=== PATIENT | female | born 1940 | race Caucasian/White ===

== ENCOUNTER → 2016-10-11 | Outpatient (CLI) | payer MEDICARE, OTHER ==
[~2016-10-11] MED LIST: DICL1GEL26 TD; HYDR-2549 PO; HYDR12.56 PO; LEVO125T59 PO; NIAC500T71 PO; NIFE30TA76 PO; RIVA20TA PO; TELM80TA PO
[2016-10-11 08:51] LABS: Basophils # (auto) 0.1 uL; Basophils % (auto) 0.7 % (0.0-2.0); Eosinophils # (auto) 0.4 uL; Eosinophils % (auto) 4.9 % (0.0-7.0); Hematocrit 38.2 % (36.0-46.0); Hemoglobin 12.9 g/dL (12.2-16.2); Lymphocytes # (auto) 2.4 uL; Lymphocytes % (auto) 28.2 % (10.0-50.0); Mean Corpuscular Hemoglobin 29.7 pg (28.0-32.0); Mean Corpuscular Hgb Conc. 33.8 g/dL (32.0-36.0); Mean Corpuscular Volume 87.8 fL (80.0-100.0); Mean Platelet Volume 7.8 fL (7.4-10.4); Monocytes # (auto) 0.6 uL; Monocytes % (auto) 6.8 % (0.0-12.0); Neutrophils % (auto) 59.4 % (37.0-80.0); Platelet Count (auto) 353 10^3/uL (140-450); Red Cell Distribution Width 13.9 % (11.6-16.0); White Blood Cell 8.4 10^3/uL (4.4-10.8)
[2016-10-11 09:03] LABS: Urine Bilirubin Negative (Negative); Urine Blood Negative /uL (Negative); Urine Color Yellow (Yellow); Urine Glucose Normal (Normal); Urine Ketone Negative (Negative); Urine Nitrite Negative (Negative); Urine RBC <1 /hpf (0 - 4); Urine Squamous Epithelial Cell FEW /hpf (<5); Urine Urobilinogen Normal (Negative)
[2016-10-11 09:19] LABS: Albumin 4.3 g/dL (3.4-5.0); BUN/Creatinine Ratio 25.9; Bilirubin, Total 0.6 mg/dL (0.2-1.0); Calcium 9.5 mg/dL (8.5-10.1); Total Protein 8.2 g/dL (6.4-8.2)
== END | disposition home or self-care (01) ==
LOC: LAB 08:26
DX: Z68.33 Body mass index [BMI] 33.0-33.9, adult (principal); I10 Essential (primary) hypertension; N18.3 Chronic kidney disease, stage 3 (moderate)
CPT/HCPCS: 36415; 80053; 80061; 81001; 83036; 84443; 85025

== ENCOUNTER → 2017-06-30 | Outpatient (CLI) | payer MEDICARE, OTHER ==
[2017-06-30 09:11] LABS: Albumin 4.1 g/dL (3.4-5.0); BUN/Creatinine Ratio 26.2; Bilirubin, Total 0.3 mg/dL (0.2-1.0); Calcium 9.3 mg/dL (8.5-10.1); Potassium 3.8 mmol/L (3.5-5.1); Uric Acid 7.7 mg/dL (2.6-6.0)
== END | disposition home or self-care (01) ==
LOC: LAB 08:19
PROVIDERS: ATTEND Internal Medicine
DX: I12.9 Hypertensive chronic kidney disease with stage 1 through stage 4 chronic kidney disease, or unspecified chronic kidney disease (principal); N18.4 Chronic kidney disease, stage 4 (severe)
CPT/HCPCS: 36415; 80053; 84550

== ENCOUNTER 2017-11-05 09:18 | Inpatient (IN) | payer MEDICARE, OTHER ==
[~2017-11-05] VITALS: Ht 149.9 cm; Wt 70.9 kg
[2017-11-05] VITALS (12 sets, daily range): BP systolic 121–187; BP diastolic 59–139
[2017-11-05 10:00] LABS: Basophils # (auto) 0.1 uL; Red Blood Cells 2.74 10^6/uL (4.0-5.20)
[2017-11-05 10:02] LABS: Eosinophils # (auto) 0.2 uL; Eosinophils % (auto) 1.7 % (0.0-7.0); Hematocrit 21.3 % (36.0-46.0); Lymphocytes # (auto) 1.3 uL; Lymphocytes % (auto) 9.4 % (10.0-50.0); Mean Corpuscular Hemoglobin 24.7 pg (28.0-32.0); Mean Corpuscular Hgb Conc. 31.7 g/dL (32.0-36.0); Mean Corpuscular Volume 77.9 fL (80.0-100.0); Monocytes # (auto) 0.6 uL; Monocytes % (auto) 4.2 % (0.0-12.0); Neutrophils # (auto) 11.6 uL; Neutrophils % (auto) 83.7 % (37.0-80.0); Platelet Count (auto) 343 10^3/uL (140-450); Red Cell Distribution Width 15.8 % (11.8-14.3); White Blood Cell 13.9 10^3/uL (4.4-10.8)
[2017-11-05 10:16] LABS: Albumin 3.4 g/dL (3.4-5.0); BUN/Creatinine Ratio 17.4; Calcium 8.4 mg/dL (8.5-10.1)
[2017-11-05 10:18] LABS: Hemoglobin 6.8 g/dL (12.2-16.2)
[2017-11-05 10:21] LABS: Bilirubin, Total 0.3 mg/dL (0.2-1.0); Total Protein 7.2 g/dL (6.4-8.2)
[2017-11-05] MEDS ORDERED: SODIUM CHLORIDE 0.9% 1,000 ML IV ONE (11:14)
[2017-11-05 11:59] LABS: INR 0.96 (0.9-1.15); Magnesium 2.8 mg/dL (1.6-2.6); Partial Thromboplastin Time 28.7 sec (23.78-33.04); Prothrombin Time 10.3 sec (9.27-12.13)
[2017-11-05 15:13] LABS: Urine Bacteria FEW /hpf (None Seen); Urine Blood Negative /uL (Negative); Urine Specific Gravity 1.008 (1.001-1.035); Urine WBC 9 /hpf (0 - 5)
[2017-11-05] MEDS ORDERED: LORazepam 2MG/ML-1ML VIAL ONE (18:26)
[2017-11-05] MEDS ORDERED: DILTIAZEM HCL 25 MG/5 ML VIAL IV ONE (18:26)
[2017-11-05] MEDS ORDERED: FUROSEMIDE 40 MG/4 ML VIAL ONE (18:35)
[2017-11-05] MEDS ORDERED: ACETAMINOPHEN 500 MG TAB PO PRN (18:45)
[2017-11-05] MEDS ORDERED: TEMAZEPAM 15 MG CAP PO PRN (18:45)
[2017-11-05] MEDS ORDERED: FUROSEMIDE 40 MG/4 ML VIAL IV ONE ×2 (18:45)
[2017-11-05] MEDS ORDERED: LACTULOSE 20Gm/30ML SOLN PO PRN (18:45)
[2017-11-05] MEDS ORDERED: SPIRONOLACTONE 25 MG TAB PO ONE ×2 (18:45)
[2017-11-05] MEDS ORDERED: NITROGLYCERIN 0.4 MG SL TAB SL PRN (18:45)
[2017-11-05] MEDS ORDERED: cefTRIAXone 1GM/10ml IVPUSH 10 ML IV ONE (18:45)
[2017-11-05] MEDS ORDERED: PANTOPRAZOLE 40 MG/10 ML VIAL IV ONE (18:45)
[2017-11-05] MEDS ORDERED: LORazepam 0.5 MG TAB PO PRN (18:45)
[2017-11-05] MEDS ORDERED: MORPHINE SULF INJ 2 MG/ML SYRINGE 1ML IV PRN ×2 (18:45)
[2017-11-05] MEDS ORDERED: NITROGLYCERIN 0.4 MG SL TAB SL ONE ×2 (18:48→19:00)
[2017-11-05] MEDS ORDERED: MORPHINE SULFATE 4 MG/ML SYR/VIAL ONE (18:51)
[2017-11-05] MEDS ORDERED: PROMETHAZINE HCL 25 MG/ML 1ML ONE ×2 (18:52→18:56)
[2017-11-05] MEDS ORDERED: PROMETHAZINE HCL 25 MG/ML 1ML IV ONE ×3 (19:00→19:15)
[2017-11-05] MEDS ORDERED: MORPHINE SULF INJ 2 MG/ML SYRINGE 1ML IV ONE ×2 (19:00→19:15)
[2017-11-05] MEDS ORDERED: LORazepam 2MG/ML-1ML VIAL IV ONE (19:00)
[2017-11-05 19:19] LABS: Basophils # (auto) 0.2 uL; Basophils % (auto) 1.1 % (0.0-2.0); Eosinophils # (auto) 0 uL; Eosinophils % (auto) 0.1 % (0.0-7.0); Hematocrit 31.5 % (36.0-46.0); Hemoglobin 9.7 g/dL (12.2-16.2); Lymphocytes # (auto) 1.8 uL; Lymphocytes % (auto) 11.3 % (10.0-50.0); Mean Corpuscular Hemoglobin 24.6 pg (28.0-32.0); Mean Corpuscular Hgb Conc. 30.8 g/dL (32.0-36.0); Mean Corpuscular Volume 79.8 fL (80.0-100.0); Monocytes # (auto) 0.9 uL; Monocytes % (auto) 5.7 % (0.0-12.0); Neutrophils # (auto) 12.8 uL; Neutrophils % (auto) 81.8 % (37.0-80.0); Platelet Count (auto) 413 10^3/uL (140-450); Red Blood Cells 3.94 10^6/uL (4.0-5.20); Red Cell Distribution Width 16.1 % (11.8-14.3); White Blood Cell 15.6 10^3/uL (4.4-10.8)
[2017-11-05 19:20] LABS: Albumin 3.7 g/dL (3.4-5.0); BUN/Creatinine Ratio 16.2; Bilirubin, Total 0.3 mg/dL (0.2-1.0); Calcium 8.9 mg/dL (8.5-10.1); Potassium 4.2 mmol/L (3.5-5.1); Total Protein 7.9 g/dL (6.4-8.2)
[2017-11-05] MEDS: FUROSEMIDE 40 MG/4 ML VIAL IV SCH (20:21)
[2017-11-05] MEDS: SODIUM CHLOR 0.9% PF (SALINE LOCK) 10ML VIAL/SYR IV SCH (20:23)
[2017-11-05] MEDS ORDERED: ATORVASTATIN 20 MG TAB PO SCH (22:00)
[2017-11-05] MEDS: POTASSIUM CHL 20 Meq TABLET PO SCH (22:47)
[2017-11-05] MEDS: PANTOPRAZOLE 40 MG TAB PO SCH (22:47)
[2017-11-05] MEDS: CARVEDILOL 3.125 MG TAB PO SCH (22:47)
[2017-11-06] VITALS (52 sets, daily range): BP systolic 71–157; BP diastolic 40–92
[2017-11-06 00:51] LABS: Hemoglobin 8.1 g/dL (12.2-16.2)
[2017-11-06] MEDS: HYDROcodone-ACET 5/325MG TAB PO PRN ×2 (00:52→16:37)
[2017-11-06 00:53] LABS: Hematocrit 25.4 % (36.0-46.0)
[2017-11-06 04:59] LABS: Basophils # (auto) 0.1 uL; Eosinophils # (auto) 0 uL; Eosinophils % (auto) 0.2 % (0.0-7.0); Lymphocytes # (auto) 1.2 uL; Lymphocytes % (auto) 9.9 % (10.0-50.0)
[2017-11-06 05:12] LABS: Basophils % (auto) 0.7 % (0.0-2.0); Hematocrit 24.3 % (36.0-46.0); Hemoglobin 7.8 g/dL (12.2-16.2); Mean Corpuscular Hemoglobin 25.3 pg (28.0-32.0); Mean Corpuscular Hgb Conc. 32.3 g/dL (32.0-36.0); Mean Corpuscular Volume 78.3 fL (80.0-100.0); Monocytes # (auto) 0.8 uL; Neutrophils # (auto) 9.7 uL; Neutrophils % (auto) 82.2 % (37.0-80.0); Platelet Count (auto) 296 10^3/uL (140-450); White Blood Cell 11.8 10^3/uL (4.4-10.8)
[2017-11-06 06:02] LABS: BUN/Creatinine Ratio 15.9; Bilirubin, Total 0.5 mg/dL (0.2-1.0); Calcium 8.4 mg/dL (8.5-10.1); Potassium 4.1 mmol/L (3.5-5.1); Total Protein 6.6 g/dL (6.4-8.2)
[2017-11-06] MEDS: FUROSEMIDE 40 MG/4 ML VIAL IV SCH ×2 (06:26→19:19)
[2017-11-06] MEDS: SODIUM CHLOR 0.9% PF (SALINE LOCK) 10ML VIAL/SYR IV SCH ×3 (06:26→21:06)
[2017-11-06] MEDS ORDERED: NITROGLYCERIN 50MG/250ML 250 ML IV SCH (09:07)
[2017-11-06] MEDS: cefTRIAXone 1GM/10ml IVPUSH 10 ML IV SCH (09:35)
[2017-11-06] MEDS: PANTOPRAZOLE 40 MG TAB PO SCH ×2 (09:35→21:08)
[2017-11-06] MEDS: POTASSIUM CHL 20 Meq TABLET PO SCH ×2 (09:35→21:06)
[2017-11-06] MEDS: CARVEDILOL 3.125 MG TAB PO SCH ×2 (09:36→21:07)
[2017-11-06] MEDS ORDERED: ENOXAPARIN SOD 80 MG/0.8ML SYRINGE SC SCH (10:00)
[2017-11-06] MEDS ORDERED: ASPirin 81 mg TAB PO SCH (10:00)
[2017-11-06] MEDS ORDERED: ENALAPRIL MALEATE 2.5 MG TAB PO SCH (10:00)
[2017-11-06] MEDS ORDERED: NITROGLYCERIN 0.2MG/HR TOPICAL PATCH TD SCH (10:00)
[2017-11-06 13:59] LABS: Hematocrit 27.6 % (36.0-46.0)
[2017-11-06 14:01] LABS: Hemoglobin 8.7 g/dL (12.2-16.2)
[2017-11-06] MEDS ORDERED: AMIODARONE HCL 150 MG in D5W 5% 100 ML IV ONE (18:30)
[2017-11-06] MEDS ORDERED: AMIODARONE HCL 900 MG in DEXTROSE 500 ML IV SCH (18:36)
[2017-11-06] MEDS ORDERED: EPOETIN ALFA 10,000 UNIT/1 ML VIAL IV ONE (20:00)
[2017-11-06] MEDS: TRAVOPROST 0.004% EACHEYE SCH (21:06)
[2017-11-06] MEDS: ATORVASTATIN 20 MG TAB PO SCH (21:07)
[2017-11-07] VITALS (57 sets, daily range): BP systolic 92–151; BP diastolic 33–80
[2017-11-07] MEDS ORDERED: AMIODARONE HCL 900 MG in DEXTROSE 500 ML IV SCH (00:36)
[2017-11-07 04:43] LABS: Basophils # (auto) 0.1 uL; Basophils % (auto) 1.1 % (0.0-2.0); Eosinophils # (auto) 0.3 uL; Hematocrit 25.3 % (36.0-46.0); Red Blood Cells 3.27 10^6/uL (4.0-5.20)
[2017-11-07 04:46] LABS: Eosinophils % (auto) 3.2 % (0.0-7.0); Hemoglobin 8.3 g/dL (12.2-16.2); Lymphocytes # (auto) 1.7 uL; Lymphocytes % (auto) 16.8 % (10.0-50.0); Mean Corpuscular Hemoglobin 25.3 pg (28.0-32.0); Mean Corpuscular Hgb Conc. 32.7 g/dL (32.0-36.0); Mean Corpuscular Volume 77.3 fL (80.0-100.0); Monocytes # (auto) 0.8 uL; Neutrophils # (auto) 7.4 uL; Neutrophils % (auto) 70.9 % (37.0-80.0); Platelet Count (auto) 324 10^3/uL (140-450); White Blood Cell 10.4 10^3/uL (4.4-10.8)
[2017-11-07 05:03] LABS: BUN/Creatinine Ratio 16.3; Bilirubin, Total 0.4 mg/dL (0.2-1.0); Calcium 8.2 mg/dL (8.5-10.1); Total Protein 6.6 g/dL (6.4-8.2)
[2017-11-07] MEDS: FUROSEMIDE 40 MG/4 ML VIAL IV SCH (05:55)
[2017-11-07] MEDS: SODIUM CHLOR 0.9% PF (SALINE LOCK) 10ML VIAL/SYR IV SCH ×3 (05:55→21:59)
[2017-11-07] MEDS ORDERED: FUROSEMIDE 40 MG/4 ML VIAL IV SCH (10:00)
[2017-11-07] MEDS ORDERED: ENOXAPARIN SOD 80 MG/0.8ML SYRINGE SC SCH (10:00)
[2017-11-07] MEDS: cefTRIAXone 1GM/10ml IVPUSH 10 ML IV SCH (10:27)
[2017-11-07] MEDS: CARVEDILOL 3.125 MG TAB PO SCH (10:32)
[2017-11-07] MEDS: POTASSIUM CHL 20 Meq TABLET PO SCH ×2 (10:32→22:01)
[2017-11-07] MEDS: PANTOPRAZOLE 40 MG TAB PO SCH ×2 (10:33→22:02)
[2017-11-07] MEDS ORDERED: DOCUSATE SOD 100 MG CAP PO ONE (14:00)
[2017-11-07] MEDS: TRAVOPROST 0.004% EACHEYE SCH (21:59)
[2017-11-07] MEDS ORDERED: CARVEDILOL 3.125 MG TAB PO SCH (22:00)
[2017-11-07] MEDS: AMIODARONE HCL 200 MG TAB PO SCH (22:00)
[2017-11-07] MEDS: ATORVASTATIN 20 MG TAB PO SCH (22:02)
[2017-11-07] MEDS: DOCUSATE SOD 100 MG CAP PO SCH (22:04)
[2017-11-07] MEDS: HYDROcodone-ACET 5/325MG TAB PO PRN (22:04)
[2017-11-08 00:11] VITALS: BP 96/42
[2017-11-08 04:00] VITALS: BP 105/44
[2017-11-08 05:40] LABS: Basophils # (auto) 0.1 uL; Monocytes # (auto) 0.8 uL; Neutrophils # (auto) 6.4 uL; Neutrophils % (auto) 63.8 % (37.0-80.0); Nucleated Red Blood Cells % 0.1 %; Red Cell Distribution Width 16.1 % (11.8-14.3)
[2017-11-08 05:42] LABS: Basophils % (auto) 1.3 % (0.0-2.0); Eosinophils # (auto) 0.7 uL; Eosinophils % (auto) 6.5 % (0.0-7.0); Hematocrit 27.7 % (36.0-46.0); Hemoglobin 8.6 g/dL (12.2-16.2); Lymphocytes % (auto) 20.1 % (10.0-50.0); Mean Corpuscular Volume 80.5 fL (80.0-100.0); Monocytes % (auto) 8.3 % (0.0-12.0); Platelet Count (auto) 327 10^3/uL (140-450); Red Blood Cells 3.45 10^6/uL (4.0-5.20)
[2017-11-08] MEDS: SODIUM CHLOR 0.9% PF (SALINE LOCK) 10ML VIAL/SYR IV SCH ×3 (05:49→22:18)
[2017-11-08] MEDS: HYDROcodone-ACET 5/325MG TAB PO PRN ×2 (05:49→21:29)
[2017-11-08 06:00] LABS: Albumin 2.7 g/dL (3.4-5.0); Calcium 8.2 mg/dL (8.5-10.1); Potassium 4.1 mmol/L (3.5-5.1)
[2017-11-08 06:02] LABS: BUN/Creatinine Ratio 19.7
[2017-11-08 06:05] LABS: Bilirubin, Total 0.3 mg/dL (0.2-1.0); Total Protein 6.5 g/dL (6.4-8.2)
[2017-11-08 07:58] VITALS: BP 122/53
[2017-11-08] MEDS ORDERED: cefTRIAXone 1GM/10ml IVPUSH 10 ML IV SCH (09:00)
[2017-11-08] MEDS: CARVEDILOL 3.125 MG TAB PO SCH ×2 (10:12→21:31)
[2017-11-08] MEDS: AMIODARONE HCL 200 MG TAB PO SCH ×2 (10:12→21:31)
[2017-11-08] MEDS: PANTOPRAZOLE 40 MG TAB PO SCH ×2 (10:13→21:29)
[2017-11-08] MEDS: DOCUSATE SOD 100 MG CAP PO SCH ×2 (10:13→21:29)
[2017-11-08 14:06] VITALS: BP 113/46
[2017-11-08 17:00] VITALS: BP 139/57
[2017-11-08] MEDS: TRAVOPROST 0.004% EACHEYE SCH (21:44)
[2017-11-08 21:50] VITALS: BP 131/51
[2017-11-08] MEDS: ATORVASTATIN 20 MG TAB PO SCH (22:18)
[2017-11-09 01:00] VITALS: BP 97/45
[2017-11-09 05:52] VITALS: BP 121/45
[2017-11-09 06:35] LABS: Basophils # (auto) 0.1 uL; Eosinophils # (auto) 0.6 uL; Lymphocytes # (auto) 1.5 uL; Mean Corpuscular Hemoglobin 24.7 pg (28.0-32.0); Mean Corpuscular Volume 78.1 fL (80.0-100.0)
[2017-11-09 06:37] LABS: Basophils % (auto) 1.5 % (0.0-2.0); Eosinophils % (auto) 6.7 % (0.0-7.0); Hematocrit 27.4 % (36.0-46.0); Hemoglobin 8.7 g/dL (12.2-16.2); Lymphocytes % (auto) 16.2 % (10.0-50.0); Mean Corpuscular Hgb Conc. 31.6 g/dL (32.0-36.0); Monocytes # (auto) 0.7 uL; Monocytes % (auto) 8.3 % (0.0-12.0); Neutrophils % (auto) 67.3 % (37.0-80.0); Nucleated Red Blood Cells % 0.1 %; Platelet Count (auto) 369 10^3/uL (140-450); Red Blood Cells 3.51 10^6/uL (4.0-5.20); Red Cell Distribution Width 15.7 % (11.8-14.3)
[2017-11-09] MEDS: SODIUM CHLOR 0.9% PF (SALINE LOCK) 10ML VIAL/SYR IV SCH ×3 (06:42→22:18)
[2017-11-09 06:58] LABS: Calcium 8.4 mg/dL (8.5-10.1); Potassium 4.2 mmol/L (3.5-5.1)
[2017-11-09 07:00] LABS: BUN/Creatinine Ratio 24.7
[2017-11-09 09:00] VITALS: BP 140/69
[2017-11-09] MEDS: DOCUSATE SOD 100 MG CAP PO SCH ×2 (10:42→22:00)
[2017-11-09] MEDS: PANTOPRAZOLE 40 MG TAB PO SCH ×2 (10:42→22:18)
[2017-11-09] MEDS: AMIODARONE HCL 200 MG TAB PO SCH ×2 (10:43→22:09)
[2017-11-09] MEDS: CARVEDILOL 3.125 MG TAB PO SCH ×2 (10:43→22:17)
[2017-11-09] MEDS ORDERED: EPOETIN ALFA 10,000 UNIT/1 ML VIAL SC ONE (12:30)
[2017-11-09 13:00] VITALS: BP_SYST 146; BP_SYST 153; BP_DIAS 62; BP_DIAS 72
[2017-11-09] MEDS: FERROUS SULFATE 325 MG TAB PO SCH (18:23)
[2017-11-09 22:00] VITALS: BP 132/52
[2017-11-09] MEDS: ATORVASTATIN 20 MG TAB PO SCH (22:18)
[2017-11-09] MEDS: TRAVOPROST 0.004% EACHEYE SCH (22:18)
[2017-11-09] MEDS: HYDROcodone-ACET 5/325MG TAB PO PRN (22:48)
[2017-11-10 05:00] VITALS: BP 98/69
[2017-11-10] MEDS: SODIUM CHLOR 0.9% PF (SALINE LOCK) 10ML VIAL/SYR IV SCH ×3 (06:42→22:03)
[2017-11-10 07:27] LABS: Hematocrit 26.5 % (36.0-46.0); Hemoglobin 8.5 g/dL (12.2-16.2)
[2017-11-10 07:43] LABS: BUN/Creatinine Ratio 22.6; Calcium 8.9 mg/dL (8.5-10.1)
[2017-11-10] MEDS: FERROUS SULFATE 325 MG TAB PO SCH ×2 (09:02→17:45)
[2017-11-10] MEDS: AMIODARONE HCL 200 MG TAB PO SCH (09:03)
[2017-11-10] MEDS: PANTOPRAZOLE 40 MG TAB PO SCH (09:03)
[2017-11-10] MEDS: DOCUSATE SOD 100 MG CAP PO SCH ×2 (09:03→21:53)
[2017-11-10] MEDS: CARVEDILOL 3.125 MG TAB PO SCH (09:04)
[2017-11-10 09:57] VITALS: BP 141/51
[2017-11-10] MEDS ORDERED: LEVOTHYROXINE SODIUM 50 MCG TAB PO ONE (11:30)
[2017-11-10 13:00] VITALS: BP 143/60
[2017-11-10 17:13] VITALS: BP 135/59
[2017-11-10] MEDS: ATORVASTATIN 20 MG TAB PO SCH (21:49)
[2017-11-10] MEDS: METOPROLOL TARTRATE 25 MG TAB PO SCH (21:52)
[2017-11-10] MEDS: HYDROcodone-ACET 5/325MG TAB PO PRN (21:53)
[2017-11-10 22:00] VITALS: BP 139/56
[2017-11-10] MEDS: TRAVOPROST 0.004% EACHEYE SCH (22:00)
[2017-11-10] MEDS ORDERED: MIRTAZAPINE 30 MG TAB PO SCH (22:00)
[2017-11-11 05:30] VITALS: BP 126/58
[2017-11-11] MEDS: SODIUM CHLOR 0.9% PF (SALINE LOCK) 10ML VIAL/SYR IV SCH (06:18)
[2017-11-11] MEDS ORDERED: LEVOTHYROXINE SODIUM 50 MCG TAB PO SCH (07:00)
[2017-11-11 07:39] VITALS: BP 137/59
[2017-11-11] MEDS: DOCUSATE SOD 100 MG CAP PO SCH (09:15)
[2017-11-11] MEDS: FERROUS SULFATE 325 MG TAB PO SCH (09:15)
[2017-11-11] MEDS: METOPROLOL TARTRATE 25 MG TAB PO SCH (09:21)
[2017-11-11] MEDS ORDERED: PANTOPRAZOLE 40 MG TAB PO SCH (10:00)
[2017-11-11] MEDS ORDERED: FER325T PO (10:52)
[2017-11-11] MEDS ORDERED: MIR30T PO (10:52)
[2017-11-11] MEDS ORDERED: MET25T PO (10:52)
[2017-11-11] MEDS ORDERED: ATOR20TA50 PO (10:52)
[2017-11-11 12:29] VITALS: BP 142/51
== END 2017-11-11 13:51 | disposition home health service (06) | DRG 871 ==
LOC: ER 09:18 → EDBD 09:18 → TELE 09:19 → ICU WEST 11-06 08:00 → DOU IN ICU 11-06 17:26 → EAST 11-08 13:24 → TELE-EAST 11-08 13:42
PROVIDERS: ADMIT Internal Medicine; ATTEND Internal Medicine
PROC: 5A09357 Assistance with Respiratory Ventilation, Less than 24 Consecutive Hours, Continuous Positive Airway Pressure (ICD-10-PCS; principal; 2017-11-05)
PROC: 30233N1 Transfusion of Nonautologous Red Blood Cells into Peripheral Vein, Percutaneous Approach (ICD-10-PCS; 2017-11-05)
PROC: 5A09357 Assistance with Respiratory Ventilation, Less than 24 Consecutive Hours, Continuous Positive Airway Pressure (ICD-10-PCS; 2017-11-06)
PROC: 5A09357 Assistance with Respiratory Ventilation, Less than 24 Consecutive Hours, Continuous Positive Airway Pressure (ICD-10-PCS; 2017-11-07)
PROC: 5A09357 Assistance with Respiratory Ventilation, Less than 24 Consecutive Hours, Continuous Positive Airway Pressure (ICD-10-PCS; 2017-11-08)
PROC: 5A09357 Assistance with Respiratory Ventilation, Less than 24 Consecutive Hours, Continuous Positive Airway Pressure (ICD-10-PCS; 2017-11-09)
PROC: 5A09357 Assistance with Respiratory Ventilation, Less than 24 Consecutive Hours, Continuous Positive Airway Pressure (ICD-10-PCS; 2017-11-10)
PROC: 5A09357 Assistance with Respiratory Ventilation, Less than 24 Consecutive Hours, Continuous Positive Airway Pressure (ICD-10-PCS; 2017-11-11)
DX: A41.9 Sepsis, unspecified organism (principal); J96.00 Acute respiratory failure, unspecified whether with hypoxia or hypercapnia; I21.4 Non-ST elevation (NSTEMI) myocardial infarction; N17.0 Acute kidney failure with tubular necrosis; I50.31 Acute diastolic (congestive) heart failure; N18.4 Chronic kidney disease, stage 4 (severe); N39.0 Urinary tract infection, site not specified; I13.0 Hypertensive heart and chronic kidney disease with heart failure and stage 1 through stage 4 chronic kidney disease, or unspecified chronic kidney disease; I51.81 Takotsubo syndrome; D64.9 Anemia, unspecified; E78.5 Hyperlipidemia, unspecified; E03.9 Hypothyroidism, unspecified; D63.8 Anemia in other chronic diseases classified elsewhere; G47.33 Obstructive sleep apnea (adult) (pediatric); I25.5 Ischemic cardiomyopathy; I48.91 Unspecified atrial fibrillation; Z96.612 Presence of left artificial shoulder joint; Z96.643 Presence of artificial hip joint, bilateral; Z96.653 Presence of artificial knee joint, bilateral; M19.90 Unspecified osteoarthritis, unspecified site; Z79.899 Other long term (current) drug therapy; Z88.2 Allergy status to sulfonamides; Z90.49 Acquired absence of other specified parts of digestive tract; Z98.49 Cataract extraction status, unspecified eye; Z79.82 Long term (current) use of aspirin; Z80.1 Family history of malignant neoplasm of trachea, bronchus and lung; Z80.3 Family history of malignant neoplasm of breast; Z80.41 Family history of malignant neoplasm of ovary; Z80.8 Family history of malignant neoplasm of other organs or systems; Z82.0 Family history of epilepsy and other diseases of the nervous system; Z82.3 Family history of stroke
CPT/HCPCS: 36415; 36430; 36600; 51702; 71045; 71046; 76775; 80048; 80053; 80061; 81001; 82270; 82378; 82550; 82805; 83735; 83880; 84443; 84484; 85014; 85018; 85025; 85045; 85379; 85610; 85652; 85730; 86141; 86850; 86900; 86901; 86920; 87081; 87086; 93005; 93306; 94660; 96361; 96374; 96375; 97116; 97163; 97530; C9113; J0885; J7060

== ENCOUNTER → 2018-02-25 | Outpatient (CLI) | payer MEDICARE, OTHER ==
[~2018-02-25] MED LIST changes: +ATOR20TA50 PO; +FER325T PO; -HYDR12.56 PO; +MET25T PO; +MIR30T PO; -NIFE30TA76 PO; -RIVA20TA PO; -TELM80TA PO
[2018-02-25 12:26] LABS: Potassium 3.4 mmol/L (3.5-5.1)
[2018-02-25 12:37] LABS: Free T4 (Free Thyroxine) 1.24 ng/dL (0.89-1.76)
[2018-02-25 12:38] LABS: Bilirubin, Total 0.3 mg/dL (0.2-1.0); Calcium 9.3 mg/dL (8.5-10.1); Total Protein 8.4 g/dL (6.4-8.2); Uric Acid 6.1 mg/dL (2.6-6.0)
== END | disposition home or self-care (01) ==
LOC: LAB 11:02
PROVIDERS: ATTEND Internal Medicine
DX: I12.9 Hypertensive chronic kidney disease with stage 1 through stage 4 chronic kidney disease, or unspecified chronic kidney disease (principal); N18.4 Chronic kidney disease, stage 4 (severe); D64.9 Anemia, unspecified
CPT/HCPCS: 36415; 80053; 82607; 83540; 83615; 84439; 84443; 84550

== ENCOUNTER → 2018-07-29 | Outpatient (CLI) | payer MEDICARE, OTHER ==
[2018-07-29 14:04] LABS: Basophils # (auto) 0.1 uL; Basophils % (auto) 1.2 % (0.0-2.0); Eosinophils # (auto) 0.4 uL; Eosinophils % (auto) 4.6 % (0.0-7.0); Hemoglobin 12.9 g/dL (12.2-16.2); Lymphocytes # (auto) 1.5 uL; Lymphocytes % (auto) 19.6 % (10.0-50.0); Mean Corpuscular Hemoglobin 30.3 pg (28.0-32.0); Mean Corpuscular Hgb Conc. 33.1 g/dL (32.0-36.0); Mean Corpuscular Volume 91.6 fL (80.0-100.0); Monocytes # (auto) 0.5 uL; Monocytes % (auto) 6.6 % (0.0-12.0); Neutrophils # (auto) 5.4 uL; Nucleated Red Blood Cells % 1.8 %; Platelet Count (auto) 318 10^3/uL (140-450); Red Blood Cells 4.26 10^6/uL (4.0-5.20); Red Cell Distribution Width 13.4 % (11.8-14.3); White Blood Cell 7.9 10^3/uL (4.4-10.8)
[2018-07-29 14:27] LABS: Albumin 4.3 g/dL (3.4-5.0); BUN/Creatinine Ratio 22.9; Calcium 9.7 mg/dL (8.5-10.1)
[2018-07-29 14:30] LABS: Bilirubin, Total 0.3 mg/dL (0.2-1.0); Total Protein 8.8 g/dL (6.4-8.2)
== END | disposition home or self-care (01) ==
LOC: LAB 13:48
PROVIDERS: ATTEND Internal Medicine
DX: I12.9 Hypertensive chronic kidney disease with stage 1 through stage 4 chronic kidney disease, or unspecified chronic kidney disease (principal); N18.3 Chronic kidney disease, stage 3 (moderate); D64.9 Anemia, unspecified
CPT/HCPCS: 36415; 80053; 84439; 84443; 85025

== ENCOUNTER → 2018-11-19 | Outpatient (CLI) | payer MEDICARE, OTHER ==
[2018-11-19 15:33] LABS: Urine Bacteria NONE SEEN /hpf (None Seen); Urine Blood Negative /uL (Negative); Urine Specific Gravity 1.005 (1.001-1.035); Urine WBC 3 /hpf (0 - 5)
== END | disposition home or self-care (01) ==
LOC: LAB 14:53
PROVIDERS: ATTEND Urology
DX: N32.81 Overactive bladder (principal); R35.1 Nocturia; I12.9 Hypertensive chronic kidney disease with stage 1 through stage 4 chronic kidney disease, or unspecified chronic kidney disease; N18.4 Chronic kidney disease, stage 4 (severe)
CPT/HCPCS: 81001; 87086

== ENCOUNTER → 2018-12-11 | Outpatient (CLI) | payer MEDICARE, OTHER ==
[2018-12-11 09:01] LABS: Basophils # (auto) 0.1 uL; Basophils % (auto) 1.8 % (0.0-2.0); Eosinophils # (auto) 0.4 uL; Eosinophils % (auto) 5.3 % (0.0-7.0); Hematocrit 35.6 % (36.0-46.0); Hemoglobin 11.8 g/dL (12.2-16.2); Lymphocytes # (auto) 1.6 uL; Lymphocytes % (auto) 19.3 % (10.0-50.0); Mean Corpuscular Hemoglobin 29.9 pg (28.0-32.0); Mean Corpuscular Volume 90.6 fL (80.0-100.0); Monocytes # (auto) 0.5 uL; Monocytes % (auto) 6.4 % (0.0-12.0); Neutrophils # (auto) 5.4 uL; Neutrophils % (auto) 67.2 % (37.0-80.0); Platelet Count (auto) 343 10^3/uL (140-450); Red Blood Cells 3.93 10^6/uL (4.0-5.20); Red Cell Distribution Width 13.9 % (11.8-14.3)
[2018-12-11 09:11] LABS: Urine Bacteria FEW /hpf (None Seen); Urine Blood Negative /uL (Negative); Urine Specific Gravity 1.006 (1.001-1.035); Urine WBC 3 /hpf (0 - 5)
[2018-12-11 10:47] LABS: Potassium 3.9 mmol/L (3.5-5.1)
[2018-12-11 10:56] LABS: BUN/Creatinine Ratio 23.2; Bilirubin, Total 0.5 mg/dL (0.2-1.0); Calcium 9.4 mg/dL (8.5-10.1); Phosphorus 4.2 mg/dL (2.5-4.90); Total Protein 8.2 g/dL (6.4-8.2); Uric Acid 6.4 mg/dL (2.6-6.0)
== END | disposition home or self-care (01) ==
LOC: LAB 08:02
PROVIDERS: ATTEND Internal Medicine
DX: I12.9 Hypertensive chronic kidney disease with stage 1 through stage 4 chronic kidney disease, or unspecified chronic kidney disease (principal); N18.4 Chronic kidney disease, stage 4 (severe); E03.9 Hypothyroidism, unspecified; E78.5 Hyperlipidemia, unspecified
CPT/HCPCS: 36415; 80053; 80061; 81001; 82043; 82962; 83970; 84100; 84439; 84443; 84550; 85025; 85652

== ENCOUNTER → 2019-03-22 | Outpatient (CLI) | payer MEDICARE, OTHER | END | disposition home or self-care (01) | LOC: LAB 09:08 | PROVIDERS: ATTEND Internal Medicine | DX: D64.9 Anemia, unspecified (principal) | CPT/HCPCS: 82270 ==

== ENCOUNTER → 2019-07-06 | Outpatient (CLI) | payer MEDICARE, OTHER ==
[2019-07-06 12:38] LABS: Basophils # (auto) 0.1 uL; Eosinophils # (auto) 0.2 uL; Eosinophils % (auto) 2.9 % (0.0-7.0); Hematocrit 37.9 % (36.0-46.0); Hemoglobin 12.4 g/dL (12.2-16.2); Lymphocytes # (auto) 1.6 uL; Lymphocytes % (auto) 18.5 % (10.0-50.0); Mean Corpuscular Hemoglobin 29.7 pg (28.0-32.0); Mean Corpuscular Hgb Conc. 32.7 g/dL (32.0-36.0); Mean Corpuscular Volume 90.8 fL (80.0-100.0); Monocytes # (auto) 0.5 uL; Neutrophils # (auto) 6.1 uL; Neutrophils % (auto) 71.6 % (37.0-80.0); Nucleated Red Blood Cells % 0.1 %; Platelet Count (auto) 312 10^3/uL (140-450); Red Blood Cells 4.17 10^6/uL (4.0-5.20); Red Cell Distribution Width 14.1 % (11.8-14.3); White Blood Cell 8.5 10^3/uL (4.4-10.8)
[2019-07-06 13:12] LABS: Albumin 4.3 g/dL (3.4-5.0); BUN/Creatinine Ratio 24.9; Bilirubin, Total 0.3 mg/dL (0.2-1.0); Calcium 9.9 mg/dL (8.5-10.1); Total Protein 8.6 g/dL (6.4-8.2); Uric Acid 6.1 mg/dL (2.6-6.0)
== END | disposition home or self-care (01) ==
LOC: LAB 11:49
PROVIDERS: ATTEND Internal Medicine
DX: E83.52 Hypercalcemia (principal); I12.9 Hypertensive chronic kidney disease with stage 1 through stage 4 chronic kidney disease, or unspecified chronic kidney disease; N18.3 Chronic kidney disease, stage 3 (moderate)
CPT/HCPCS: 36415; 80053; 82043; 82784; 83970; 84439; 84443; 84550; 85025; 85652; 86334

== ENCOUNTER → 2019-11-10 | Outpatient (CLI) | payer MEDICARE, OTHER ==
[2019-11-10 09:29] LABS: Basophils # (auto) 0.1 10 ^3/uL (0-0.2); Basophils % (auto) 0.9 % (0.0-2.0); Eosinophils # (auto) 0.3 10 ^3/uL (0-0.8); Eosinophils % (auto) 4.1 % (0.0-7.0); Hematocrit 35.6 % (36.0-46.0); Hemoglobin 11.8 g/dL (12.2-16.2); Lymphocytes # (auto) 1.3 10 ^3/uL (0.4-5.4); Lymphocytes % (auto) 15.7 % (10.0-50.0); Mean Corpuscular Hemoglobin 29.7 pg (28.0-32.0); Mean Corpuscular Hgb Conc. 33.1 g/dL (32.0-36.0); Mean Corpuscular Volume 89.6 fL (80.0-100.0); Monocytes # (auto) 0.5 10 ^3/uL (0-1.3); Monocytes % (auto) 6.1 % (0.0-12.0); Neutrophils # (auto) 6.3 10 ^3/uL (1.6-8.6); Neutrophils % (auto) 73.2 % (37.0-80.0); Platelet Count (auto) 324 10^3/uL (140-450); Red Blood Cells 3.97 10^6/uL (4.0-5.20); Red Cell Distribution Width 14.2 % (11.8-14.3); White Blood Cell 8.6 10^3/uL (4.4-10.8)
[2019-11-10 09:35] LABS: Urine Bacteria NONE SEEN /hpf (None Seen); Urine Blood Negative /uL (Negative); Urine Specific Gravity 1.005 (1.001-1.035); Urine WBC 3 /hpf (0 - 5)
[2019-11-10 09:53] LABS: Albumin 4.1 g/dL (3.4-5.0); Calcium 8.5 mg/dL (8.5-10.1); Potassium 3.8 mmol/L (3.5-5.1)
[2019-11-10 09:58] LABS: BUN/Creatinine Ratio 22.3; Bilirubin, Total 0.5 mg/dL (0.2-1.0); Phosphorus 5.3 mg/dL (2.5-4.90); Total Protein 8.2 g/dL (6.4-8.2)
== END | disposition home or self-care (01) ==
LOC: LAB 08:54
PROVIDERS: ATTEND Internal Medicine
DX: I12.9 Hypertensive chronic kidney disease with stage 1 through stage 4 chronic kidney disease, or unspecified chronic kidney disease (principal); N18.4 Chronic kidney disease, stage 4 (severe); R06.00 Dyspnea, unspecified
CPT/HCPCS: 36415; 80053; 80061; 81001; 82043; 82306; 83880; 83970; 84100; 84439; 84443; 85025; 85652

== ENCOUNTER → 2020-02-10 | Outpatient (CLI) | payer MEDICARE, OTHER ==
[2020-02-10 10:52] LABS: Basophils # (auto) 0.1 10 ^3/uL (0-0.2); Basophils % (auto) 1.3 % (0.0-2.0); Eosinophils # (auto) 0.2 10 ^3/uL (0-0.8); Eosinophils % (auto) 2.8 % (0.0-7.0); Hematocrit 33.4 % (36.0-46.0); Lymphocytes # (auto) 1.4 10 ^3/uL (0.4-5.4); Lymphocytes % (auto) 16.4 % (10.0-50.0); Mean Corpuscular Hemoglobin 29.7 pg (28.0-32.0); Mean Corpuscular Volume 90.2 fL (80.0-100.0); Monocytes # (auto) 0.5 10 ^3/uL (0-1.3); Monocytes % (auto) 5.3 % (0.0-12.0); Neutrophils # (auto) 6.4 10 ^3/uL (1.6-8.6); Neutrophils % (auto) 74.2 % (37.0-80.0); Platelet Count (auto) 333 10^3/uL (140-450); Red Cell Distribution Width 14.6 % (11.8-14.3); White Blood Cell 8.6 10^3/uL (4.4-10.8)
[2020-02-10 11:13] LABS: INR 1.01 (0.9-1.15)
[2020-02-10 11:24] LABS: Calcium 8.5 mg/dL (8.5-10.1); Potassium 3.6 mmol/L (3.5-5.1)
[2020-02-10 11:29] LABS: BUN/Creatinine Ratio 22.9; Bilirubin, Total 0.4 mg/dL (0.2-1.0)
== END | disposition home or self-care (01) ==
LOC: LAB 10:33
PROVIDERS: ATTEND Internal Medicine
DX: N18.4 Chronic kidney disease, stage 4 (severe) (principal)
CPT/HCPCS: 36415; 80053; 85025; 85610

== ENCOUNTER 2020-12-22 13:49 | Emergency (ER) | payer MEDICARE, OTHER ==
[~2020-12-22] VITALS: Ht 157.5 cm; Wt 72.6 kg
[2020-12-22 15:23] VITALS: BP 180/100
[2020-12-22] MEDS ORDERED: HYDROcodone-ACET 5/325MG TAB PO ONE (15:30)
== END 2020-12-22 17:05 | disposition home or self-care (01) ==
LOC: EDBD 13:49 → EDUNIT# 13:49 → ER 13:49
DX: S02.31XA Fracture of orbital floor, right side, initial encounter for closed fracture (principal); S01.81XA Laceration without foreign body of other part of head, initial encounter; S50.12XA Contusion of left forearm, initial encounter; I10 Essential (primary) hypertension; Z79.899 Other long term (current) drug therapy; Z88.2 Allergy status to sulfonamides; W01.0XXA Fall on same level from slipping, tripping and stumbling without subsequent striking against object, initial encounter; Y93.89 Activity, other specified; Y92.89 Other specified places as the place of occurrence of the external cause; Y99.8 Other external cause status
CPT/HCPCS: 12011; 70450; 70486

== ENCOUNTER → 2021-11-21 | Outpatient (CLI) | payer MEDICARE, OTHER ==
[2021-11-21 09:31] LABS: Basophils # (auto) 0.1 10 ^3/uL (0-0.2); Basophils % (auto) 0.9 % (0.0-2.0); Eosinophils # (auto) 0.4 10 ^3/uL (0-0.8); Eosinophils % (auto) 3.8 % (0.0-7.0); Hematocrit 32.4 % (36.0-46.0); Hemoglobin 10.7 g/dL (12.2-16.2); Lymphocytes % (auto) 18.4 % (10.0-50.0); Mean Corpuscular Hemoglobin 31.5 pg (28.0-32.0); Mean Corpuscular Hgb Conc. 33.1 g/dL (32.0-36.0); Mean Corpuscular Volume 95.3 fL (80.0-100.0); Monocytes # (auto) 0.7 10 ^3/uL (0-1.3); Monocytes % (auto) 6.2 % (0.0-12.0); Neutrophils # (auto) 7.7 10 ^3/uL (1.6-8.6); Neutrophils % (auto) 70.7 % (37.0-80.0); Nucleated Red Blood Cells % 0.1 %; Red Cell Distribution Width 14.2 % (11.8-14.3); White Blood Cell 10.9 10^3/uL (4.4-10.8)
[2021-11-21 09:43] LABS: Albumin 3.3 g/dL (3.4-5.0); BUN/Creatinine Ratio 8.1; Uric Acid 4.2 mg/dL (2.6-6.0)
[2021-11-21 09:48] LABS: Bilirubin, Total 0.4 mg/dL (0.2-1.0); Total Protein 7.6 g/dL (6.4-8.2)
[2021-11-21 09:54] LABS: Free T4 (Free Thyroxine) 1.12 ng/dL (0.89-1.76)
== END | disposition home or self-care (01) ==
LOC: LAB 08:41
PROVIDERS: ATTEND Internal Medicine
DX: E03.9 Hypothyroidism, unspecified (principal); I10 Essential (primary) hypertension
CPT/HCPCS: 36415; 80053; 80061; 82607; 83970; 84439; 84443; 84550; 85025; 85652

== ENCOUNTER 2022-05-17 08:37 | Inpatient (IN) | payer MEDICARE, OTHER ==
[~2022-05-17] VITALS: Ht 154.9 cm; Wt 59.0 kg
[2022-05-17] MEDS ORDERED: dilTIAZem 25 MG/5 ML VIAL IV ONE (09:00)
[2022-05-17 09:26] LABS: Hematocrit 32.4 % (36.0-46.0); Hemoglobin 10.6 g/dL (12.2-16.2); Mean Corpuscular Hemoglobin 32.3 pg (28.0-32.0); Mean Corpuscular Hgb Conc. 32.7 g/dL (32.0-36.0); Mean Corpuscular Volume 98.8 fL (80.0-100.0); Red Blood Cells 3.28 10^6/uL (4.0-5.20); White Blood Cell 17.3 10^3/uL (4.4-10.8)
[2022-05-17 09:33] LABS: Basophils % (manual) 0 (0.0-2.0); Blast Cells 0; Eosinophils % (manual) 0 (0-7); Metamyelocytes % 0; Myelocytes % 0; Promyelocytes % 0; Reactive Lymphocytes 0
[2022-05-17 09:39] LABS: BUN/Creatinine Ratio 8.3; Calcium 7.7 mg/dL (8.5-10.1); Magnesium 1.9 mg/dL (1.6-2.6); Potassium 3.4 mmol/L (3.5-5.1)
[2022-05-17 09:42] LABS: Bilirubin, Total 0.4 mg/dL (0.2-1.0); Total Protein 5.5 g/dL (6.4-8.2)
[2022-05-17 10:32] LABS: Lactic Acid w/Reflex 2.4 mmol/L (0.4-2.0)
[2022-05-17 11:22] LABS: Band Neutrophils % (manual) 31; Lymphocytes % (manual) 7 (10.0-50.0); Monocytes % (manual) 2 (0-12)
[2022-05-17] MEDS ORDERED: dilTIAZem 125mg/125ml BAG KIT 125 ML IV ONE (12:00)
[2022-05-17] MEDS ORDERED: PIPERACILLIN-TAZOB 3.375GM 100 ML IV ONE (12:30)
[2022-05-17] MEDS ORDERED: levoFLOXacin 500MG 100 ML IV ONE (12:30)
[2022-05-17] MEDS ORDERED: SODIUM CHLORIDE 0.9% 500 ML IV ONE (12:30)
[2022-05-17] MEDS ORDERED: dilTIAZem 25 MG/5 ML VIAL IV PRN (12:45)
[2022-05-17] MEDS ORDERED: DICLOFENAC SODIUM 1% TD PRN (14:00)
[2022-05-17] MEDS ORDERED: ACETAMINOPHEN 325 MG TAB PO PRN (14:00)
[2022-05-17] MEDS ORDERED: HYDROmorphone HCL 2 MG/ML VL/or syr IV PRN (14:00)
[2022-05-17] MEDS ORDERED: DOCUSATE SOD 100 MG CAP PO PRN (14:00)
[2022-05-17] MEDS ORDERED: ONDANSETRON HCL 4 MG/2 ML VIAL IV PRN (14:00)
[2022-05-17] MEDS: SODIUM CHLOR 0.9% PF (SALINE LOCK) 10ML VIAL/SYR IV SCH ×2 (14:25→22:24)
[2022-05-17] MEDS ORDERED: PANTOPRAZOLE 40 MG/10 ML VIAL INJ IV ONE (14:30)
[2022-05-17] MEDS ORDERED: dilTIAZem 125mg/125ml BAG KIT 125 ML IV SCH (15:30)
[2022-05-17] MEDS: dilTIAZem 125mg/125ml BAG KIT 100 ML IV SCH (15:57)
[2022-05-17] MEDS: FERROUS SULFATE 325mg EC TAB PO SCH (18:00)
[2022-05-17] MEDS ORDERED: LIDOCAINE 1% (LOCAL ANESTH.) PF 5ml SDV ID ONE (19:45)
[2022-05-17 20:02] VITALS: BP 96/39
[2022-05-17 20:42] VITALS: BP 102/42
[2022-05-17] MEDS ORDERED: SODIUM CHLOR 0.9% PF (SALINE LOCK) 10ML VIAL/SYR IV SCH (22:00)
[2022-05-17 22:41] VITALS: BP 97/67
[2022-05-17] MEDS: ATORVASTATIN 20 MG TAB PO SCH (23:13)
[2022-05-17] MEDS: MIRTAZAPINE 30 MG TAB PO SCH (23:14)
[2022-05-17] MEDS: METOPROLOL TARTRATE 25 MG TAB PO SCH (23:14)
[2022-05-17 23:32] VITALS: BP 94/52
[2022-05-18] MEDS: ZOLPIDEM TARTRATE 5 MG TAB PO PRN ×2 (01:54→21:24)
[2022-05-18 02:00] VITALS: BP 84/44
[2022-05-18 04:09] VITALS: BP 94/40
[2022-05-18] MEDS: dilTIAZem 125mg/125ml BAG KIT 100 ML IV SCH (05:00)
[2022-05-18] MEDS: SODIUM CHLOR 0.9% PF (SALINE LOCK) 10ML VIAL/SYR IV SCH ×3 (06:16→22:00)
[2022-05-18] MEDS: FERROUS SULFATE 325mg EC TAB PO SCH ×2 (08:27→18:56)
[2022-05-18] MEDS: METOPROLOL TARTRATE 25 MG TAB PO SCH (10:13)
[2022-05-18] MEDS: PANTOPRAZOLE 40 MG/10 ML VIAL INJ IV SCH (10:13)
[2022-05-18] MEDS: LEVOTHYROXINE SODIUM 25 MCG TAB PO SCH (10:14)
[2022-05-18 11:13] LABS: Hematocrit 28.3 % (36.0-46.0); Hemoglobin 9.5 g/dL (12.2-16.2); Mean Corpuscular Hemoglobin 33.4 pg (28.0-32.0); Mean Corpuscular Hgb Conc. 33.5 g/dL (32.0-36.0); Mean Corpuscular Volume 99.7 fL (80.0-100.0); Red Blood Cells 2.84 10^6/uL (4.0-5.20); Red Cell Distribution Width 14.1 % (11.8-14.3); White Blood Cell 20.5 10^3/uL (4.4-10.8)
[2022-05-18 11:20] LABS: Basophils % (manual) 0 (0.0-2.0); Blast Cells 0; Eosinophils % (manual) 0 (0-7); Metamyelocytes % 0; Promyelocytes % 0; Reactive Lymphocytes 0
[2022-05-18 11:30] LABS: Albumin 1.7 g/dL (3.4-5.0); BUN/Creatinine Ratio 9.1; Calcium 7.4 mg/dL (8.5-10.1); Magnesium 1.8 mg/dL (1.6-2.6); Potassium 3.4 mmol/L (3.5-5.1)
[2022-05-18 11:32] LABS: Bilirubin, Total 0.4 mg/dL (0.2-1.0); Total Protein 4.9 g/dL (6.4-8.2)
[2022-05-18 13:28] LABS: Band Neutrophils % (manual) 19; Lymphocytes % (manual) 6 (10.0-50.0); Monocytes % (manual) 4 (0-12); Myelocytes % 1
[2022-05-18] MEDS ORDERED: dilTIAZem HCL 180MG ER CAP PO ONE (14:00)
[2022-05-18] MEDS ORDERED: MAGNESIUM SULFATE 1GM/100ML 100 ML IV ONE (14:00)
[2022-05-18] MEDS ORDERED: ENOXAPARIN SOD 30 MG/0.3 ML SYRINGE SC ONE (14:00)
[2022-05-18] MEDS ORDERED: DIGOXIN (250MCG/ML) 2 ML AMPULE IV ONE (14:00)
[2022-05-18] MEDS ORDERED: POTASSIUM CHL 20 Meq TABLET PO ONE (14:00)
[2022-05-18] MEDS ORDERED: PERITONEAL DIALYSIS 2.5% SOLN 2,000 ML IP ONE (14:45)
[2022-05-18 20:30] VITALS: BP 83/41
[2022-05-18] MEDS ORDERED: SODIUM CHLORIDE 0.9% 500 ML IV ONE (22:15)
[2022-05-18 22:20] VITALS: BP 85/66
[2022-05-18] MEDS: ATORVASTATIN 20 MG TAB PO SCH (23:12)
[2022-05-18] MEDS: MIRTAZAPINE 30 MG TAB PO SCH (23:12)
[2022-05-19 00:10] VITALS: BP 90/34
[2022-05-19] MEDS ORDERED: NOREPINEPHRINE 8 MG/250ML KIT 250 ML IV SCH (00:45)
[2022-05-19 02:05] VITALS: BP 97/33
[2022-05-19 03:50] VITALS: BP 91/46
[2022-05-19 05:36] VITALS: BP 97/35
[2022-05-19] MEDS: SODIUM CHLOR 0.9% PF (SALINE LOCK) 10ML VIAL/SYR IV SCH ×3 (06:00→21:56)
[2022-05-19 06:45] LABS: Hematocrit 28.3 % (36.0-46.0); Hemoglobin 9.4 g/dL (12.2-16.2); Mean Corpuscular Hemoglobin 33.8 pg (28.0-32.0); Mean Corpuscular Hgb Conc. 33.3 g/dL (32.0-36.0); Mean Corpuscular Volume 101.4 fL (80.0-100.0); Red Blood Cells 2.79 10^6/uL (4.0-5.20); Red Cell Distribution Width 14.1 % (11.8-14.3); White Blood Cell 22.7 10^3/uL (4.4-10.8)
[2022-05-19 06:51] LABS: Basophils % (manual) 0 (0.0-2.0); Blast Cells 0; Eosinophils % (manual) 0 (0-7); Metamyelocytes % 0; Myelocytes % 0; Promyelocytes % 0; Reactive Lymphocytes 0
[2022-05-19 06:59] LABS: Potassium 3.9 mmol/L (3.5-5.1)
[2022-05-19 07:06] LABS: Albumin 1.6 g/dL (3.4-5.0); BUN/Creatinine Ratio 9.4; Bilirubin, Total 0.5 mg/dL (0.2-1.0); Calcium 7.8 mg/dL (8.5-10.1); Magnesium 2.1 mg/dL (1.6-2.6); Total Protein 5.6 g/dL (6.4-8.2)
[2022-05-19 09:40] LABS: Band Neutrophils % (manual) 19; Lymphocytes % (manual) 9 (10.0-50.0); Monocytes % (manual) 2 (0-12)
[2022-05-19] MEDS: dilTIAZem HCL 180MG ER CAP PO SCH (10:00)
[2022-05-19] MEDS: PANTOPRAZOLE 40 MG/10 ML VIAL INJ IV SCH (10:25)
[2022-05-19] MEDS: FERROUS SULFATE 325mg EC TAB PO SCH ×2 (10:25→19:45)
[2022-05-19] MEDS: LEVOTHYROXINE SODIUM 25 MCG TAB PO SCH (10:26)
[2022-05-19] MEDS: ENOXAPARIN SOD 30 MG/0.3 ML SYRINGE SC SCH (10:26)
[2022-05-19] MEDS ORDERED: BACITRACIN INJ 50000 UNIT VIAL TOP ONE (11:00)
[2022-05-19] MEDS: PIPERACILLIN-TAZOB 2.25GM 50 ML IV SCH ×2 (11:10→23:36)
[2022-05-19] MEDS ORDERED: NEOMYCIN-BACITRACIN-POLYM UNITDOSE PKG TOP OINT TOP ONE (11:15)
[2022-05-19] MEDS ORDERED: levoFLOXacin 250MG 50 ML IV SCH (12:00)
[2022-05-19] MEDS ORDERED: LORazepam 0.5 MG TAB PO ONE (14:00)
[2022-05-19 19:55] VITALS: BP 120/41
[2022-05-19] MEDS: ZOLPIDEM TARTRATE 5 MG TAB PO PRN ×2 (20:18→21:56)
[2022-05-19] MEDS: MIRTAZAPINE 30 MG TAB PO SCH (21:56)
[2022-05-19] MEDS: ATORVASTATIN 20 MG TAB PO SCH (21:56)
[2022-05-20] MEDS ORDERED: diphenhdrAMINE HCL 50 MG/1 ML VL IV ONE (01:45)
[2022-05-20 02:23] VITALS: BP 102/66
[2022-05-20 04:10] VITALS: BP 117/68
[2022-05-20] MEDS ORDERED: LACTATED RINGER'S 500 ML IV ONE (05:00)
[2022-05-20] MEDS ORDERED: LORazepam 2MG/ML-1ML VIAL IV ONE (05:00)
[2022-05-20] MEDS ORDERED: dilTIAZem 25 MG/5 ML VIAL IV ONE (05:00)
[2022-05-20] MEDS: SODIUM CHLOR 0.9% PF (SALINE LOCK) 10ML VIAL/SYR IV SCH ×3 (06:14→21:49)
[2022-05-20 06:23] LABS: Albumin 1.7 g/dL (3.4-5.0); Potassium 4.1 mmol/L (3.5-5.1)
[2022-05-20 06:27] LABS: BUN/Creatinine Ratio 8.7; Bilirubin, Total 0.5 mg/dL (0.2-1.0); Total Protein 5.6 g/dL (6.4-8.2)
[2022-05-20] MEDS ORDERED: LORazepam 2MG/ML-1ML VIAL ONE (07:28)
[2022-05-20] MEDS ORDERED: LORazepam 2MG/ML-1ML VIAL IV PRN (07:30)
[2022-05-20 07:48] LABS: Basophils # (auto) 0 10 ^3/uL (0-0.2); Basophils % (auto) 0.2 % (0.0-2.0); Eosinophils # (auto) 0.1 10 ^3/uL (0-0.8); Eosinophils % (auto) 0.4 % (0.0-7.0); Hematocrit 28.3 % (36.0-46.0); Hemoglobin 9.4 g/dL (12.2-16.2); Lymphocytes # (auto) 1.1 10 ^3/uL (0.4-5.4); Lymphocytes % (auto) 5.9 % (10.0-50.0); Mean Corpuscular Hemoglobin 32.8 pg (28.0-32.0); Mean Corpuscular Hgb Conc. 33.3 g/dL (32.0-36.0); Mean Corpuscular Volume 98.5 fL (80.0-100.0); Monocytes # (auto) 0.6 10 ^3/uL (0-1.3); Monocytes % (auto) 2.9 % (0.0-12.0); Neutrophils # (auto) 17.4 10 ^3/uL (1.6-8.6); Neutrophils % (auto) 90.6 % (37.0-80.0); Red Blood Cells 2.88 10^6/uL (4.0-5.20); Red Cell Distribution Width 14.1 % (11.8-14.3); White Blood Cell 19.2 10^3/uL (4.4-10.8)
[2022-05-20] MEDS ORDERED: NOREPINEPHRINE BITARTRATE 16 MG in SODIUM CHL 0.9% 234 ML IV SCH (08:15)
[2022-05-20] MEDS: ENOXAPARIN SOD 30 MG/0.3 ML SYRINGE SC SCH (08:28)
[2022-05-20] MEDS: PANTOPRAZOLE 40 MG/10 ML VIAL INJ IV SCH (08:28)
[2022-05-20] MEDS: FERROUS SULFATE 325mg EC TAB PO SCH ×2 (08:28→18:00)
[2022-05-20] MEDS: dilTIAZem HCL 180MG ER CAP PO SCH (08:29)
[2022-05-20] MEDS: LEVOTHYROXINE SODIUM 25 MCG TAB PO SCH (10:33)
[2022-05-20] MEDS: PIPERACILLIN-TAZOB 2.25GM 50 ML IV SCH ×2 (10:38→22:57)
[2022-05-20] MEDS ORDERED: SODIUM CHLORIDE 0.9% 1,000 ML IV SCH (12:00)
[2022-05-20] MEDS ORDERED: VANCOMYCIN PER PHARMACY 0 MG IV SCH (12:00)
[2022-05-20] MEDS ORDERED: AMIODARONE HCL 150 MG in D5W 5% 100 ML IV ONE ×4 (12:00)
[2022-05-20] MEDS ORDERED: AMIODARONE 450mg/250ml AE 250 ML IV SCH ×4 (12:00→18:15)
[2022-05-20] MEDS ORDERED: VANCOMYCIN 1GM/250ML 250 ML IV ONE (13:00)
[2022-05-20 13:15] LABS: INR 1.12 (0.9-1.15); Partial Thromboplastin Time 33.6 sec (24.6-33.4)
[2022-05-20] MEDS ORDERED: DIGOXIN (250MCG/ML) 2 ML AMPULE IV ONE (14:15)
[2022-05-20 15:02] LABS: Urine Bacteria FEW /hpf (None Seen); Urine Blood Negative /uL (Negative); Urine Specific Gravity 1.017 (1.001-1.035); Urine WBC 3 /hpf (0 - 5)
[2022-05-20] MEDS ORDERED: BUMETANIDE 2.5mg/10ml (0.25 mg/ml) INJ IV ONE (16:15)
[2022-05-20 16:28] VITALS: BP 128/56
[2022-05-20 18:36] VITALS: BP 115/61
[2022-05-20] MEDS: PERITONEAL DIALYSIS 2.5% SOLN 2,000 ML IP SCH ×2 (18:57→21:39)
[2022-05-20 20:33] VITALS: BP 86/65
[2022-05-20] MEDS: MIRTAZAPINE 30 MG TAB PO SCH ×2 (21:48→22:25)
[2022-05-20] MEDS: ATORVASTATIN 20 MG TAB PO SCH ×2 (21:48→22:25)
[2022-05-20 22:24] VITALS: BP 135/65
[2022-05-21 00:44] VITALS: BP 143/59
[2022-05-21 00:48] VITALS: BP 143/59
[2022-05-21] MEDS: PERITONEAL DIALYSIS 2.5% SOLN 2,000 ML IP SCH ×4 (02:00→14:00)
[2022-05-21 02:22] VITALS: BP 136/63
[2022-05-21 04:16] VITALS: BP 131/69
[2022-05-21] MEDS: SODIUM CHLOR 0.9% PF (SALINE LOCK) 10ML VIAL/SYR IV SCH ×3 (05:47→22:42)
[2022-05-21] MEDS: BUMETANIDE 2.5mg/10ml (0.25 mg/ml) INJ IV SCH ×2 (05:48→17:20)
[2022-05-21 06:08] LABS: Hemoglobin 9.1 g/dL (12.2-16.2)
[2022-05-21 06:11] LABS: Hematocrit 27.9 % (36.0-46.0); Mean Corpuscular Hemoglobin 32.9 pg (28.0-32.0); Mean Corpuscular Hgb Conc. 32.7 g/dL (32.0-36.0); Mean Corpuscular Volume 100.6 fL (80.0-100.0); Red Blood Cells 2.77 10^6/uL (4.0-5.20); Red Cell Distribution Width 14.3 % (11.8-14.3); White Blood Cell 20.7 10^3/uL (4.4-10.8)
[2022-05-21 06:12] LABS: Basophils % (manual) 0 (0.0-2.0); Blast Cells 0; Eosinophils % (manual) 0 (0-7); Metamyelocytes % 0; Monocytes % (manual) 0 (0-12); Promyelocytes % 0; Reactive Lymphocytes 0
[2022-05-21 06:22] VITALS: BP 134/49
[2022-05-21 06:26] LABS: Potassium 4.7 mmol/L (3.5-5.1)
[2022-05-21 06:31] LABS: Albumin 1.8 g/dL (3.4-5.0); BUN/Creatinine Ratio 9.3; Bilirubin, Total 0.4 mg/dL (0.2-1.0); Total Protein 5.9 g/dL (6.4-8.2)
[2022-05-21 08:24] VITALS: BP 125/58
[2022-05-21 09:12] LABS: Band Neutrophils % (manual) 6; Lymphocytes % (manual) 6 (10.0-50.0); Myelocytes % 1
[2022-05-21] MEDS: ENOXAPARIN SOD 30 MG/0.3 ML SYRINGE SC SCH (10:00)
[2022-05-21] MEDS: PANTOPRAZOLE 40 MG/10 ML VIAL INJ IV SCH (10:00)
[2022-05-21] MEDS: dilTIAZem HCL 180MG ER CAP PO SCH (10:01)
[2022-05-21] MEDS: PIPERACILLIN-TAZOB 2.25GM 50 ML IV SCH ×2 (10:03→22:32)
[2022-05-21] MEDS: LEVOTHYROXINE SODIUM 25 MCG TAB PO SCH (10:16)
[2022-05-21] MEDS: FERROUS SULFATE 325mg EC TAB PO SCH ×2 (11:31→17:22)
[2022-05-21] MEDS ORDERED: VANCOMYCIN 1GM/250ML 250 ML IV ONE (18:00)
[2022-05-21] MEDS: HYDROcodone-ACET 5/325MG TAB PO PRN (20:12)
[2022-05-21] MEDS ORDERED: EPOETIN ALFA-EPBX 4,000 UNIT/ML VIAL SC ONE (21:00)
[2022-05-21] MEDS: MIRTAZAPINE 30 MG TAB PO SCH (22:37)
[2022-05-21] MEDS: ATORVASTATIN 20 MG TAB PO SCH (22:37)
[2022-05-22] VITALS (8 sets, daily range): BP systolic 103–134; BP diastolic 33–64
[2022-05-22] MEDS: ZOLPIDEM TARTRATE 5 MG TAB PO PRN (02:30)
[2022-05-22] MEDS: SODIUM CHLOR 0.9% PF (SALINE LOCK) 10ML VIAL/SYR IV SCH ×3 (06:00→22:53)
[2022-05-22] MEDS: BUMETANIDE 2.5mg/10ml (0.25 mg/ml) INJ IV SCH ×2 (06:00→18:14)
[2022-05-22] MEDS ORDERED: ALBUMIN 25% 50 ML IV ONE (06:30)
[2022-05-22 06:32] LABS: Hematocrit 24.9 % (36.0-46.0); Hemoglobin 8.6 g/dL (12.2-16.2); Mean Corpuscular Hemoglobin 33.9 pg (28.0-32.0); Mean Corpuscular Hgb Conc. 34.4 g/dL (32.0-36.0); Mean Corpuscular Volume 98.5 fL (80.0-100.0); Red Blood Cells 2.53 10^6/uL (4.0-5.20); Red Cell Distribution Width 14.4 % (11.8-14.3); White Blood Cell 21.6 10^3/uL (4.4-10.8)
[2022-05-22 06:44] LABS: Basophils % (manual) 0 (0.0-2.0); Blast Cells 0; Eosinophils % (manual) 0 (0-7); Metamyelocytes % 0; Monocytes % (manual) 0 (0-12); Myelocytes % 0; Promyelocytes % 0; Reactive Lymphocytes 0
[2022-05-22 06:51] LABS: Potassium 3.8 mmol/L (3.5-5.1)
[2022-05-22 07:01] LABS: Albumin 1.9 g/dL (3.4-5.0); BUN/Creatinine Ratio 9.6; Bilirubin, Total 0.4 mg/dL (0.2-1.0); Total Protein 4.9 g/dL (6.4-8.2)
[2022-05-22] MEDS: FERROUS SULFATE 325mg EC TAB PO SCH ×2 (08:00→18:14)
[2022-05-22 08:04] LABS: Band Neutrophils % (manual) 3; Lymphocytes % (manual) 2 (10.0-50.0)
[2022-05-22] MEDS ORDERED: PIPERACILLIN-TAZOB 2.25GM 50 ML IV SCH (09:00)
[2022-05-22] MEDS: ENOXAPARIN SOD 30 MG/0.3 ML SYRINGE SC SCH (10:00)
[2022-05-22] MEDS ORDERED: DIGOXIN (250MCG/ML) 2 ML AMPULE IV SCH (10:00)
[2022-05-22] MEDS: PANTOPRAZOLE 40 MG/10 ML VIAL INJ IV SCH (10:00)
[2022-05-22] MEDS: AMIODARONE HCL 200 MG TAB PO SCH ×2 (10:00→22:54)
[2022-05-22] MEDS: dilTIAZem HCL 180MG ER CAP PO SCH (10:00)
[2022-05-22] MEDS: LEVOTHYROXINE SODIUM 25 MCG TAB PO SCH (10:00)
[2022-05-22] MEDS: LACTULOSE 20Gm/30ML SOLN PO SCH ×2 (17:11→22:00)
[2022-05-22] MEDS: Ensure HIGH Protein Chocolate 8oz Bottle PO SCH (18:00)
[2022-05-22] MEDS: HYDROcodone-ACET 5/325MG TAB PO PRN (18:14)
[2022-05-22] MEDS ORDERED: SODIUM CHLORIDE 0.9% 1,000 ML IV SCH (20:30)
[2022-05-22] MEDS ORDERED: IPRATROPIUM BROM 0.5 MG/2.5ML INH SOL NEB ONE (20:30)
[2022-05-22] MEDS ORDERED: ALBUTEROL SULF 2.5 MG/0.5ML(0.5%) NEB SOLN NEB ONE (20:30)
[2022-05-22] MEDS ORDERED: DEXTROSE (50%) 50ML SYRG IV PRN (20:30)
[2022-05-22] MEDS ORDERED: InsuLIN R (HUMAN) 100 UNITS in SODIUM CHL 0.9% 99 ML IV SCH (20:30)
[2022-05-22] MEDS ORDERED: FUROSEMIDE 20 MG/2 ML VIAL IV ONE (20:30)
[2022-05-22] MEDS ORDERED: ACCU-CHEK COMFORT CURVE STRIP VI SCH (21:00)
[2022-05-22] MEDS ORDERED: EPOETIN ALFA-EPBX 4,000 UNIT/ML VIAL SC ONE (21:00)
[2022-05-22] MEDS ORDERED: AMIODARONE HCL 200 MG TAB ONE (22:51)
[2022-05-22] MEDS ORDERED: MIRTAZAPINE 30 MG TAB ONE (22:52)
[2022-05-22] MEDS ORDERED: ATORVASTATIN 20 MG TAB ONE (22:52)
[2022-05-22] MEDS: ATORVASTATIN 20 MG TAB PO SCH (22:54)
[2022-05-22] MEDS: MIRTAZAPINE 30 MG TAB PO SCH (22:54)
[2022-05-23] VITALS (7 sets, daily range): BP systolic 93–137; BP diastolic 49–67
[2022-05-23] MEDS: BUMETANIDE 2.5mg/10ml (0.25 mg/ml) INJ IV SCH ×2 (06:00→17:38)
[2022-05-23] MEDS: SODIUM CHLOR 0.9% PF (SALINE LOCK) 10ML VIAL/SYR IV SCH ×3 (06:12→22:16)
[2022-05-23 06:36] LABS: Albumin 1.8 g/dL (3.4-5.0); Calcium 8.1 mg/dL (8.5-10.1); Potassium 4.3 mmol/L (3.5-5.1)
[2022-05-23 06:38] LABS: BUN/Creatinine Ratio 8.8
[2022-05-23 06:42] LABS: Hematocrit 25.7 % (36.0-46.0); Hemoglobin 8.7 g/dL (12.2-16.2); Mean Corpuscular Hemoglobin 33.6 pg (28.0-32.0); Mean Corpuscular Hgb Conc. 33.7 g/dL (32.0-36.0); Mean Corpuscular Volume 99.7 fL (80.0-100.0); Red Blood Cells 2.58 10^6/uL (4.0-5.20); Red Cell Distribution Width 14.2 % (11.8-14.3); White Blood Cell 21.6 10^3/uL (4.4-10.8)
[2022-05-23 06:48] LABS: Basophils % (manual) 0 (0.0-2.0); Blast Cells 0; Eosinophils % (manual) 0 (0-7); Metamyelocytes % 0; Promyelocytes % 0; Reactive Lymphocytes 0
[2022-05-23 06:59] LABS: Bilirubin, Total 0.3 mg/dL (0.2-1.0); Total Protein 5.4 g/dL (6.4-8.2)
[2022-05-23] MEDS: Ensure HIGH Protein Chocolate 8oz Bottle PO SCH ×3 (08:00→18:57)
[2022-05-23 08:20] LABS: Band Neutrophils % (manual) 3; Lymphocytes % (manual) 7 (10.0-50.0); Monocytes % (manual) 2 (0-12); Myelocytes % 1
[2022-05-23] MEDS ORDERED: cefTRIAXone 1GM/50ML D5W 50 ML IV SCH (09:00)
[2022-05-23] MEDS: FERROUS SULFATE 325mg EC TAB PO SCH ×2 (10:53→18:57)
[2022-05-23] MEDS: AMIODARONE HCL 200 MG TAB PO SCH ×2 (10:54→21:09)
[2022-05-23] MEDS: LACTULOSE 20Gm/30ML SOLN PO SCH ×2 (12:53→22:00)
[2022-05-23] MEDS: CEFTRIAXONE SODIUM 2 GM in D5W 5% 50 ML IV SCH (12:53)
[2022-05-23] MEDS: ENOXAPARIN SOD 30 MG/0.3 ML SYRINGE SC SCH (12:53)
[2022-05-23] MEDS: PANTOPRAZOLE 40 MG/10 ML VIAL INJ IV SCH (13:00)
[2022-05-23] MEDS: dilTIAZem HCL 180MG ER CAP PO SCH (17:36)
[2022-05-23] MEDS: LEVOTHYROXINE SODIUM 25 MCG TAB PO SCH (17:37)
[2022-05-23] MEDS: HYDROcodone-ACET 5/325MG TAB PO PRN (18:57)
[2022-05-23] MEDS ORDERED: EPOETIN ALFA-EPBX 10,000 UNIT/1ML VIAL SC ONE (21:00)
[2022-05-23] MEDS: ATORVASTATIN 20 MG TAB PO SCH (21:08)
[2022-05-23] MEDS: MIRTAZAPINE 30 MG TAB PO SCH (21:09)
[2022-05-24] VITALS (8 sets, daily range): BP systolic 107–146; BP diastolic 51–85
[2022-05-24] MEDS: BUMETANIDE 2.5mg/10ml (0.25 mg/ml) INJ IV SCH ×2 (06:00→18:14)
[2022-05-24] MEDS ORDERED: HEPARIN SODIUM (PORCINE) 5000 UNITS/ML 1ML VIAL ONE (06:25)
[2022-05-24] MEDS: SODIUM CHLOR 0.9% PF (SALINE LOCK) 10ML VIAL/SYR IV SCH ×3 (06:38→22:53)
[2022-05-24 07:00] LABS: BUN/Creatinine Ratio 9.3; Calcium 7.6 mg/dL (8.5-10.1); Potassium 4.2 mmol/L (3.5-5.1)
[2022-05-24 08:15] LABS: Hematocrit 38.9 % (36.0-46.0); Hemoglobin 12.6 g/dL (12.2-16.2); Mean Corpuscular Hemoglobin 32.8 pg (28.0-32.0); Mean Corpuscular Hgb Conc. 32.4 g/dL (32.0-36.0); Mean Corpuscular Volume 101.3 fL (80.0-100.0); Red Blood Cells 3.84 10^6/uL (4.0-5.20); Red Cell Distribution Width 14.3 % (11.8-14.3); White Blood Cell 18.6 10^3/uL (4.4-10.8)
[2022-05-24 08:17] LABS: Basophils % (manual) 0 (0.0-2.0); Blast Cells 0; Eosinophils % (manual) 0 (0-7); Metamyelocytes % 0; Myelocytes % 0; Promyelocytes % 0; Reactive Lymphocytes 0
[2022-05-24] MEDS ORDERED: SODIUM CHL 0.9% 1000 ML BAG XX ONE (09:15)
[2022-05-24] MEDS: PANTOPRAZOLE 40 MG/10 ML VIAL INJ IV SCH (10:04)
[2022-05-24] MEDS: CEFTRIAXONE SODIUM 2 GM in D5W 5% 50 ML IV SCH (10:05)
[2022-05-24] MEDS: Ensure HIGH Protein Chocolate 8oz Bottle PO SCH ×3 (10:05→18:14)
[2022-05-24] MEDS: LEVOTHYROXINE SODIUM 25 MCG TAB PO SCH (10:05)
[2022-05-24] MEDS: FERROUS SULFATE 325mg EC TAB PO SCH ×2 (10:05→18:14)
[2022-05-24] MEDS: HYDROcodone-ACET 5/325MG TAB PO PRN ×2 (10:06→18:21)
[2022-05-24] MEDS: dilTIAZem HCL 180MG ER CAP PO SCH (10:07)
[2022-05-24] MEDS: AMIODARONE HCL 200 MG TAB PO SCH ×2 (10:07→22:52)
[2022-05-24] MEDS: LACTULOSE 20Gm/30ML SOLN PO SCH ×2 (10:08→22:00)
[2022-05-24] MEDS: ENOXAPARIN SOD 30 MG/0.3 ML SYRINGE SC SCH (10:08)
[2022-05-24 12:31] LABS: Band Neutrophils % (manual) 28; Lymphocytes % (manual) 6 (10.0-50.0); Monocytes % (manual) 4 (0-12)
[2022-05-24] MEDS ORDERED: EPOETIN ALFA-EPBX 10,000 UNIT/1ML VIAL SC ONE (21:00)
[2022-05-24] MEDS: ATORVASTATIN 20 MG TAB PO SCH (22:52)
[2022-05-24] MEDS: MIRTAZAPINE 30 MG TAB PO SCH (22:52)
[2022-05-25 05:00] VITALS: BP 129/43
[2022-05-25] MEDS: BUMETANIDE 2.5mg/10ml (0.25 mg/ml) INJ IV SCH ×2 (07:05→17:51)
[2022-05-25] MEDS: SODIUM CHLOR 0.9% PF (SALINE LOCK) 10ML VIAL/SYR IV SCH ×3 (07:59→22:07)
[2022-05-25] MEDS: Ensure HIGH Protein Chocolate 8oz Bottle PO SCH ×3 (08:00→17:49)
[2022-05-25] MEDS: FERROUS SULFATE 325mg EC TAB PO SCH ×3 (08:00→17:49)
[2022-05-25] MEDS: LACTULOSE 20Gm/30ML SOLN PO SCH (08:17)
[2022-05-25] MEDS: ENOXAPARIN SOD 30 MG/0.3 ML SYRINGE SC SCH (08:19)
[2022-05-25] MEDS: LEVOTHYROXINE SODIUM 25 MCG TAB PO SCH (08:41)
[2022-05-25] MEDS: PANTOPRAZOLE 40 MG/10 ML VIAL INJ IV SCH (08:41)
[2022-05-25] MEDS: AMIODARONE HCL 200 MG TAB PO SCH ×2 (08:42→22:07)
[2022-05-25] MEDS: dilTIAZem HCL 180MG ER CAP PO SCH (08:42)
[2022-05-25 08:46] LABS: Potassium 4.1 mmol/L (3.5-5.1)
[2022-05-25 09:06] LABS: BUN/Creatinine Ratio 7.6; Calcium 7.9 mg/dL (8.5-10.1)
[2022-05-25 09:07] VITALS: BP 139/43
[2022-05-25] MEDS ORDERED: BUPIVACAINE 0.5% P/F INJ 10 ML VIAL ONE (09:29)
[2022-05-25] MEDS ORDERED: LIDOCAINE 1%HCL (LOCAL ANESTH) 10 ML MDV ONE (09:29)
[2022-05-25] MEDS: CEFTRIAXONE SODIUM 2 GM in D5W 5% 50 ML IV SCH (11:51)
[2022-05-25 13:02] VITALS: BP 144/48
[2022-05-25] MEDS: HYDROcodone-ACET 5/325MG TAB PO PRN ×2 (14:54→23:40)
[2022-05-25 16:49] VITALS: BP 123/55
[2022-05-25 22:00] VITALS: BP 131/76
[2022-05-25] MEDS: ATORVASTATIN 20 MG TAB PO SCH (22:07)
[2022-05-25] MEDS: MIRTAZAPINE 30 MG TAB PO SCH (22:07)
[2022-05-26 05:00] VITALS: BP 122/44
[2022-05-26] MEDS: SODIUM CHLOR 0.9% PF (SALINE LOCK) 10ML VIAL/SYR IV SCH ×3 (05:52→22:00)
[2022-05-26] MEDS: BUMETANIDE 2.5mg/10ml (0.25 mg/ml) INJ IV SCH ×2 (05:52→17:45)
[2022-05-26 06:24] LABS: Hemoglobin 9.4 g/dL (12.2-16.2); Mean Corpuscular Hemoglobin 31.8 pg (28.0-32.0); Mean Corpuscular Hgb Conc. 31.5 g/dL (32.0-36.0); Red Blood Cells 2.97 10^6/uL (4.0-5.20); Red Cell Distribution Width 14.7 % (11.8-14.3); White Blood Cell 18.1 10^3/uL (4.4-10.8)
[2022-05-26 06:40] LABS: Calcium 8.2 mg/dL (8.5-10.1); Potassium 4.2 mmol/L (3.5-5.1)
[2022-05-26 06:45] LABS: Basophils % (manual) 0 (0.0-2.0); Blast Cells 0; Eosinophils % (manual) 0 (0-7); Metamyelocytes % 0; Myelocytes % 0; Promyelocytes % 0; Reactive Lymphocytes 0
[2022-05-26] MEDS ORDERED: ALBUTEROL MEDNEB 2.5 mg/3ml NEB ONE (06:45)
[2022-05-26 08:03] VITALS: BP 142/50
[2022-05-26 08:28] LABS: Band Neutrophils % (manual) 8; Lymphocytes % (manual) 5 (10.0-50.0); Monocytes % (manual) 4 (0-12)
[2022-05-26] MEDS: IPRATROPIUM BROM 0.5 MG/2.5ML INH SOL NEB PRN (08:59)
[2022-05-26] MEDS: ALBUTEROL SULF 2.5 MG/0.5ML(0.5%) NEB SOLN NEB PRN (08:59)
[2022-05-26] MEDS: ENOXAPARIN SOD 30 MG/0.3 ML SYRINGE SC SCH (09:32)
[2022-05-26] MEDS: PANTOPRAZOLE 40 MG/10 ML VIAL INJ IV SCH ×2 (09:32→22:00)
[2022-05-26] MEDS: LEVOTHYROXINE SODIUM 25 MCG TAB PO SCH (09:33)
[2022-05-26] MEDS: AMIODARONE HCL 200 MG TAB PO SCH ×2 (09:34→21:59)
[2022-05-26] MEDS: FERROUS SULFATE 325mg EC TAB PO SCH ×2 (09:34→17:45)
[2022-05-26] MEDS: dilTIAZem HCL 180MG ER CAP PO SCH (09:34)
[2022-05-26] MEDS: CEFTRIAXONE SODIUM 2 GM in D5W 5% 50 ML IV SCH (09:34)
[2022-05-26] MEDS: Ensure HIGH Protein Chocolate 8oz Bottle PO SCH ×3 (09:35→17:45)
[2022-05-26] MEDS: HYDROcodone-ACET 5/325MG TAB PO PRN ×3 (10:32→21:59)
[2022-05-26 12:33] VITALS: BP 120/57
[2022-05-26] MEDS ORDERED: MILK OF MAGNESIA 30ML SUSP PO PRN (14:00)
[2022-05-26 16:29] VITALS: BP 137/58
[2022-05-26] MEDS ORDERED: THROAT LOZENGES(CEPASTAT) MT PRN (18:15)
[2022-05-26] MEDS: MIRTAZAPINE 30 MG TAB PO SCH (21:59)
[2022-05-26 22:00] VITALS: BP 136/52
[2022-05-26] MEDS: ATORVASTATIN 20 MG TAB PO SCH (22:00)
[2022-05-27 01:36] VITALS: BP 136/52
[2022-05-27 05:00] VITALS: BP_SYST 129; BP_SYST 138; BP_DIAS 42; BP_DIAS 55
[2022-05-27] MEDS: BUMETANIDE 2.5mg/10ml (0.25 mg/ml) INJ IV SCH ×2 (05:58→17:38)
[2022-05-27] MEDS: SODIUM CHLOR 0.9% PF (SALINE LOCK) 10ML VIAL/SYR IV SCH ×3 (05:58→21:52)
[2022-05-27] MEDS: HYDROcodone-ACET 5/325MG TAB PO PRN ×4 (05:59→21:52)
[2022-05-27 06:04] LABS: Basophils # (auto) 0 10 ^3/uL (0-0.2); Basophils % (auto) 0.2 % (0.0-2.0); Eosinophils # (auto) 0.1 10 ^3/uL (0-0.8); Monocytes # (auto) 0.6 10 ^3/uL (0-1.3); Nucleated Red Blood Cells % 0.1 %; Red Blood Cells 2.91 10^6/uL (4.0-5.20); White Blood Cell 16.6 10^3/uL (4.4-10.8)
[2022-05-27 06:08] LABS: Eosinophils % (auto) 0.9 % (0.0-7.0); Hemoglobin 9.3 g/dL (12.2-16.2); Lymphocytes # (auto) 0.8 10 ^3/uL (0.4-5.4); Lymphocytes % (auto) 4.9 % (10.0-50.0); Mean Corpuscular Hgb Conc. 31.1 g/dL (32.0-36.0); Mean Corpuscular Volume 103.2 fL (80.0-100.0); Monocytes % (auto) 3.9 % (0.0-12.0); Neutrophils # (auto) 14.9 10 ^3/uL (1.6-8.6); Neutrophils % (auto) 90.1 % (37.0-80.0); Red Cell Distribution Width 15.4 % (11.8-14.3)
[2022-05-27 06:27] LABS: Potassium 4.3 mmol/L (3.5-5.1)
[2022-05-27 06:36] LABS: Calcium 8.3 mg/dL (8.5-10.1)
[2022-05-27 06:56] LABS: BUN/Creatinine Ratio 8.4
[2022-05-27] MEDS ORDERED: SODIUM CHL 0.9% 1000 ML BAG XX ONE ×2 (07:00)
[2022-05-27 07:55] VITALS: BP 153/68
[2022-05-27] MEDS ORDERED: IPRATROPIUM BROM 0.5 MG/2.5ML INH SOL ONE (08:07)
[2022-05-27] MEDS ORDERED: ALBUTEROL MEDNEB 2.5 mg/3ml NEB ONE ×2 (08:07→14:17)
[2022-05-27] MEDS: ALBUTEROL SULF 2.5 MG/0.5ML(0.5%) NEB SOLN NEB PRN ×2 (08:50→15:55)
[2022-05-27] MEDS: Ensure HIGH Protein Chocolate 8oz Bottle PO SCH ×3 (09:33→17:38)
[2022-05-27] MEDS: PANTOPRAZOLE 40 MG/10 ML VIAL INJ IV SCH ×2 (10:41→21:52)
[2022-05-27] MEDS: ENOXAPARIN SOD 30 MG/0.3 ML SYRINGE SC SCH (10:41)
[2022-05-27] MEDS: dilTIAZem HCL 180MG ER CAP PO SCH (10:42)
[2022-05-27] MEDS: FERROUS SULFATE 325mg EC TAB PO SCH ×2 (10:42→17:38)
[2022-05-27] MEDS: LEVOTHYROXINE SODIUM 25 MCG TAB PO SCH (10:43)
[2022-05-27] MEDS: AMIODARONE HCL 200 MG TAB PO SCH ×2 (10:43→21:52)
[2022-05-27] MEDS: CEFTRIAXONE SODIUM 2 GM in D5W 5% 50 ML IV SCH (10:48)
[2022-05-27 12:45] VITALS: BP 131/68
[2022-05-27] MEDS: IPRATROPIUM BROM 0.5 MG/2.5ML INH SOL NEB PRN (15:55)
[2022-05-27 16:35] VITALS: BP 131/43
[2022-05-27] MEDS ORDERED: EPOETIN ALFA-EPBX 10,000 UNIT/1ML VIAL SC ONE ×2 (21:00)
[2022-05-27] MEDS: ATORVASTATIN 20 MG TAB PO SCH (21:52)
[2022-05-27] MEDS: MIRTAZAPINE 30 MG TAB PO SCH (21:52)
[2022-05-27 22:00] VITALS: BP 148/51
[2022-05-28] VITALS (9 sets, daily range): BP systolic 120–143; BP diastolic 36–58
[2022-05-28] MEDS: SODIUM CHLOR 0.9% PF (SALINE LOCK) 10ML VIAL/SYR IV SCH ×3 (05:55→21:34)
[2022-05-28] MEDS: BUMETANIDE 2.5mg/10ml (0.25 mg/ml) INJ IV SCH ×2 (05:55→17:33)
[2022-05-28 06:23] LABS: Basophils # (auto) 0.1 10 ^3/uL (0-0.2); Eosinophils # (auto) 0.2 10 ^3/uL (0-0.8); Hemoglobin 9.4 g/dL (12.2-16.2); White Blood Cell 14.8 10^3/uL (4.4-10.8)
[2022-05-28 06:24] LABS: Basophils % (auto) 0.6 % (0.0-2.0); Eosinophils % (auto) 1.4 % (0.0-7.0); Mean Corpuscular Hemoglobin 31.9 pg (28.0-32.0); Mean Corpuscular Hgb Conc. 31.2 g/dL (32.0-36.0); Mean Corpuscular Volume 102.2 fL (80.0-100.0); Monocytes # (auto) 0.7 10 ^3/uL (0-1.3); Monocytes % (auto) 4.4 % (0.0-12.0); Neutrophils # (auto) 12.8 10 ^3/uL (1.6-8.6); Neutrophils % (auto) 86.6 % (37.0-80.0); Red Blood Cells 2.94 10^6/uL (4.0-5.20); Red Cell Distribution Width 15.2 % (11.8-14.3)
[2022-05-28 06:25] LABS: INR 1.37 (0.9-1.15)
[2022-05-28] MEDS: Ensure HIGH Protein Chocolate 8oz Bottle PO SCH ×3 (08:00→17:08)
[2022-05-28] MEDS: FERROUS SULFATE 325mg EC TAB PO SCH ×2 (08:00→17:31)
[2022-05-28] MEDS ORDERED: fentaNYL CITRATE 100 MCG/2 ML VL ONE (08:48)
[2022-05-28] MEDS ORDERED: HEPARIN SODIUM (PORCINE) 5000 UNITS/ML 1ML VIAL ONE (08:48)
[2022-05-28] MEDS ORDERED: MIDAZOLAM HCL 2MG/2ML 2ml VIAL (1mg/ml) ONE (08:49)
[2022-05-28] MEDS ORDERED: LIDOCAINE 2%HCL (LOCAL ANESTH.) INJ 10ml MDV ONE (08:58)
[2022-05-28] MEDS: ENOXAPARIN SOD 30 MG/0.3 ML SYRINGE SC SCH (10:00)
[2022-05-28] MEDS: AMIODARONE HCL 200 MG TAB PO SCH (10:26)
[2022-05-28] MEDS: LEVOTHYROXINE SODIUM 25 MCG TAB PO SCH (10:26)
[2022-05-28] MEDS: CEFTRIAXONE SODIUM 2 GM in D5W 5% 50 ML IV SCH (10:26)
[2022-05-28] MEDS: PANTOPRAZOLE 40 MG/10 ML VIAL INJ IV SCH ×2 (10:26→20:41)
[2022-05-28] MEDS: dilTIAZem HCL 180MG ER CAP PO SCH (10:34)
[2022-05-28] MEDS ORDERED: SODIUM CHL 0.9% 1000 ML BAG XX ONE (13:00)
[2022-05-28] MEDS: Pro-Stat SF 30ml Vanilla PO SCH (17:08)
[2022-05-28] MEDS: HYDROcodone-ACET 5/325MG TAB PO PRN (18:35)
[2022-05-28] MEDS ORDERED: EPOETIN ALFA-EPBX 10,000 UNIT/1ML VIAL SC ONE (21:00)
[2022-05-28] MEDS: MIRTAZAPINE 30 MG TAB PO SCH (21:34)
[2022-05-28] MEDS: ATORVASTATIN 20 MG TAB PO SCH (21:34)
[2022-05-29] VITALS (9 sets, daily range): BP systolic 107–150; BP diastolic 33–87
[2022-05-29] MEDS: SODIUM CHLOR 0.9% PF (SALINE LOCK) 10ML VIAL/SYR IV SCH ×3 (05:34→22:14)
[2022-05-29] MEDS: BUMETANIDE 2.5mg/10ml (0.25 mg/ml) INJ IV SCH ×2 (06:00→18:00)
[2022-05-29 06:45] LABS: Basophils # (auto) 0.1 10 ^3/uL (0-0.2); Basophils % (auto) 0.5 % (0.0-2.0); Eosinophils # (auto) 0.1 10 ^3/uL (0-0.8); Hemoglobin 9.1 g/dL (12.2-16.2); Lymphocytes # (auto) 0.9 10 ^3/uL (0.4-5.4); Monocytes # (auto) 0.6 10 ^3/uL (0-1.3)
[2022-05-29 06:51] LABS: Eosinophils % (auto) 1.2 % (0.0-7.0); Hematocrit 28.9 % (36.0-46.0); Lymphocytes % (auto) 7.4 % (10.0-50.0); Mean Corpuscular Hgb Conc. 31.6 g/dL (32.0-36.0); Mean Corpuscular Volume 104.3 fL (80.0-100.0); Neutrophils % (auto) 85.9 % (37.0-80.0); Red Blood Cells 2.77 10^6/uL (4.0-5.20); Red Cell Distribution Width 16.3 % (11.8-14.3); White Blood Cell 11.7 10^3/uL (4.4-10.8)
[2022-05-29 06:53] LABS: Calcium 7.7 mg/dL (8.5-10.1); Potassium 3.9 mmol/L (3.5-5.1)
[2022-05-29] MEDS: Ensure HIGH Protein Chocolate 8oz Bottle PO SCH ×3 (08:00→18:00)
[2022-05-29] MEDS: FERROUS SULFATE 325mg EC TAB PO SCH ×2 (09:43→18:37)
[2022-05-29] MEDS: dilTIAZem HCL 180MG ER CAP PO SCH ×2 (10:00→16:20)
[2022-05-29] MEDS: AMIODARONE HCL 200 MG TAB PO SCH ×2 (10:00→15:54)
[2022-05-29] MEDS: Pro-Stat SF 30ml Vanilla PO SCH (10:00)
[2022-05-29] MEDS: PANTOPRAZOLE 40 MG/10 ML VIAL INJ IV SCH (10:31)
[2022-05-29] MEDS: ENOXAPARIN SOD 30 MG/0.3 ML SYRINGE SC SCH (10:32)
[2022-05-29] MEDS: LEVOTHYROXINE SODIUM 25 MCG TAB PO SCH (10:50)
[2022-05-29] MEDS ORDERED: SODIUM CHL 0.9% 1000 ML BAG XX ONE (13:00)
[2022-05-29] MEDS: HYDROcodone-ACET 5/325MG TAB PO PRN ×2 (13:32→18:38)
[2022-05-29] MEDS ORDERED: LORazepam 2MG/ML-1ML VIAL IV PRN (14:15)
[2022-05-29] MEDS: CEFTRIAXONE SODIUM 2 GM in D5W 5% 50 ML IV SCH (15:53)
[2022-05-29] MEDS ORDERED: EPOETIN ALFA-EPBX 10,000 UNIT/1ML VIAL SC ONE (21:00)
[2022-05-29] MEDS: PANTOPRAZOLE 40 MG TAB PO SCH (22:00)
[2022-05-29] MEDS: MIRTAZAPINE 30 MG TAB PO SCH (22:00)
[2022-05-29] MEDS: ATORVASTATIN 20 MG TAB PO SCH (22:00)
[2022-05-30 05:00] VITALS: BP 115/47
[2022-05-30] MEDS: SODIUM CHLOR 0.9% PF (SALINE LOCK) 10ML VIAL/SYR IV SCH ×3 (06:18→21:28)
[2022-05-30] MEDS: BUMETANIDE 2.5mg/10ml (0.25 mg/ml) INJ IV SCH ×2 (06:19→18:26)
[2022-05-30] MEDS: FERROUS SULFATE 325mg EC TAB PO SCH ×2 (08:00→18:26)
[2022-05-30] MEDS: Ensure HIGH Protein Chocolate 8oz Bottle PO SCH ×3 (08:00→17:46)
[2022-05-30 09:27] VITALS: BP 126/41
[2022-05-30] MEDS: ENOXAPARIN SOD 30 MG/0.3 ML SYRINGE SC SCH (09:41)
[2022-05-30] MEDS: Pro-Stat SF 30ml Vanilla PO SCH (09:41)
[2022-05-30] MEDS: AMIODARONE HCL 200 MG TAB PO SCH (09:42)
[2022-05-30] MEDS: PANTOPRAZOLE 40 MG TAB PO SCH ×3 (09:42→22:29)
[2022-05-30] MEDS: dilTIAZem HCL 180MG ER CAP PO SCH (09:42)
[2022-05-30] MEDS: LEVOTHYROXINE SODIUM 25 MCG TAB PO SCH (09:42)
[2022-05-30] MEDS: CEFTRIAXONE SODIUM 2 GM in D5W 5% 50 ML IV SCH (10:00)
[2022-05-30 13:15] VITALS: BP 122/41
[2022-05-30] MEDS ORDERED: VANCOMYCIN PER PHARMACY 0 MG IV SCH (15:15)
[2022-05-30] MEDS ORDERED: VANCOMYCIN 1GM/250ML 250 ML IV ONE (16:00)
[2022-05-30 17:08] VITALS: BP 121/49
[2022-05-30] MEDS: ATORVASTATIN 20 MG TAB PO SCH ×2 (21:29→22:29)
[2022-05-30] MEDS: MIRTAZAPINE 30 MG TAB PO SCH ×2 (21:29→22:29)
[2022-05-30 22:00] VITALS: BP 129/49
[2022-05-31] MEDS: HYDROcodone-ACET 5/325MG TAB PO PRN ×2 (00:22→21:31)
[2022-05-31 05:00] VITALS: BP 144/50
[2022-05-31] MEDS: SODIUM CHLOR 0.9% PF (SALINE LOCK) 10ML VIAL/SYR IV SCH ×3 (05:54→21:24)
[2022-05-31] MEDS: BUMETANIDE 2.5mg/10ml (0.25 mg/ml) INJ IV SCH ×2 (05:54→17:59)
[2022-05-31 06:34] LABS: Basophils # (auto) 0.1 10 ^3/uL (0-0.2); Eosinophils # (auto) 0.2 10 ^3/uL (0-0.8); Lymphocytes # (auto) 1.3 10 ^3/uL (0.4-5.4); Monocytes # (auto) 0.6 10 ^3/uL (0-1.3); Red Blood Cells 2.82 10^6/uL (4.0-5.20)
[2022-05-31 06:40] LABS: Basophils % (auto) 1.4 % (0.0-2.0); Eosinophils % (auto) 2.6 % (0.0-7.0); Hematocrit 30.1 % (36.0-46.0); Hemoglobin 9.5 g/dL (12.2-16.2); Lymphocytes % (auto) 14.3 % (10.0-50.0); Mean Corpuscular Hemoglobin 33.6 pg (28.0-32.0); Mean Corpuscular Hgb Conc. 31.4 g/dL (32.0-36.0); Mean Corpuscular Volume 106.8 fL (80.0-100.0); Monocytes % (auto) 6.7 % (0.0-12.0); Red Cell Distribution Width 16.8 % (11.8-14.3); White Blood Cell 9.4 10^3/uL (4.4-10.8)
[2022-05-31] MEDS ORDERED: SODIUM CHL 0.9% 1000 ML BAG XX ONE (07:00)
[2022-05-31] MEDS: Ensure HIGH Protein Chocolate 8oz Bottle PO SCH ×3 (08:26→17:59)
[2022-05-31] MEDS: FERROUS SULFATE 325mg EC TAB PO SCH ×2 (08:46→17:59)
[2022-05-31 09:00] VITALS: BP 104/53
[2022-05-31] MEDS: ALBUMIN 25% 100 ML IV PRN ×2 (09:23→09:42)
[2022-05-31 09:31] VITALS: BP 144/50
[2022-05-31] MEDS: dilTIAZem HCL 180MG ER CAP PO SCH (10:00)
[2022-05-31] MEDS: AMIODARONE HCL 200 MG TAB PO SCH (10:30)
[2022-05-31] MEDS: Pro-Stat SF 30ml Vanilla PO SCH (10:30)
[2022-05-31 11:01] LABS: Calcium 8.3 mg/dL (8.5-10.1)
[2022-05-31 11:05] LABS: BUN/Creatinine Ratio 6.4
[2022-05-31] MEDS: CEFTRIAXONE SODIUM 2 GM in D5W 5% 50 ML IV SCH (12:39)
[2022-05-31] MEDS: ENOXAPARIN SOD 30 MG/0.3 ML SYRINGE SC SCH (12:39)
[2022-05-31] MEDS: PANTOPRAZOLE 40 MG TAB PO SCH ×2 (12:39→21:20)
[2022-05-31 13:00] VITALS: BP 107/59
[2022-05-31] MEDS: LEVOTHYROXINE SODIUM 25 MCG TAB PO SCH (15:26)
[2022-05-31] MEDS ORDERED: NYSTATIN (MOUTH-THROAT) 500,000 UNITS/5 ML SUSP MT ONE (15:45)
[2022-05-31] MEDS ORDERED: VANCOMYCIN 1GM/250ML 250 ML IV ONE (16:00)
[2022-05-31 17:00] VITALS: BP 118/68
[2022-05-31] MEDS: NYSTATIN (MOUTH-THROAT) 500,000 UNITS/5 ML SUSP MT SCH ×2 (17:59→21:21)
[2022-05-31] MEDS ORDERED: EPOETIN ALFA-EPBX 10,000 UNIT/1ML VIAL SC ONE (21:00)
[2022-05-31] MEDS: ATORVASTATIN 20 MG TAB PO SCH (21:20)
[2022-05-31] MEDS: MIRTAZAPINE 30 MG TAB PO SCH (21:20)
[2022-05-31 22:00] VITALS: BP 118/44
[2022-06-01 05:00] VITALS: BP 135/46
[2022-06-01] MEDS: SODIUM CHLOR 0.9% PF (SALINE LOCK) 10ML VIAL/SYR IV SCH ×3 (05:33→21:52)
[2022-06-01] MEDS: NYSTATIN (MOUTH-THROAT) 500,000 UNITS/5 ML SUSP MT SCH ×4 (06:21→21:52)
[2022-06-01] MEDS: BUMETANIDE 2.5mg/10ml (0.25 mg/ml) INJ IV SCH ×2 (06:21→17:45)
[2022-06-01] MEDS: LEVOTHYROXINE SODIUM 25 MCG TAB PO SCH ×2 (06:24→10:00)
[2022-06-01 09:00] VITALS: BP 107/60
[2022-06-01] MEDS: dilTIAZem HCL 180MG ER CAP PO SCH (09:52)
[2022-06-01] MEDS: Ensure HIGH Protein Chocolate 8oz Bottle PO SCH ×3 (09:52→17:45)
[2022-06-01] MEDS: Pro-Stat SF 30ml Vanilla PO SCH (09:53)
[2022-06-01] MEDS: CEFTRIAXONE SODIUM 2 GM in D5W 5% 50 ML IV SCH (10:19)
[2022-06-01] MEDS: FERROUS SULFATE 325mg EC TAB PO SCH ×2 (10:19→17:46)
[2022-06-01] MEDS: ENOXAPARIN SOD 30 MG/0.3 ML SYRINGE SC SCH (10:20)
[2022-06-01] MEDS: PANTOPRAZOLE 40 MG TAB PO SCH ×2 (10:20→21:52)
[2022-06-01] MEDS: AMIODARONE HCL 200 MG TAB PO SCH (10:20)
[2022-06-01 12:33] VITALS: BP 116/48
[2022-06-01] MEDS: guaiFENesin-DM 100/10mg/5ml SYR PO PRN (15:30)
[2022-06-01] MEDS ORDERED: ALBUTEROL MEDNEB 2.5 mg/3ml NEB ONE (15:54)
[2022-06-01 17:06] VITALS: BP 115/61
[2022-06-01 21:25] VITALS: BP 146/66
[2022-06-01] MEDS: ATORVASTATIN 20 MG TAB PO SCH (21:52)
[2022-06-01] MEDS: MIRTAZAPINE 30 MG TAB PO SCH (21:52)
[2022-06-01] MEDS: HYDROcodone-ACET 5/325MG TAB PO PRN (22:00)
[2022-06-02] MEDS: HYDROcodone-ACET 5/325MG TAB PO PRN ×2 (03:13→14:47)
[2022-06-02 04:25] VITALS: BP 120/77
[2022-06-02] MEDS: NYSTATIN (MOUTH-THROAT) 500,000 UNITS/5 ML SUSP MT SCH ×4 (05:24→22:06)
[2022-06-02] MEDS: SODIUM CHLOR 0.9% PF (SALINE LOCK) 10ML VIAL/SYR IV SCH ×3 (05:24→22:07)
[2022-06-02] MEDS: BUMETANIDE 2.5mg/10ml (0.25 mg/ml) INJ IV SCH ×2 (05:25→18:12)
[2022-06-02 06:33] LABS: Hematocrit 31.9 % (36.0-46.0); Hemoglobin 10.4 g/dL (12.2-16.2)
[2022-06-02] MEDS ORDERED: SODIUM CHL 0.9% 1000 ML BAG XX ONE (07:00)
[2022-06-02] MEDS: Ensure HIGH Protein Chocolate 8oz Bottle PO SCH ×3 (08:44→18:05)
[2022-06-02 09:14] VITALS: BP 137/63
[2022-06-02] MEDS: Pro-Stat SF 30ml Vanilla PO SCH (09:40)
[2022-06-02] MEDS: dilTIAZem HCL 180MG ER CAP PO SCH (10:00)
[2022-06-02] MEDS: PANTOPRAZOLE 40 MG TAB PO SCH ×2 (10:43→22:06)
[2022-06-02] MEDS: AMIODARONE HCL 200 MG TAB PO SCH (10:43)
[2022-06-02] MEDS: FERROUS SULFATE 325mg EC TAB PO SCH ×2 (10:44→18:05)
[2022-06-02] MEDS: ENOXAPARIN SOD 30 MG/0.3 ML SYRINGE SC SCH (10:44)
[2022-06-02] MEDS: CEFTRIAXONE SODIUM 2 GM in D5W 5% 50 ML IV SCH (10:44)
[2022-06-02] MEDS: guaiFENesin-DM 100/10mg/5ml SYR PO PRN (10:44)
[2022-06-02 13:08] VITALS: BP 123/49
[2022-06-02 17:00] VITALS: BP 159/75
[2022-06-02] MEDS ORDERED: EPOETIN ALFA-EPBX 10,000 UNIT/1ML VIAL SC ONE (21:00)
[2022-06-02 22:00] VITALS: BP 142/54
[2022-06-02] MEDS: ATORVASTATIN 20 MG TAB PO SCH (22:06)
[2022-06-02] MEDS: MIRTAZAPINE 30 MG TAB PO SCH (22:06)
[2022-06-03 05:00] VITALS: BP 149/54
[2022-06-03] MEDS: NYSTATIN (MOUTH-THROAT) 500,000 UNITS/5 ML SUSP MT SCH ×4 (05:04→21:11)
[2022-06-03] MEDS: SODIUM CHLOR 0.9% PF (SALINE LOCK) 10ML VIAL/SYR IV SCH ×3 (05:04→21:14)
[2022-06-03] MEDS: BUMETANIDE 2.5mg/10ml (0.25 mg/ml) INJ IV SCH (05:05)
[2022-06-03] MEDS ORDERED: SODIUM CHL 0.9% 1000 ML BAG XX ONE (07:00)
[2022-06-03] MEDS: LEVOTHYROXINE SODIUM 50 MCG TAB PO SCH (07:00)
[2022-06-03] MEDS: FERROUS SULFATE 325mg EC TAB PO SCH ×2 (08:00→18:05)
[2022-06-03] MEDS: Ensure HIGH Protein Chocolate 8oz Bottle PO SCH ×3 (08:00→18:05)
[2022-06-03 08:10] VITALS: BP 152/59
[2022-06-03] MEDS: Pro-Stat SF 30ml Vanilla PO SCH (10:00)
[2022-06-03] MEDS: ENOXAPARIN SOD 30 MG/0.3 ML SYRINGE SC SCH (10:00)
[2022-06-03] MEDS: dilTIAZem HCL 180MG ER CAP PO SCH (10:00)
[2022-06-03] MEDS: AMIODARONE HCL 200 MG TAB PO SCH (10:00)
[2022-06-03] MEDS: PANTOPRAZOLE 40 MG TAB PO SCH ×2 (10:00→21:11)
[2022-06-03 10:47] LABS: Basophils # (auto) 0.1 10 ^3/uL (0-0.2); Basophils % (auto) 1.8 % (0.0-2.0); Eosinophils # (auto) 0.1 10 ^3/uL (0-0.8); Eosinophils % (auto) 1.3 % (0.0-7.0); Hematocrit 29.8 % (36.0-46.0); Hemoglobin 9.5 g/dL (12.2-16.2); Lymphocytes # (auto) 0.7 10 ^3/uL (0.4-5.4); Lymphocytes % (auto) 8.8 % (10.0-50.0); Mean Corpuscular Hemoglobin 31.7 pg (28.0-32.0); Mean Corpuscular Hgb Conc. 31.8 g/dL (32.0-36.0); Mean Corpuscular Volume 99.8 fL (80.0-100.0); Monocytes # (auto) 0.5 10 ^3/uL (0-1.3); Monocytes % (auto) 5.5 % (0.0-12.0); Neutrophils % (auto) 82.6 % (37.0-80.0); Red Blood Cells 2.99 10^6/uL (4.0-5.20); Red Cell Distribution Width 15.8 % (11.8-14.3); White Blood Cell 8.4 10^3/uL (4.4-10.8)
[2022-06-03 11:02] LABS: Albumin 2.7 g/dL (3.4-5.0); Calcium 8.2 mg/dL (8.5-10.1); Potassium 4.3 mmol/L (3.5-5.1)
[2022-06-03 11:07] LABS: BUN/Creatinine Ratio 8.7; Bilirubin, Total 0.4 mg/dL (0.2-1.0); Total Protein 5.2 g/dL (6.4-8.2)
[2022-06-03] MEDS: ALBUMIN 25% 100 ML IV PRN (11:10)
[2022-06-03] MEDS ORDERED: CEFTRIAXONE SODIUM 2 GM in D5W 5% 50 ML IV SCH (11:15)
[2022-06-03 11:17] VITALS: BP 150/57
[2022-06-03 12:10] VITALS: BP 117/66
[2022-06-03] MEDS: CEFTRIAXONE SODIUM 2 GM in D5W 5% 50 ML IV SCH (15:02)
[2022-06-03] MEDS ORDERED: VANCOMYCIN 1GM/250ML 250 ML IV ONE (16:00)
[2022-06-03 16:10] VITALS: BP 139/54
[2022-06-03] MEDS ORDERED: EPOETIN ALFA-EPBX 10,000 UNIT/1ML VIAL SC ONE (21:00)
[2022-06-03] MEDS: MIRTAZAPINE 30 MG TAB PO SCH (21:11)
[2022-06-03] MEDS: ATORVASTATIN 20 MG TAB PO SCH (21:11)
[2022-06-03 21:48] VITALS: BP 117/44
[2022-06-04 04:43] VITALS: BP 107/37
[2022-06-04 05:25] LABS: Basophils # (auto) 0.1 10 ^3/uL (0-0.2); Basophils % (auto) 1.2 % (0.0-2.0); Eosinophils # (auto) 0.2 10 ^3/uL (0-0.8); Eosinophils % (auto) 2.1 % (0.0-7.0); Hematocrit 37.3 % (36.0-46.0); Hemoglobin 11.7 g/dL (12.2-16.2); Lymphocytes % (auto) 10.2 % (10.0-50.0); Mean Corpuscular Hemoglobin 31.6 pg (28.0-32.0); Mean Corpuscular Hgb Conc. 31.4 g/dL (32.0-36.0); Mean Corpuscular Volume 100.7 fL (80.0-100.0); Monocytes # (auto) 0.6 10 ^3/uL (0-1.3); Monocytes % (auto) 6.4 % (0.0-12.0); Neutrophils # (auto) 7.8 10 ^3/uL (1.6-8.6); Neutrophils % (auto) 80.1 % (37.0-80.0); Nucleated Red Blood Cells % 0.7 %; Red Blood Cells 3.71 10^6/uL (4.0-5.20); White Blood Cell 9.7 10^3/uL (4.4-10.8)
[2022-06-04 05:34] LABS: Albumin 3.7 g/dL (3.4-5.0); Calcium 9.1 mg/dL (8.5-10.1); Potassium 4.1 mmol/L (3.5-5.1)
[2022-06-04 05:37] LABS: BUN/Creatinine Ratio 6.3; Bilirubin, Total 0.4 mg/dL (0.2-1.0); Total Protein 6.7 g/dL (6.4-8.2)
[2022-06-04] MEDS: NYSTATIN (MOUTH-THROAT) 500,000 UNITS/5 ML SUSP MT SCH ×3 (06:03→17:18)
[2022-06-04] MEDS: SODIUM CHLOR 0.9% PF (SALINE LOCK) 10ML VIAL/SYR IV SCH ×2 (06:03→14:00)
[2022-06-04] MEDS: LEVOTHYROXINE SODIUM 50 MCG TAB PO SCH (06:03)
[2022-06-04] MEDS: Ensure HIGH Protein Chocolate 8oz Bottle PO SCH ×2 (08:00→12:00)
[2022-06-04 08:26] VITALS: BP 135/56
[2022-06-04] MEDS: PANTOPRAZOLE 40 MG TAB PO SCH (09:59)
[2022-06-04] MEDS: AMIODARONE HCL 200 MG TAB PO SCH (10:00)
[2022-06-04] MEDS: FERROUS SULFATE 325mg EC TAB PO SCH (10:00)
[2022-06-04] MEDS: dilTIAZem HCL 180MG ER CAP PO SCH (10:00)
[2022-06-04] MEDS: Pro-Stat SF 30ml Vanilla PO SCH (10:01)
[2022-06-04] MEDS: CEFTRIAXONE SODIUM 2 GM in D5W 5% 50 ML IV SCH (10:01)
[2022-06-04 13:00] VITALS: BP 136/60
[2022-06-04] MEDS ORDERED: DEXT1SYP9 PO (13:05)
[2022-06-04] MEDS ORDERED: AMIO200T43 PO (13:05)
[2022-06-04] MEDS ORDERED: NYS5LQ MT (13:05)
[2022-06-04 15:57] VITALS: BP 136/60
[2022-06-04] MEDS: guaiFENesin-DM 100/10mg/5ml SYR PO PRN (17:18)
[2022-06-05] MEDS ORDERED: SODIUM CHL 0.9% 1000 ML BAG XX ONE (07:00)
== END 2022-06-04 17:36 | disposition home or self-care (01) | DRG 919 ==
LOC: ER 08:37 → EDUNIT# 08:37 → EDBD 08:37 → TELE 10:48 → TELE-WESTW 05-22 22:05
PROVIDERS: ADMIT Internal Medicine; ATTEND Internal Medicine
PROC: 5A09357 Assistance with Respiratory Ventilation, Less than 24 Consecutive Hours, Continuous Positive Airway Pressure (ICD-10-PCS; 2022-05-17)
PROC: 05HC33Z Insertion of Infusion Device into Left Basilic Vein, Percutaneous Approach (ICD-10-PCS; 2022-05-17)
PROC: B54NZZA Ultrasonography of Left Upper Extremity Veins, Guidance (ICD-10-PCS; 2022-05-17)
PROC: 5A09357 Assistance with Respiratory Ventilation, Less than 24 Consecutive Hours, Continuous Positive Airway Pressure (ICD-10-PCS; 2022-05-18)
PROC: 5A09357 Assistance with Respiratory Ventilation, Less than 24 Consecutive Hours, Continuous Positive Airway Pressure (ICD-10-PCS; 2022-05-19)
PROC: 5A09357 Assistance with Respiratory Ventilation, Less than 24 Consecutive Hours, Continuous Positive Airway Pressure (ICD-10-PCS; 2022-05-20)
PROC: 06HY33Z Insertion of Infusion Device into Lower Vein, Percutaneous Approach (ICD-10-PCS; 2022-05-20)
PROC: B54CZZA Ultrasonography of Left Lower Extremity Veins, Guidance (ICD-10-PCS; 2022-05-20)
PROC: 5A09357 Assistance with Respiratory Ventilation, Less than 24 Consecutive Hours, Continuous Positive Airway Pressure (ICD-10-PCS; 2022-05-21)
PROC: 02HV33Z Insertion of Infusion Device into Superior Vena Cava, Percutaneous Approach (ICD-10-PCS; 2022-05-21)
PROC: 5A1D70Z Performance of Urinary Filtration, Intermittent, Less than 6 Hours Per Day (ICD-10-PCS; 2022-05-22)
PROC: 5A09357 Assistance with Respiratory Ventilation, Less than 24 Consecutive Hours, Continuous Positive Airway Pressure (ICD-10-PCS; 2022-05-22)
PROC: 5A1D70Z Performance of Urinary Filtration, Intermittent, Less than 6 Hours Per Day (ICD-10-PCS; 2022-05-23)
PROC: 5A09357 Assistance with Respiratory Ventilation, Less than 24 Consecutive Hours, Continuous Positive Airway Pressure (ICD-10-PCS; 2022-05-23)
PROC: 5A09357 Assistance with Respiratory Ventilation, Less than 24 Consecutive Hours, Continuous Positive Airway Pressure (ICD-10-PCS; 2022-05-23)
PROC: 5A1D70Z Performance of Urinary Filtration, Intermittent, Less than 6 Hours Per Day (ICD-10-PCS; 2022-05-24)
PROC: 5A09357 Assistance with Respiratory Ventilation, Less than 24 Consecutive Hours, Continuous Positive Airway Pressure (ICD-10-PCS; 2022-05-24)
PROC: 5A09357 Assistance with Respiratory Ventilation, Less than 24 Consecutive Hours, Continuous Positive Airway Pressure (ICD-10-PCS; 2022-05-25)
PROC: 0WPGX3Z Removal of Infusion Device from Peritoneal Cavity, External Approach (ICD-10-PCS; 2022-05-25)
PROC: 5A09357 Assistance with Respiratory Ventilation, Less than 24 Consecutive Hours, Continuous Positive Airway Pressure (ICD-10-PCS; 2022-05-26)
PROC: 5A1D70Z Performance of Urinary Filtration, Intermittent, Less than 6 Hours Per Day (ICD-10-PCS; 2022-05-27)
PROC: 5A09357 Assistance with Respiratory Ventilation, Less than 24 Consecutive Hours, Continuous Positive Airway Pressure (ICD-10-PCS; 2022-05-27)
PROC: 5A09357 Assistance with Respiratory Ventilation, Less than 24 Consecutive Hours, Continuous Positive Airway Pressure (ICD-10-PCS; 2022-05-28)
PROC: 0JH63XZ Insertion of Tunneled Vascular Access Device into Chest Subcutaneous Tissue and Fascia, Percutaneous Approach (ICD-10-PCS; 2022-05-28)
PROC: 02HV33Z Insertion of Infusion Device into Superior Vena Cava, Percutaneous Approach (ICD-10-PCS; 2022-05-28)
PROC: B5181ZA Fluoroscopy of Superior Vena Cava using Low Osmolar Contrast, Guidance (ICD-10-PCS; 2022-05-28)
PROC: B548ZZA Ultrasonography of Superior Vena Cava, Guidance (ICD-10-PCS; 2022-05-28)
PROC: 5A1D70Z Performance of Urinary Filtration, Intermittent, Less than 6 Hours Per Day (ICD-10-PCS; principal; 2022-05-29)
PROC: 5A09357 Assistance with Respiratory Ventilation, Less than 24 Consecutive Hours, Continuous Positive Airway Pressure (ICD-10-PCS; 2022-05-29)
PROC: 5A09357 Assistance with Respiratory Ventilation, Less than 24 Consecutive Hours, Continuous Positive Airway Pressure (ICD-10-PCS; 2022-05-30)
PROC: 5A1D70Z Performance of Urinary Filtration, Intermittent, Less than 6 Hours Per Day (ICD-10-PCS; 2022-05-31)
PROC: 5A09357 Assistance with Respiratory Ventilation, Less than 24 Consecutive Hours, Continuous Positive Airway Pressure (ICD-10-PCS; 2022-05-31)
PROC: 5A09357 Assistance with Respiratory Ventilation, Less than 24 Consecutive Hours, Continuous Positive Airway Pressure (ICD-10-PCS; 2022-06-01)
PROC: 5A09357 Assistance with Respiratory Ventilation, Less than 24 Consecutive Hours, Continuous Positive Airway Pressure (ICD-10-PCS; 2022-06-02)
PROC: 5A1D70Z Performance of Urinary Filtration, Intermittent, Less than 6 Hours Per Day (ICD-10-PCS; 2022-06-03)
PROC: 5A09357 Assistance with Respiratory Ventilation, Less than 24 Consecutive Hours, Continuous Positive Airway Pressure (ICD-10-PCS; 2022-06-03)
PROC: 5A09357 Assistance with Respiratory Ventilation, Less than 24 Consecutive Hours, Continuous Positive Airway Pressure (ICD-10-PCS; 2022-06-04)
DX: T85.71XA Infection and inflammatory reaction due to peritoneal dialysis catheter, initial encounter (principal); A41.9 Sepsis, unspecified organism; G93.41 Metabolic encephalopathy; N18.6 End stage renal disease; R65.21 Severe sepsis with septic shock; K65.8 Other peritonitis; I50.43 Acute on chronic combined systolic (congestive) and diastolic (congestive) heart failure; J96.01 Acute respiratory failure with hypoxia; J18.9 Pneumonia, unspecified organism; E44.0 Moderate protein-calorie malnutrition; E87.1 Hypo-osmolality and hyponatremia; E87.20 Acidosis, unspecified; I13.2 Hypertensive heart and chronic kidney disease with heart failure and with stage 5 chronic kidney disease, or end stage renal disease; Z20.822 Contact with and (suspected) exposure to COVID-19; Z66 Do not resuscitate; E03.9 Hypothyroidism, unspecified; D64.9 Anemia, unspecified; E87.6 Hypokalemia; Z99.2 Dependence on renal dialysis; I25.10 Atherosclerotic heart disease of native coronary artery without angina pectoris; E78.5 Hyperlipidemia, unspecified; E87.8 Other disorders of electrolyte and fluid balance, not elsewhere classified; F17.210 Nicotine dependence, cigarettes, uncomplicated; D63.8 Anemia in other chronic diseases classified elsewhere; Z68.30 Body mass index [BMI] 30.0-30.9, adult; I34.0 Nonrheumatic mitral (valve) insufficiency; I25.2 Old myocardial infarction; Z79.899 Other long term (current) drug therapy; Z88.2 Allergy status to sulfonamides; Y83.8 Other surgical procedures as the cause of abnormal reaction of the patient, or of later complication, without mention of misadventure at the time of the procedure; Y92.89 Other specified places as the place of occurrence of the external cause; Z82.49 Family history of ischemic heart disease and other diseases of the circulatory system; Z87.730 Personal history of (corrected) cleft lip and palate; Z90.710 Acquired absence of both cervix and uterus
CPT/HCPCS: 36415; 36558; 36600; 71045; 74176; 76705; 76942; 77001; 80048; 80053; 80162; 80202; 81001; 82805; 83605; 83690; 83735; 83880; 84100; 84443; 84484; 85007; 85014; 85018; 85025; 85027; 85610; 85652; 85730; 86141; 86850; 86900; 86901; 87040; 87070; 87075; 87077; 87081; 87186; 87205; 87426; 89051; 90935; 93005; 93306; 94640; 94660; 96365; 96366; 96367; 96368; 96372; 96375; 96376; 97110; 97116; 97163; 97530; 99152; 99291; C9113; G0378; J0696; J1642; J1815; J1956; J2001; J2250; J2405; J2543; J3490; J7060; P9047

== ENCOUNTER → 2022-08-27 | Outpatient (CLI) | payer MEDICARE, OTHER ==
[~2022-08-27] VITALS: Ht 152.4 cm; Wt 62.6 kg
[~2022-08-27] MED LIST changes: +ADENOSINE 53 MG in GIVE UN-DILUTED 0 ML IV ONE; +ADENOSINE 90 MG/30 ML INJ IV ONE; +AMIO200T43 PO; +DEXT1SYP9 PO; +NYS5LQ MT
== END | disposition home or self-care (01) ==
LOC: Rad HDHVI 12:57
PROVIDERS: ATTEND Internal Medicine Cardiovascular Disease
DX: Z01.810 Encounter for preprocedural cardiovascular examination (principal); I10 Essential (primary) hypertension; I48.91 Unspecified atrial fibrillation; E78.5 Hyperlipidemia, unspecified; Z82.49 Family history of ischemic heart disease and other diseases of the circulatory system
CPT/HCPCS: 78452; 93005; 96374; 96375; A9500; J0153

== ENCOUNTER → 2022-08-30 | Outpatient (CLI) | payer MEDICARE, OTHER ==
[~2022-08-30] MED LIST changes: -ADENOSINE 53 MG in GIVE UN-DILUTED 0 ML IV ONE; -ADENOSINE 90 MG/30 ML INJ IV ONE
== END | disposition home or self-care (01) ==
LOC: Rad HDHVI 13:44
PROVIDERS: ATTEND Internal Medicine Cardiovascular Disease
DX: Z01.818 Encounter for other preprocedural examination (principal); I35.8 Other nonrheumatic aortic valve disorders
CPT/HCPCS: 93306

== ENCOUNTER 2023-01-03 07:41 | Inpatient (IN) | payer MEDICARE, OTHER ==
[2023-01-03] VITALS (7 sets, daily range): BP systolic 120–152; BP diastolic 45–82; PULSE 67–139; RESP 14–18; TEMP 100; O2SAT 95–99
[~2023-01-03] VITALS: Ht 149.9 cm; Wt 93.4 kg
[2023-01-03] MEDS ORDERED: ACETAMINOPHEN 325 MG TAB PO ONE (08:00)
[2023-01-03] MEDS ORDERED: PIPERACILLIN-TAZOB 3.375GM 100 ML IV ONE (08:15)
[2023-01-03 08:39] LABS: Basophils # (auto) 0.1 10 ^3/uL (0-0.2); Basophils % (auto) 0.5 % (0.0-2.0); Eosinophils # (auto) 0.1 10 ^3/uL (0-0.8); Eosinophils % (auto) 0.5 % (0.0-7.0); Hemoglobin 11.7 g/dL (12.2-16.2); Lymphocytes # (auto) 0.4 10 ^3/uL (0.4-5.4); Lymphocytes % (auto) 1.9 % (10.0-50.0); Mean Corpuscular Hemoglobin 29.4 pg (28.0-32.0); Mean Corpuscular Hgb Conc. 32.6 g/dL (32.0-36.0); Mean Corpuscular Volume 90.2 fL (80.0-100.0); Monocytes # (auto) 0.5 10 ^3/uL (0-1.3); Monocytes % (auto) 2.8 % (0.0-12.0); Neutrophils # (auto) 18.5 10 ^3/uL (1.6-8.6); Neutrophils % (auto) 94.3 % (37.0-80.0); Red Cell Distribution Width 15.5 % (11.8-14.3); White Blood Cell 19.6 10^3/uL (4.4-10.8)
[2023-01-03 09:11] LABS: Alanine Aminotransferase 24 U/L (7-40); Albumin 4.5 g/dL (3.2-4.8); Alkaline Phosphatase 117 U/L (46-116); Anion Gap 15.1 (5-15); Aspartate Aminotransferase 18 U/L (13-40); BUN/Creatinine Ratio 9.9 (10.0-20.0); Bilirubin, Total 0.5 mg/dL (0.2-1.0); Blood Urea Nitrogen 69 mg/dL (9-23); Calcium 9.2 mg/dL (8.5-10.1); Carbon Dioxide 22.9 mmol/L (20-30); Chloride 101 mmol/L (98-107); Glucose 87 mg/dL (74-106); Potassium 3.5 mmol/L (3.5-5.1); Sodium 139 mmol/L (136-145); Total Protein 6.6 g/dL (5.7-8.2)
[2023-01-03 09:45] LABS: Lactic Acid w/Reflex 2.1 mmol/L (0.4-2.0)
[2023-01-03] MEDS ORDERED: SODIUM CHLORIDE 0.9% 250 ML IV ONE (12:30)
[2023-01-03] MEDS ORDERED: MORPHINE SULFATE INJ 2 MG/ml SYRG IV PRN (12:30)
[2023-01-03] MEDS ORDERED: DOCUSATE SOD 100 MG CAP PO PRN (12:30)
[2023-01-03] MEDS ORDERED: VANCOMYCIN PER PHARMACY 0 MG IV SCH (12:30)
[2023-01-03] MEDS ORDERED: ONDANSETRON HCL 4 MG/2 ML VIAL IV PRN (12:30)
[2023-01-03] MEDS ORDERED: VANCOMYCIN 1GM/250ML 250 ML IV ONE (13:30)
[2023-01-03 17:11] LABS: Phosphorus 5.4 mg/dL (2.4-5.1)
[2023-01-03] MEDS ORDERED: HYDROcodone-ACET 5/325MG TAB PO PRN (17:30)
[2023-01-03] MEDS: FERROUS SULFATE 325mg EC TAB PO SCH (18:15)
[2023-01-03] MEDS: MIRTAZAPINE 30 MG TAB PO SCH (22:40)
[2023-01-03] MEDS: METOPROLOL TARTRATE 25 MG TAB PO SCH (22:41)
[2023-01-03] MEDS: ATORVASTATIN 20 MG TAB PO SCH (22:41)
[2023-01-03] MEDS: APIXABAN 2.5 MG TAB PO SCH (22:41)
[2023-01-04] VITALS (14 sets, daily range): BP systolic 113–167; BP diastolic 41–67; PULSE 66–83; RESP 16–20; TEMP 98.2–99.1; O2SAT 91–99
[2023-01-04 06:49] LABS: Basophils # (auto) 0.1 10 ^3/uL (0-0.2); Basophils % (auto) 0.6 % (0.0-2.0); Eosinophils # (auto) 0 10 ^3/uL (0-0.8); Hematocrit 31.9 % (36.0-46.0); Hemoglobin 10.1 g/dL (12.2-16.2); Lymphocytes # (auto) 0.8 10 ^3/uL (0.4-5.4); Mean Corpuscular Hemoglobin 29.1 pg (28.0-32.0); Mean Corpuscular Hgb Conc. 31.8 g/dL (32.0-36.0); Mean Corpuscular Volume 91.5 fL (80.0-100.0); Monocytes # (auto) 0.5 10 ^3/uL (0-1.3); Neutrophils # (auto) 11.7 10 ^3/uL (1.6-8.6); Neutrophils % (auto) 89.4 % (37.0-80.0); Red Blood Cells 3.48 10^6/uL (4.0-5.20); Red Cell Distribution Width 15.3 % (11.8-14.3); White Blood Cell 13.1 10^3/uL (4.4-10.8)
[2023-01-04 06:58] LABS: Alanine Aminotransferase 12 U/L (7-40); Alkaline Phosphatase 88 U/L (46-116); Anion Gap 17.5 (5-15); BUN/Creatinine Ratio 6.6 (10.0-20.0); Calcium 8.8 mg/dL (8.7-10.4); Carbon Dioxide 17.5 mmol/L (20-30); Chloride 101 mmol/L (98-107); Glucose 63 mg/dL (74-106); Potassium 3.6 mmol/L (3.5-5.1); Sodium 136 mmol/L (136-145)
[2023-01-04 06:59] LABS: Albumin 3.9 g/dL (3.2-4.8); Aspartate Aminotransferase 11 U/L (13-40)
[2023-01-04 07:00] LABS: Bilirubin, Total 0.3 mg/dL (0.2-1.0); Total Protein 6.1 g/dL (5.7-8.2)
[2023-01-04] MEDS: LEVOTHYROXINE SODIUM 50 MCG TAB PO SCH (07:03)
[2023-01-04 08:01] LABS: Blood Urea Nitrogen 57 mg/dL (9-23)
[2023-01-04] MEDS: FERROUS SULFATE 325mg EC TAB PO SCH ×2 (08:55→17:45)
[2023-01-04] MEDS: cefTRIAXone 1GM/50ML D5W 50 ML IV SCH ×2 (08:55→11:21)
[2023-01-04] MEDS: AMIODARONE HCL 200 MG TAB PO SCH (10:39)
[2023-01-04] MEDS: APIXABAN 2.5 MG TAB PO SCH ×2 (10:39→21:45)
[2023-01-04] MEDS: METOPROLOL TARTRATE 25 MG TAB PO SCH ×2 (10:40→21:46)
[2023-01-04] MEDS ORDERED: VANCOMYCIN 500 MG in D5W 5% 100 ML IV ONE (12:00)
[2023-01-04] MEDS: metroNIDAZOLE 500MG/100ML 100 ML IV SCH ×2 (14:17→21:45)
[2023-01-04] MEDS: ATORVASTATIN 20 MG TAB PO SCH (21:45)
[2023-01-04] MEDS: MIRTAZAPINE 30 MG TAB PO SCH (21:45)
[2023-01-04] MEDS: ACETAMINOPHEN 325 MG TAB PO PRN (22:05)
[2023-01-05] VITALS (14 sets, daily range): BP systolic 119–164; BP diastolic 57–107; PULSE 64–146; RESP 16–20; TEMP 97.4–98.1; O2SAT 92–98
[2023-01-05] MEDS: metroNIDAZOLE 500MG/100ML 100 ML IV SCH ×3 (06:00→21:23)
[2023-01-05] MEDS: LEVOTHYROXINE SODIUM 50 MCG TAB PO SCH (07:17)
[2023-01-05] MEDS ORDERED: SODIUM CHL 0.9% 1000 ML BAG XX ONE (08:30)
[2023-01-05 08:31] LABS: Alanine Aminotransferase 13 U/L (7-40); Albumin 4.1 g/dL (3.2-4.8); Alkaline Phosphatase 97 U/L (46-116); Anion Gap 17.4 (5-15); Aspartate Aminotransferase 13 U/L (13-40); BUN/Creatinine Ratio 6.8 (10.0-20.0); Bilirubin, Total 0.3 mg/dL (0.2-1.0); Calcium 8.8 mg/dL (8.5-10.1); Carbon Dioxide 16.6 mmol/L (20-30); Chloride 102 mmol/L (98-107); Glucose 83 mg/dL (74-106); Potassium 3.9 mmol/L (3.5-5.1); Sodium 136 mmol/L (136-145)
[2023-01-05 08:32] LABS: Total Protein 6.5 g/dL (5.7-8.2)
[2023-01-05 08:40] LABS: Blood Urea Nitrogen 70 mg/dL (9-23)
[2023-01-05] MEDS ORDERED: VANCOMYCIN 1GM/250ML 250 ML IV SCH (09:00)
[2023-01-05] MEDS: FERROUS SULFATE 325mg EC TAB PO SCH ×2 (09:53→17:55)
[2023-01-05] MEDS: APIXABAN 2.5 MG TAB PO SCH ×2 (09:53→21:22)
[2023-01-05] MEDS: AMIODARONE HCL 200 MG TAB PO SCH (09:53)
[2023-01-05] MEDS: METOPROLOL TARTRATE 25 MG TAB PO SCH ×2 (09:53→21:23)
[2023-01-05] MEDS ORDERED: EPOETIN ALFA-EPBX 10,000 UNIT/1ML VIAL SC ONE (21:00)
[2023-01-05] MEDS: ATORVASTATIN 20 MG TAB PO SCH (21:22)
[2023-01-05] MEDS: MIRTAZAPINE 30 MG TAB PO SCH (21:22)
[2023-01-05] MEDS: ACETAMINOPHEN 325 MG TAB PO PRN (23:35)
[2023-01-06] VITALS (12 sets, daily range): BP systolic 129–153; BP diastolic 53–66; PULSE 72–120; RESP 16–20; TEMP 96.9–98; O2SAT 93–100
[2023-01-06 06:43] LABS: Basophils # (auto) 0.1 10 ^3/uL (0-0.2); Basophils % (auto) 1.3 % (0.0-2.0); Eosinophils # (auto) 0.3 10 ^3/uL (0-0.8); Eosinophils % (auto) 2.7 % (0.0-7.0); Hematocrit 30.7 % (36.0-46.0); Hemoglobin 10.1 g/dL (12.2-16.2); Lymphocytes # (auto) 1.4 10 ^3/uL (0.4-5.4); Lymphocytes % (auto) 14.6 % (10.0-50.0); Mean Corpuscular Hemoglobin 29.7 pg (28.0-32.0); Mean Corpuscular Hgb Conc. 32.9 g/dL (32.0-36.0); Mean Corpuscular Volume 90.1 fL (80.0-100.0); Monocytes # (auto) 0.5 10 ^3/uL (0-1.3); Monocytes % (auto) 5.6 % (0.0-12.0); Neutrophils # (auto) 7.1 10 ^3/uL (1.6-8.6); Neutrophils % (auto) 75.8 % (37.0-80.0); Red Cell Distribution Width 15.7 % (11.8-14.3); White Blood Cell 9.4 10^3/uL (4.4-10.8)
[2023-01-06] MEDS: LEVOTHYROXINE SODIUM 50 MCG TAB PO SCH (06:51)
[2023-01-06] MEDS: metroNIDAZOLE 500MG/100ML 100 ML IV SCH ×3 (06:51→22:03)
[2023-01-06] MEDS: cefTRIAXone 1GM/50ML D5W 50 ML IV SCH (09:00)
[2023-01-06] MEDS: FERROUS SULFATE 325mg EC TAB PO SCH ×2 (09:00→17:49)
[2023-01-06] MEDS: AMIODARONE HCL 200 MG TAB PO SCH (09:00)
[2023-01-06] MEDS: APIXABAN 2.5 MG TAB PO SCH ×2 (09:01→22:03)
[2023-01-06] MEDS: METOPROLOL TARTRATE 25 MG TAB PO SCH ×2 (09:01→22:06)
[2023-01-06] MEDS ORDERED: VANCOMYCIN 1GM/250ML 250 ML IV ONE (18:00)
[2023-01-06] MEDS: MIRTAZAPINE 30 MG TAB PO SCH (22:03)
[2023-01-06] MEDS: ATORVASTATIN 20 MG TAB PO SCH (22:03)
[2023-01-06] MEDS: ACETAMINOPHEN 325 MG TAB PO PRN (22:08)
[2023-01-07] VITALS (12 sets, daily range): BP systolic 135–150; BP diastolic 54–76; PULSE 58–136; RESP 14–20; TEMP 97.4–98.4; O2SAT 92–98
[2023-01-07] MEDS: metroNIDAZOLE 500MG/100ML 100 ML IV SCH ×3 (05:34→21:06)
[2023-01-07] MEDS: LEVOTHYROXINE SODIUM 50 MCG TAB PO SCH (05:35)
[2023-01-07 06:20] LABS: Basophils # (auto) 0.1 10 ^3/uL (0-0.2); Eosinophils # (auto) 0.2 10 ^3/uL (0-0.8); Eosinophils % (auto) 2.1 % (0.0-7.0); Hematocrit 30.6 % (36.0-46.0); Hemoglobin 9.9 g/dL (12.2-16.2); Lymphocytes % (auto) 12.6 % (10.0-50.0); Mean Corpuscular Hemoglobin 29.5 pg (28.0-32.0); Mean Corpuscular Hgb Conc. 32.3 g/dL (32.0-36.0); Mean Corpuscular Volume 91.1 fL (80.0-100.0); Monocytes # (auto) 0.5 10 ^3/uL (0-1.3); Monocytes % (auto) 6.8 % (0.0-12.0); Neutrophils % (auto) 77.5 % (37.0-80.0); Nucleated Red Blood Cells % 0.1 %; Red Blood Cells 3.36 10^6/uL (4.0-5.20); Red Cell Distribution Width 15.6 % (11.8-14.3); White Blood Cell 7.7 10^3/uL (4.4-10.8)
[2023-01-07 06:24] LABS: Chloride 102 mmol/L (98-107); Potassium 3.8 mmol/L (3.5-5.1); Sodium 139 mmol/L (136-145)
[2023-01-07 06:25] LABS: Anion Gap 21.8 (5-15); Calcium 8.9 mg/dL (8.7-10.4); Carbon Dioxide 15.2 mmol/L (20-30)
[2023-01-07 06:35] LABS: Blood Urea Nitrogen 58 mg/dL (9-23)
[2023-01-07 06:37] LABS: Glucose 40 mg/dL (74-106)
[2023-01-07 06:52] LABS: BUN/Creatinine Ratio 6.2 (10.0-20.0)
[2023-01-07] MEDS: APIXABAN 2.5 MG TAB PO SCH ×2 (07:54→21:07)
[2023-01-07] MEDS: cefTRIAXone 1GM/50ML D5W 50 ML IV SCH (07:54)
[2023-01-07] MEDS: FERROUS SULFATE 325mg EC TAB PO SCH ×2 (07:54→18:20)
[2023-01-07] MEDS: AMIODARONE HCL 200 MG TAB PO SCH (07:55)
[2023-01-07] MEDS: METOPROLOL TARTRATE 25 MG TAB PO SCH ×2 (07:55→21:11)
[2023-01-07] MEDS ORDERED: SODIUM BICARBONATE 8.4 % INJ 50ML VIAL IV ONE ×2 (10:45→14:15)
[2023-01-07] MEDS: guaiFENesin 200 MG/10 ML UD PO PRN ×2 (12:27→21:14)
[2023-01-07] MEDS: MIRTAZAPINE 30 MG TAB PO SCH (21:07)
[2023-01-07] MEDS: ATORVASTATIN 20 MG TAB PO SCH (21:07)
[2023-01-07] MEDS: ACETAMINOPHEN 325 MG TAB PO PRN (21:12)
[2023-01-08] VITALS (8 sets, daily range): BP systolic 126–146; BP diastolic 54–67; PULSE 59–125; RESP 16–19; TEMP 98–98.3; O2SAT 93–98
[2023-01-08 05:59] LABS: Chloride 103 mmol/L (98-107); Potassium 3.8 mmol/L (3.5-5.1); Sodium 138 mmol/L (136-145)
[2023-01-08 06:00] LABS: Anion Gap 17.7 (5-15); Calcium 8.5 mg/dL (8.5-10.1); Carbon Dioxide 17.3 mmol/L (20-30)
[2023-01-08 06:05] LABS: BUN/Creatinine Ratio 7.5 (10.0-20.0); Glucose 74 mg/dL (74-106)
[2023-01-08] MEDS: LEVOTHYROXINE SODIUM 50 MCG TAB PO SCH (06:09)
[2023-01-08] MEDS: metroNIDAZOLE 500MG/100ML 100 ML IV SCH ×2 (06:10→16:16)
[2023-01-08 07:06] LABS: Blood Urea Nitrogen 78 mg/dL (9-23)
[2023-01-08] MEDS ORDERED: MET500T PO (08:55)
[2023-01-08] MEDS ORDERED: LEVO500T91 PO (08:55)
[2023-01-08] MEDS: cefTRIAXone 1GM/50ML D5W 50 ML IV SCH (09:00)
[2023-01-08] MEDS ORDERED: SODIUM CHL 0.9% 1000 ML BAG XX ONE (09:15)
[2023-01-08] MEDS ORDERED: LOPE7.5C PO (09:31)
[2023-01-08] MEDS: METOPROLOL TARTRATE 25 MG TAB PO SCH (10:00)
[2023-01-08] MEDS: guaiFENesin 200 MG/10 ML UD PO PRN (11:08)
[2023-01-08] MEDS: AMIODARONE HCL 200 MG TAB PO SCH (11:08)
[2023-01-08] MEDS: FERROUS SULFATE 325mg EC TAB PO SCH (11:08)
[2023-01-08] MEDS: APIXABAN 2.5 MG TAB PO SCH (11:08)
[2023-01-08] MEDS ORDERED: EPOETIN ALFA-EPBX 10,000 UNIT/1ML VIAL SC ONE (21:00)
== END 2023-01-08 16:16 | disposition home health service (06) | DRG 871 ==
LOC: EDBD 07:41 → ER 07:41 → TELE 12:38 → TELE-CENTR 01-04 11:22
PROVIDERS: ADMIT Nurse Practitioner Family; ATTEND Family Medicine
PROC: 5A09357 Assistance with Respiratory Ventilation, Less than 24 Consecutive Hours, Continuous Positive Airway Pressure (ICD-10-PCS; 2023-01-03)
PROC: 5A09357 Assistance with Respiratory Ventilation, Less than 24 Consecutive Hours, Continuous Positive Airway Pressure (ICD-10-PCS; 2023-01-04)
PROC: 5A1D70Z Performance of Urinary Filtration, Intermittent, Less than 6 Hours Per Day (ICD-10-PCS; principal; 2023-01-05)
PROC: 5A09357 Assistance with Respiratory Ventilation, Less than 24 Consecutive Hours, Continuous Positive Airway Pressure (ICD-10-PCS; 2023-01-05)
PROC: 5A09357 Assistance with Respiratory Ventilation, Less than 24 Consecutive Hours, Continuous Positive Airway Pressure (ICD-10-PCS; 2023-01-06)
PROC: 5A09357 Assistance with Respiratory Ventilation, Less than 24 Consecutive Hours, Continuous Positive Airway Pressure (ICD-10-PCS; 2023-01-07)
PROC: 5A1D70Z Performance of Urinary Filtration, Intermittent, Less than 6 Hours Per Day (ICD-10-PCS; 2023-01-08)
DX: A41.9 Sepsis, unspecified organism (principal); N18.6 End stage renal disease; R65.21 Severe sepsis with septic shock; E87.21 Acute metabolic acidosis; I48.20 Chronic atrial fibrillation, unspecified; E46 Unspecified protein-calorie malnutrition; I50.20 Unspecified systolic (congestive) heart failure; Z68.41 Body mass index [BMI] 40.0-44.9, adult; I13.2 Hypertensive heart and chronic kidney disease with heart failure and with stage 5 chronic kidney disease, or end stage renal disease; Z66 Do not resuscitate; D63.8 Anemia in other chronic diseases classified elsewhere; E03.9 Hypothyroidism, unspecified; G47.30 Sleep apnea, unspecified; Z96.649 Presence of unspecified artificial hip joint; K52.9 Noninfective gastroenteritis and colitis, unspecified; J44.9 Chronic obstructive pulmonary disease, unspecified; K82.8 Other specified diseases of gallbladder; F17.210 Nicotine dependence, cigarettes, uncomplicated; H91.90 Unspecified hearing loss, unspecified ear; I25.10 Atherosclerotic heart disease of native coronary artery without angina pectoris; E78.00 Pure hypercholesterolemia, unspecified; E87.5 Hyperkalemia; Z79.01 Long term (current) use of anticoagulants; Z79.899 Other long term (current) drug therapy; Z82.49 Family history of ischemic heart disease and other diseases of the circulatory system; Z85.828 Personal history of other malignant neoplasm of skin; Z90.710 Acquired absence of both cervix and uterus; Z99.2 Dependence on renal dialysis; Z78.9 Other specified health status; I25.2 Old myocardial infarction
CPT/HCPCS: 36415; 71045; 74176; 76705; 78226; 80048; 80053; 80202; 82962; 83605; 83735; 84100; 84484; 85025; 87040; 87045; 87427; 87493; 90935; 93005; 94660; G0378; J0696; J1642; J2543; J3490; J7060

== ENCOUNTER → 2023-01-21 | Outpatient (CLI) | payer MEDICARE, OTHER ==
[~2023-01-21] MED LIST changes: +LEVO500T91 PO; +LOPE7.5C PO; +MET500T PO
[2023-01-21 09:01] LABS: Basophils # (auto) 0 10 ^3/uL (0-0.2); Basophils % (auto) 0.7 % (0.0-2.0); Eosinophils # (auto) 0.3 10 ^3/uL (0-0.8); Eosinophils % (auto) 4.5 % (0.0-7.0); Hematocrit 36.3 % (36.0-46.0); Hemoglobin 11.8 g/dL (12.2-16.2); Lymphocytes # (auto) 1.1 10 ^3/uL (0.4-5.4); Lymphocytes % (auto) 15.7 % (10.0-50.0); Mean Corpuscular Hemoglobin 29.5 pg (28.0-32.0); Mean Corpuscular Hgb Conc. 32.4 g/dL (32.0-36.0); Monocytes # (auto) 0.5 10 ^3/uL (0-1.3); Monocytes % (auto) 7.6 % (0.0-12.0); Neutrophils # (auto) 4.8 10 ^3/uL (1.6-8.6); Neutrophils % (auto) 71.5 % (37.0-80.0); Red Blood Cells 3.99 10^6/uL (4.0-5.20); Red Cell Distribution Width 19.1 % (11.8-14.3); White Blood Cell 6.7 10^3/uL (4.4-10.8)
[2023-01-21 09:16] LABS: INR 1.45 (0.9-1.15); Prothrombin Time 14.9 sec (9.3-11.8)
[2023-01-21 09:38] LABS: Erythrocyte Sedimentation Rate 36 mm/hr (0-20)
[2023-01-21 09:54] LABS: Alanine Aminotransferase < 9 U/L (7-40); Alkaline Phosphatase 101 U/L (46-116); Anion Gap 9.2 (5-15); Aspartate Aminotransferase 13 U/L (13-40); BUN/Creatinine Ratio 5.1 (10.0-20.0); Bilirubin, Total 0.5 mg/dL (0.2-1.0); Blood Urea Nitrogen 31 mg/dL (9-23); Calcium 8.4 mg/dL (8.5-10.1); Carbon Dioxide 28.8 mmol/L (20-30); Chloride 100 mmol/L (98-107); Cholesterol 93 mg/dL (< 200); Glucose 87 mg/dL (74-106); HDL Cholesterol 41 mg/dL (40-59); LDL Cholesterol 33 mg/dL (< 100); Magnesium 1.8 mg/dL (1.6-2.6); Potassium 3.8 mmol/L (3.5-5.1); Sodium 138 mmol/L (136-145); Total Protein 6.5 g/dL (5.7-8.2); Triglycerides 71 mg/dL (< 150)
== END | disposition home or self-care (01) ==
LOC: LAB 08:03
PROVIDERS: ATTEND Internal Medicine
DX: Z01.812 Encounter for preprocedural laboratory examination (principal); I10 Essential (primary) hypertension; I48.91 Unspecified atrial fibrillation
CPT/HCPCS: 36415; 80053; 80061; 83735; 84439; 84443; 85025; 85610; 85652

== ENCOUNTER → 2023-01-23 | Outpatient (CLI) | payer MEDICARE, OTHER ==
[~2023-01-23] MED LIST changes: +ALLO100T PO; +APIX2.5T PO; +ATOR-47 PO; +FURO1TAB32 PO; +LEVO150T10 PO; +METO25TA36 PO; +MIRT-94 PO; +SEVE800T8 PO; +TRAV0.00 EACHEYE; +TRAV0.0013 EACHEYE
[2023-01-23 14:50] LABS: Hepatitis B Surface Antibody Negative (Negative)
[2023-01-23 15:01] LABS: Hepatitis B Surface Antigen Negative (Negative)
[2023-01-23 15:17] LABS: % Iron Saturation 37.6 % (15-50)
[2023-01-23 15:22] LABS: Hepatitis A Ab IgM Negative
[2023-01-23 15:23] LABS: Hepatitis B Core IgM Negative
[2023-01-23 15:24] LABS: Hepatitis C Antibody Negative (Negative)
[2023-01-23 15:29] LABS: Hepatitis A Total Antibody Positive (Negative)
[2023-01-24 10:07] LABS: Anti-Nuclear Antibody Direct Negative (Negative); Hepatitis B Core Total Antibod Negative (Negative)
[2023-01-25 13:06] LABS: Mitochondrial (M2) Antibody <20.0 Units (0.0-20.0)
== END | disposition home or self-care (01) ==
LOC: LAB 13:07
PROVIDERS: ATTEND Internal Medicine
DX: N18.6 End stage renal disease (principal); R19.7 Diarrhea, unspecified; R89.9 Unspecified abnormal finding in specimens from other organs, systems and tissues; R94.5 Abnormal results of liver function studies
CPT/HCPCS: 36415; 82140; 83540; 83550; 86038; 86705; 86706; 86708; 86709; 86803; 87340

== ENCOUNTER 2023-02-12 16:52 | Inpatient (IN) | payer MEDICARE, OTHER ==
[~2023-02-12] VITALS: Ht 157.5 cm; Wt 75.6 kg
[~2023-02-12 16:52] MED LIST changes: -ALLO100T PO; -APIX2.5T PO; -ATOR-47 PO; -FURO1TAB32 PO; -LEVO150T10 PO; -METO25TA36 PO; -MIRT-94 PO; -SEVE800T8 PO; -TRAV0.00 EACHEYE; -TRAV0.0013 EACHEYE
[2023-02-12 17:49] LABS: Basophils # (auto) 0 10 ^3/uL (0-0.2); Basophils % (auto) 0.2 % (0.0-2.0); Eosinophils # (auto) 0 10 ^3/uL (0-0.8); Eosinophils % (auto) 0.1 % (0.0-7.0); Hematocrit 32.8 % (36.0-46.0); Hemoglobin 10.6 g/dL (12.2-16.2); Lymphocytes # (auto) 0.3 10 ^3/uL (0.4-5.4); Lymphocytes % (auto) 1.6 % (10.0-50.0); Mean Corpuscular Hemoglobin 29.6 pg (28.0-32.0); Mean Corpuscular Hgb Conc. 32.1 g/dL (32.0-36.0); Mean Corpuscular Volume 92.1 fL (80.0-100.0); Monocytes # (auto) 1.2 10 ^3/uL (0-1.3); Monocytes % (auto) 5.5 % (0.0-12.0); Neutrophils # (auto) 19.7 10 ^3/uL (1.6-8.6); Neutrophils % (auto) 92.6 % (37.0-80.0); Red Blood Cells 3.57 10^6/uL (4.0-5.20); White Blood Cell 21.2 10^3/uL (4.4-10.8)
[2023-02-12 17:51] LABS: Alanine Aminotransferase 210 U/L (7-40); Albumin 3.9 g/dL (3.2-4.8); Alkaline Phosphatase 147 U/L (46-116); Anion Gap 7 (5-15); Aspartate Aminotransferase 174 U/L (13-40); BUN/Creatinine Ratio 6.8 (10.0-20.0); Bilirubin, Total 0.6 mg/dL (0.2-1.0); Blood Urea Nitrogen 25 mg/dL (9-23); Calcium 8.3 mg/dL (8.7-10.4); Carbon Dioxide 26 mmol/L (20-30); Chloride 105 mmol/L (98-107); Glucose 134 mg/dL (74-106); Magnesium 1.7 mg/dL (1.6-2.6); Potassium 3.2 mmol/L (3.5-5.1); Sodium 138 mmol/L (136-145); Total Protein 5.9 g/dL (5.7-8.2)
[2023-02-12 17:54] LABS: Red Cell Distribution Width 20.7 % (11.8-14.3)
[2023-02-12 18:06] VITALS: PULSE 150; RESP 20; O2SAT 96
[2023-02-12] MEDS ORDERED: ACETAMINOPHEN 325 MG TAB PO ONE (18:15)
[2023-02-12] MEDS ORDERED: PIPERACILLIN-TAZOB 3.375GM 100 ML IV ONE (18:15)
[2023-02-12] MEDS ORDERED: FUROSEMIDE 20 MG/2 ML VIAL IV ONE (18:30)
[2023-02-12] MEDS ORDERED: dilTIAZem 25 MG/5 ML VIAL IV ONE (18:45)
[2023-02-12] MEDS ORDERED: dilTIAZem 125mg/125ml BAG KIT 125 ML IV ONE (19:45)
[2023-02-12 20:05] VITALS: PULSE 149; RESP 25; O2SAT 98
[2023-02-12] MEDS ORDERED: IBUPROFEN 600 MG TAB PO ONE (20:30)
[2023-02-12] MEDS ORDERED: AZITHROMYCIN 500MG/ 250ML 250 ML IV ONE (20:45)
[2023-02-12] MEDS ORDERED: ONDANSETRON HCL 4 MG/2 ML VIAL IV PRN (20:45)
[2023-02-12] MEDS ORDERED: NITROGLYCERIN 0.4 MG SL TAB SL PRN (20:45)
[2023-02-12] MEDS ORDERED: MORPHINE SULFATE INJ 2 MG/ml SYRG IV PRN (20:45)
[2023-02-12 21:17] LABS: Rapid Influenza A Negative (Negative); Rapid Influenza B Negative (Negative)
[2023-02-12] MEDS: APIXABAN 2.5 MG TAB PO SCH (21:30)
[2023-02-12] MEDS ORDERED: ATORVASTATIN 20 MG TAB PO SCH (22:00)
[2023-02-12] MEDS ORDERED: AMIODARONE BOLUS KIT 100 ML IV ONE (22:15)
[2023-02-12] MEDS ORDERED: AMIODARONE 450mg/250ml AE 250 ML IV SCH (22:15)
[2023-02-13] VITALS (82 sets, daily range): BP systolic 81–134; BP diastolic 37–93; PULSE 59–90; RESP 8–27; TEMP 97.5–98.9; O2SAT 81–100
[2023-02-13 01:41] LABS: COVID19 ANTIGEN SOFIA FIA NEGATIVE (NEGATIVE)
[2023-02-13] MEDS: AMIODARONE 450mg/250ml AE 250 ML IV SCH ×2 (04:16→20:19)
[2023-02-13 04:38] LABS: Basophils # (auto) 0 10 ^3/uL (0-0.2); Basophils % (auto) 0.2 % (0.0-2.0); Eosinophils # (auto) 0 10 ^3/uL (0-0.8); Eosinophils % (auto) 0.1 % (0.0-7.0); Hemoglobin 9.9 g/dL (12.2-16.2); Lymphocytes # (auto) 0.7 10 ^3/uL (0.4-5.4); Lymphocytes % (auto) 3.3 % (10.0-50.0); Mean Corpuscular Hemoglobin 29.7 pg (28.0-32.0); Monocytes # (auto) 0.8 10 ^3/uL (0-1.3); Monocytes % (auto) 3.8 % (0.0-12.0); Neutrophils # (auto) 18.8 10 ^3/uL (1.6-8.6); Neutrophils % (auto) 92.6 % (37.0-80.0); Red Blood Cells 3.34 10^6/uL (4.0-5.20); White Blood Cell 20.4 10^3/uL (4.4-10.8)
[2023-02-13 05:00] LABS: Alanine Aminotransferase 173 U/L (7-40); Albumin 3.6 g/dL (3.2-4.8); Alkaline Phosphatase 119 U/L (46-116); Anion Gap 9 (5-15); Aspartate Aminotransferase 128 U/L (13-40); Blood Urea Nitrogen 22 mg/dL (9-23); Calcium 7.5 mg/dL (8.7-10.4); Carbon Dioxide 24 mmol/L (20-30); Chloride 100 mmol/L (98-107); Glucose 211 mg/dL (74-106); Potassium 3.3 mmol/L (3.5-5.1)
[2023-02-13 05:01] LABS: Bilirubin, Total 0.5 mg/dL (0.2-1.0); Total Protein 5.6 g/dL (5.7-8.2)
[2023-02-13 05:06] LABS: Sodium 133 mmol/L (136-145)
[2023-02-13] MEDS: LEVOTHYROXINE SODIUM 50 MCG TAB PO SCH (06:36)
[2023-02-13] MEDS: cefTRIAXone 1GM/50ML D5W 50 ML IV SCH (09:20)
[2023-02-13] MEDS: ALLOPURINOL 100 MG TAB PO SCH (09:20)
[2023-02-13] MEDS: APIXABAN 2.5 MG TAB PO SCH ×2 (09:20→21:35)
[2023-02-13] MEDS: METOPROLOL SUCCINATE XL 50 MG TAB PO SCH (09:21)
[2023-02-13] MEDS: SEVELAMER 800 MG TAB PO SCH ×3 (09:21→17:32)
[2023-02-13] MEDS ORDERED: AZITHROMYCIN 500MG/ 250ML 250 ML IV SCH (10:00)
[2023-02-13] MEDS ORDERED: FUROSEMIDE 40 MG TAB PO SCH (10:00)
[2023-02-13] MEDS ORDERED: NIFEdipine ER 30 MG TAB PO SCH (10:00)
[2023-02-13] MEDS ORDERED: POTASSIUM EFFERVESENT TAB 25 MEQ GT ONE (13:15)
[2023-02-13] MEDS ORDERED: VANCOMYCIN PER PHARMACY 0 MG IV SCH (13:15)
[2023-02-13] MEDS ORDERED: VANCOMYCIN 1GM/250ML 250 ML IV ONE (13:15)
[2023-02-13] MEDS ORDERED: HEPARIN 1,000 UNITS/ml 1ML VIAL IV ONE (14:00)
[2023-02-13] MEDS ORDERED: POTASSIUM EFFERVESENT TAB 25 MEQ PO ONE (14:30)
[2023-02-13] MEDS: metroNIDAZOLE 500 MG TAB PO SCH ×2 (14:56→21:35)
[2023-02-13] MEDS ORDERED: TRAV0.0013 EACHEYE (15:14)
[2023-02-13] MEDS ORDERED: FURO1TAB32 PO (16:31)
[2023-02-13] MEDS ORDERED: ALLO100T PO (16:31)
[2023-02-13] MEDS ORDERED: METO25TA36 PO (16:31)
[2023-02-13] MEDS ORDERED: LEVO150T10 PO (16:31)
[2023-02-13] MEDS ORDERED: MIRT-94 PO (16:31)
[2023-02-13] MEDS ORDERED: TRAV0.00 EACHEYE (16:31)
[2023-02-13] MEDS ORDERED: APIX2.5T PO (16:31)
[2023-02-13] MEDS ORDERED: ATOR-47 PO (16:31)
[2023-02-13] MEDS ORDERED: SEVE800T8 PO (16:31)
[2023-02-13] MEDS: TRAVOPROST 0.004% OP SCH (21:36)
[2023-02-13] MEDS ORDERED: PATIENTS OWN MEDICATION OP SCH (22:00)
[2023-02-14] VITALS (63 sets, daily range): BP systolic 107–156; BP diastolic 45–73; PULSE 66–127; RESP 9–24; TEMP 98.3–100.8; O2SAT 89–100
[2023-02-14 04:37] LABS: Basophils # (auto) 0 10 ^3/uL (0-0.2); Basophils % (auto) 0.1 % (0.0-2.0); Eosinophils # (auto) 0 10 ^3/uL (0-0.8); Eosinophils % (auto) 0.1 % (0.0-7.0); Hematocrit 29.3 % (36.0-46.0); Hemoglobin 9.3 g/dL (12.2-16.2); Lymphocytes # (auto) 0.5 10 ^3/uL (0.4-5.4); Lymphocytes % (auto) 1.9 % (10.0-50.0); Mean Corpuscular Hemoglobin 29.6 pg (28.0-32.0); Mean Corpuscular Hgb Conc. 31.7 g/dL (32.0-36.0); Mean Corpuscular Volume 93.3 fL (80.0-100.0); Monocytes # (auto) 0.9 10 ^3/uL (0-1.3); Monocytes % (auto) 3.9 % (0.0-12.0); Neutrophils # (auto) 22.4 10 ^3/uL (1.6-8.6); Red Blood Cells 3.14 10^6/uL (4.0-5.20); White Blood Cell 23.8 10^3/uL (4.4-10.8)
[2023-02-14 04:44] LABS: Red Cell Distribution Width 21.3 % (11.8-14.3)
[2023-02-14 05:07] LABS: Alanine Aminotransferase 122 U/L (7-40); Albumin 3.4 g/dL (3.2-4.8); Alkaline Phosphatase 112 U/L (46-116); Anion Gap 11 (5-15); Aspartate Aminotransferase 44 U/L (13-40); Bilirubin, Total 0.5 mg/dL (0.2-1.0); Blood Urea Nitrogen 28 mg/dL (9-23); Calcium 7.7 mg/dL (8.5-10.1); Carbon Dioxide 23 mmol/L (20-30); Chloride 97 mmol/L (98-107); Glucose 99 mg/dL (74-106); Potassium 4.1 mmol/L (3.5-5.1); Sodium 131 mmol/L (136-145); Total Protein 5.5 g/dL (5.7-8.2)
[2023-02-14] MEDS: metroNIDAZOLE 500 MG TAB PO SCH ×3 (06:23→21:14)
[2023-02-14] MEDS: LEVOTHYROXINE SODIUM 50 MCG TAB PO SCH (06:23)
[2023-02-14] MEDS ORDERED: SODIUM CHL 0.9% 1000 ML BAG XX ONE (07:00)
[2023-02-14] MEDS: ACETAMINOPHEN 325 MG TAB PO PRN (09:24)
[2023-02-14] MEDS ORDERED: MAGNESIUM SULFATE 1GM/100ML 100 ML IV ONE (09:30)
[2023-02-14] MEDS ORDERED: METOPROLOL TARTRATE 1MG/1ML-5ML VIAL IV ONE (10:30)
[2023-02-14] MEDS: AMIODARONE 450mg/250ml AE 250 ML IV SCH (10:33)
[2023-02-14] MEDS: SEVELAMER 800 MG TAB PO SCH ×3 (12:00→18:34)
[2023-02-14] MEDS: cefTRIAXone 1GM/50ML D5W 50 ML IV SCH (13:05)
[2023-02-14] MEDS: APIXABAN 2.5 MG TAB PO SCH ×2 (13:06→21:14)
[2023-02-14] MEDS: METOPROLOL SUCCINATE XL 50 MG TAB PO SCH (13:06)
[2023-02-14] MEDS: FLORASTOR (S. BOULARDII) 250 MG CAP PO SCH (13:08)
[2023-02-14] MEDS: ALLOPURINOL 100 MG TAB PO SCH (13:09)
[2023-02-14] MEDS: VANCOMYCIN HCL 500MG/5ML ORAL SOL GT SCH ×2 (18:36→21:13)
[2023-02-14] MEDS ORDERED: EPOETIN ALFA-EPBX 10,000 UNIT/1ML VIAL SC ONE (21:00)
[2023-02-14] MEDS: TRAVOPROST 0.004% OP SCH (21:13)
[2023-02-15] VITALS (63 sets, daily range): BP systolic 98–139; BP diastolic 39–74; PULSE 59–116; RESP 9–22; TEMP 97.8–98.9; O2SAT 93–100
[2023-02-15] MEDS: AMIODARONE 450mg/250ml AE 250 ML IV SCH ×2 (00:34→13:54)
[2023-02-15 04:04] LABS: Hematocrit 28.9 % (36.0-46.0); Hemoglobin 9.2 g/dL (12.2-16.2); Mean Corpuscular Hemoglobin 29.4 pg (28.0-32.0); Mean Corpuscular Hgb Conc. 31.8 g/dL (32.0-36.0); Mean Corpuscular Volume 92.5 fL (80.0-100.0); Red Blood Cells 3.12 10^6/uL (4.0-5.20)
[2023-02-15 04:08] LABS: Basophils % (manual) 0 (0.0-2.0); Blast Cells 0; Metamyelocytes % 0; Myelocytes % 0; Promyelocytes % 0; Reactive Lymphocytes 0
[2023-02-15 04:14] LABS: Chloride 99 mmol/L (98-107); Potassium 3.9 mmol/L (3.5-5.1); Sodium 132 mmol/L (136-145)
[2023-02-15 04:15] LABS: Anion Gap 7 (5-15); Calcium 8.2 mg/dL (8.7-10.4); Carbon Dioxide 26 mmol/L (20-30)
[2023-02-15 04:20] LABS: BUN/Creatinine Ratio 4.5 (10.0-20.0); Blood Urea Nitrogen 18 mg/dL (9-23); Glucose 106 mg/dL (74-106)
[2023-02-15 04:43] LABS: Band Neutrophils % (manual) 3; Eosinophils % (manual) 2 (0-7); Lymphocytes % (manual) 6 (10.0-50.0); Monocytes % (manual) 8 (0-12)
[2023-02-15 04:44] LABS: Platelet Estimate Adequate
[2023-02-15] MEDS: metroNIDAZOLE 500 MG TAB PO SCH ×3 (06:25→21:47)
[2023-02-15] MEDS: LEVOTHYROXINE SODIUM 50 MCG TAB PO SCH (06:25)
[2023-02-15] MEDS: VANCOMYCIN HCL 500MG/5ML ORAL SOL GT SCH ×4 (06:26→21:48)
[2023-02-15] MEDS: SEVELAMER 800 MG TAB PO SCH ×3 (09:41→17:33)
[2023-02-15] MEDS: cefTRIAXone 1GM/50ML D5W 50 ML IV SCH (09:42)
[2023-02-15] MEDS: METOPROLOL SUCCINATE XL 50 MG TAB PO SCH (09:42)
[2023-02-15] MEDS: APIXABAN 2.5 MG TAB PO SCH ×2 (09:42→21:47)
[2023-02-15] MEDS: ALLOPURINOL 100 MG TAB PO SCH (09:43)
[2023-02-15] MEDS: FLORASTOR (S. BOULARDII) 250 MG CAP PO SCH (09:43)
[2023-02-15] MEDS ORDERED: VANCOMYCIN 750mg/250ml 250 ML IV ONE (14:00)
[2023-02-15] MEDS ORDERED: FUROSEMIDE 40 MG/4 ML VIAL IV ONE (16:30)
[2023-02-15] MEDS: TRAVOPROST 0.004% OP SCH (21:48)
[2023-02-16] VITALS (55 sets, daily range): BP systolic 110–151; BP diastolic 46–119; PULSE 56–106; RESP 9–20; TEMP 97.6–98.9; O2SAT 96–100
[2023-02-16 03:46] LABS: Basophils # (auto) 0.1 10 ^3/uL (0-0.2); Basophils % (auto) 0.4 % (0.0-2.0); Eosinophils # (auto) 1.2 10 ^3/uL (0-0.8); Eosinophils % (auto) 4.7 % (0.0-7.0); Hematocrit 30.8 % (36.0-46.0); Hemoglobin 9.9 g/dL (12.2-16.2); Lymphocytes # (auto) 1.3 10 ^3/uL (0.4-5.4); Mean Corpuscular Hemoglobin 30.1 pg (28.0-32.0); Mean Corpuscular Hgb Conc. 32.3 g/dL (32.0-36.0); Mean Corpuscular Volume 93.2 fL (80.0-100.0); Monocytes # (auto) 0.6 10 ^3/uL (0-1.3); Monocytes % (auto) 2.5 % (0.0-12.0); Neutrophils # (auto) 21.8 10 ^3/uL (1.6-8.6); Neutrophils % (auto) 87.4 % (37.0-80.0); Red Blood Cells 3.31 10^6/uL (4.0-5.20); Red Cell Distribution Width 20.7 % (11.8-14.3)
[2023-02-16 03:49] LABS: Anion Gap 9 (5-15); Calcium 8.4 mg/dL (8.7-10.4); Carbon Dioxide 25 mmol/L (20-30); Chloride 94 mmol/L (98-107); Potassium 4.1 mmol/L (3.5-5.1); Sodium 128 mmol/L (136-145)
[2023-02-16 03:55] LABS: BUN/Creatinine Ratio 5.3 (10.0-20.0); Blood Urea Nitrogen 27 mg/dL (9-23); Glucose 97 mg/dL (74-106)
[2023-02-16] MEDS ORDERED: VANCOMYCIN HCL 500MG/5ML ORAL SOL PO SCH (06:00)
[2023-02-16] MEDS: LEVOTHYROXINE SODIUM 50 MCG TAB PO SCH (06:14)
[2023-02-16] MEDS: metroNIDAZOLE 500MG/100ML 100 ML IV SCH ×3 (06:15→21:13)
[2023-02-16] MEDS: AMIODARONE 450mg/250ml AE 250 ML IV SCH (06:15)
[2023-02-16] MEDS ORDERED: FUROSEMIDE 40 MG/4 ML VIAL IV ONE (07:30)
[2023-02-16] MEDS: SEVELAMER 800 MG TAB PO SCH ×3 (08:29→17:49)
[2023-02-16] MEDS: VANCOMYCIN HCL 125MG/5ML ORAL SOL PO SCH ×4 (08:29→21:14)
[2023-02-16] MEDS: cefTRIAXone 1GM/50ML D5W 50 ML IV SCH (09:02)
[2023-02-16] MEDS: ALLOPURINOL 100 MG TAB PO SCH (09:53)
[2023-02-16] MEDS: AMIODARONE HCL 200 MG TAB PO SCH ×2 (09:53→21:13)
[2023-02-16] MEDS: FLORASTOR (S. BOULARDII) 250 MG CAP PO SCH (09:53)
[2023-02-16] MEDS: APIXABAN 2.5 MG TAB PO SCH ×2 (09:53→21:12)
[2023-02-16] MEDS: METOPROLOL SUCCINATE XL 50 MG TAB PO SCH (10:00)
[2023-02-16] MEDS ORDERED: FUROSEMIDE 20 MG/2 ML VIAL IV SCH (10:00)
[2023-02-16] MEDS: FUROSEMIDE 40 MG/4 ML VIAL IV SCH (17:49)
[2023-02-16] MEDS: TRAVOPROST 0.004% OP SCH (21:13)
[2023-02-17] VITALS (32 sets, daily range): BP systolic 101–137; BP diastolic 47–98; PULSE 59–115; RESP 11–19; TEMP 97.7–98.7; O2SAT 93–100
[2023-02-17 05:35] LABS: Basophils # (auto) 0.1 10 ^3/uL (0-0.2); Basophils % (auto) 0.5 % (0.0-2.0); Eosinophils # (auto) 1.1 10 ^3/uL (0-0.8); Eosinophils % (auto) 7.8 % (0.0-7.0); Hematocrit 30.5 % (36.0-46.0); Lymphocytes # (auto) 1.4 10 ^3/uL (0.4-5.4); Lymphocytes % (auto) 9.5 % (10.0-50.0); Mean Corpuscular Hemoglobin 30.3 pg (28.0-32.0); Mean Corpuscular Volume 91.8 fL (80.0-100.0); Monocytes # (auto) 0.6 10 ^3/uL (0-1.3); Monocytes % (auto) 3.9 % (0.0-12.0); Neutrophils # (auto) 11.3 10 ^3/uL (1.6-8.6); Neutrophils % (auto) 78.3 % (37.0-80.0); Nucleated Red Blood Cells % 0.1 %; Red Blood Cells 3.32 10^6/uL (4.0-5.20); White Blood Cell 14.4 10^3/uL (4.4-10.8)
[2023-02-17 05:43] LABS: Anion Gap 10 (5-15); Carbon Dioxide 26 mmol/L (20-30); Chloride 93 mmol/L (98-107); Potassium 4.2 mmol/L (3.5-5.1); Sodium 129 mmol/L (136-145)
[2023-02-17 05:44] LABS: Calcium 8.3 mg/dL (8.5-10.1)
[2023-02-17 05:49] LABS: BUN/Creatinine Ratio 5.1 (10.0-20.0); Blood Urea Nitrogen 30 mg/dL (9-23); Glucose 76 mg/dL (74-106)
[2023-02-17] MEDS: FUROSEMIDE 40 MG/4 ML VIAL IV SCH (06:08)
[2023-02-17] MEDS: metroNIDAZOLE 500MG/100ML 100 ML IV SCH ×3 (06:08→21:09)
[2023-02-17] MEDS: VANCOMYCIN HCL 125MG/5ML ORAL SOL PO SCH ×3 (06:09→18:24)
[2023-02-17] MEDS: LEVOTHYROXINE SODIUM 50 MCG TAB PO SCH (06:09)
[2023-02-17] MEDS ORDERED: SODIUM CHL 0.9% 1000 ML BAG XX ONE (07:00)
[2023-02-17] MEDS: cefTRIAXone 1GM/50ML D5W 50 ML IV SCH (10:05)
[2023-02-17] MEDS: SEVELAMER 800 MG TAB PO SCH ×3 (10:05→18:24)
[2023-02-17] MEDS: FLORASTOR (S. BOULARDII) 250 MG CAP PO SCH ×2 (10:06→21:15)
[2023-02-17] MEDS: METOPROLOL SUCCINATE XL 50 MG TAB PO SCH (10:06)
[2023-02-17] MEDS: ALLOPURINOL 100 MG TAB PO SCH (10:06)
[2023-02-17] MEDS: APIXABAN 2.5 MG TAB PO SCH ×2 (10:06→21:10)
[2023-02-17] MEDS: AMIODARONE HCL 200 MG TAB PO SCH ×2 (10:07→21:09)
[2023-02-17 11:01] LABS: Hepatitis B Surface Antibody Negative (Negative)
[2023-02-17 11:13] LABS: Hepatitis B Surface Antigen Negative (Negative)
[2023-02-17] MEDS ORDERED: EPOETIN ALFA-EPBX 4,000 UNIT/ML VIAL SC ONE (21:00)
[2023-02-17] MEDS: TRAVOPROST 0.004% OP SCH (21:10)
[2023-02-18] VITALS (12 sets, daily range): BP systolic 116–138; BP diastolic 60–83; PULSE 56–101; RESP 16–20; TEMP 97.6–98.3; O2SAT 91–99
[2023-02-18] MEDS: VANCOMYCIN HCL 125MG/5ML ORAL SOL PO SCH ×5 (01:17→23:11)
[2023-02-18 05:56] LABS: Basophils # (auto) 0.1 10 ^3/uL (0-0.2); Basophils % (auto) 0.5 % (0.0-2.0); Eosinophils # (auto) 0.9 10 ^3/uL (0-0.8); Eosinophils % (auto) 7.3 % (0.0-7.0); Hematocrit 30.3 % (36.0-46.0); Hemoglobin 9.8 g/dL (12.2-16.2); Lymphocytes # (auto) 1.3 10 ^3/uL (0.4-5.4); Lymphocytes % (auto) 10.9 % (10.0-50.0); Mean Corpuscular Hemoglobin 29.7 pg (28.0-32.0); Mean Corpuscular Hgb Conc. 32.4 g/dL (32.0-36.0); Mean Corpuscular Volume 91.7 fL (80.0-100.0); Monocytes # (auto) 0.5 10 ^3/uL (0-1.3); Monocytes % (auto) 4.1 % (0.0-12.0); Neutrophils # (auto) 9.2 10 ^3/uL (1.6-8.6); Neutrophils % (auto) 77.2 % (37.0-80.0); Red Blood Cells 3.31 10^6/uL (4.0-5.20)
[2023-02-18 06:01] LABS: Chloride 95 mmol/L (98-107); Potassium 4.4 mmol/L (3.5-5.1); Sodium 128 mmol/L (136-145)
[2023-02-18 06:02] LABS: Anion Gap 10 (5-15); Carbon Dioxide 23 mmol/L (20-30)
[2023-02-18 06:03] LABS: Calcium 8.3 mg/dL (8.5-10.1); Red Cell Distribution Width 20.5 % (11.8-14.3)
[2023-02-18 06:08] LABS: BUN/Creatinine Ratio 5.9 (10.0-20.0); Glucose 73 mg/dL (74-106)
[2023-02-18 06:09] LABS: Blood Urea Nitrogen 40 mg/dL (9-23)
[2023-02-18] MEDS: metroNIDAZOLE 500MG/100ML 100 ML IV SCH ×3 (06:28→22:02)
[2023-02-18] MEDS: LEVOTHYROXINE SODIUM 50 MCG TAB PO SCH (06:31)
[2023-02-18] MEDS: SEVELAMER 800 MG TAB PO SCH ×3 (08:11→18:00)
[2023-02-18] MEDS: AMIODARONE HCL 200 MG TAB PO SCH ×2 (09:56→22:01)
[2023-02-18] MEDS: ALLOPURINOL 100 MG TAB PO SCH (09:56)
[2023-02-18] MEDS: METOPROLOL SUCCINATE XL 50 MG TAB PO SCH (09:56)
[2023-02-18] MEDS: APIXABAN 2.5 MG TAB PO SCH ×2 (09:56→22:02)
[2023-02-18] MEDS: FLORASTOR (S. BOULARDII) 250 MG CAP PO SCH ×2 (09:56→22:02)
[2023-02-18] MEDS ORDERED: SODIUM CHL 0.9% 1000 ML BAG XX ONE (19:00)
[2023-02-18] MEDS: TRAVOPROST 0.004% OP SCH (22:02)
[2023-02-18] MEDS: CHOLESTYRAMINE 4 GM POWDER GT SCH (23:10)
[2023-02-19] VITALS (11 sets, daily range): BP systolic 111–125; BP diastolic 50–68; PULSE 66–113; RESP 17–20; TEMP 97.8–98.3; O2SAT 91–100
[2023-02-19 05:57] LABS: Basophils # (auto) 0.1 10 ^3/uL (0-0.2); Basophils % (auto) 1.1 % (0.0-2.0); Eosinophils # (auto) 0.6 10 ^3/uL (0-0.8); Eosinophils % (auto) 5.6 % (0.0-7.0); Hemoglobin 10.2 g/dL (12.2-16.2); Lymphocytes # (auto) 1.1 10 ^3/uL (0.4-5.4); Lymphocytes % (auto) 10.6 % (10.0-50.0); Mean Corpuscular Hemoglobin 30.4 pg (28.0-32.0); Mean Corpuscular Hgb Conc. 32.8 g/dL (32.0-36.0); Mean Corpuscular Volume 92.7 fL (80.0-100.0); Monocytes # (auto) 0.6 10 ^3/uL (0-1.3); Monocytes % (auto) 5.6 % (0.0-12.0); Neutrophils # (auto) 7.9 10 ^3/uL (1.6-8.6); Neutrophils % (auto) 77.1 % (37.0-80.0); Red Blood Cells 3.34 10^6/uL (4.0-5.20); White Blood Cell 10.2 10^3/uL (4.4-10.8)
[2023-02-19] MEDS: VANCOMYCIN HCL 125MG/5ML ORAL SOL PO SCH ×3 (06:02→18:22)
[2023-02-19] MEDS: LEVOTHYROXINE SODIUM 50 MCG TAB PO SCH (06:02)
[2023-02-19] MEDS: metroNIDAZOLE 500MG/100ML 100 ML IV SCH ×3 (06:02→21:47)
[2023-02-19 06:03] LABS: Calcium 8.3 mg/dL (8.5-10.1); Chloride 99 mmol/L (98-107); Potassium 3.5 mmol/L (3.5-5.1)
[2023-02-19 06:04] LABS: Anion Gap 9 (5-15); Carbon Dioxide 26 mmol/L (20-30)
[2023-02-19 06:08] LABS: Red Cell Distribution Width 20.9 % (11.8-14.3)
[2023-02-19 06:09] LABS: BUN/Creatinine Ratio 4.6 (10.0-20.0); Blood Urea Nitrogen 23 mg/dL (9-23); Glucose 74 mg/dL (74-106)
[2023-02-19 06:17] LABS: Sodium 134 mmol/L (136-145)
[2023-02-19] MEDS: APIXABAN 2.5 MG TAB PO SCH ×2 (08:16→21:32)
[2023-02-19] MEDS: SEVELAMER 800 MG TAB PO SCH ×3 (08:16→18:22)
[2023-02-19] MEDS: AMIODARONE HCL 200 MG TAB PO SCH ×2 (08:16→21:31)
[2023-02-19] MEDS: ALLOPURINOL 100 MG TAB PO SCH (08:16)
[2023-02-19] MEDS: METOPROLOL SUCCINATE XL 50 MG TAB PO SCH (08:17)
[2023-02-19] MEDS: FLORASTOR (S. BOULARDII) 250 MG CAP PO SCH ×2 (08:17→21:31)
[2023-02-19] MEDS: CHOLESTYRAMINE 4 GM POWDER GT SCH (11:20)
[2023-02-19] MEDS: TRAVOPROST 0.004% OP SCH (21:32)
[2023-02-20] VITALS (7 sets, daily range): BP systolic 116–141; BP diastolic 50–79; PULSE 62–98; RESP 18–20; TEMP 97.5–98.1; O2SAT 96–100
[2023-02-20] MEDS: LEVOTHYROXINE SODIUM 50 MCG TAB PO SCH (06:16)
[2023-02-20] MEDS ORDERED: SODIUM CHL 0.9% 1000 ML BAG XX ONE (07:00)
[2023-02-20] MEDS: SEVELAMER 800 MG TAB PO SCH ×3 (08:00→17:51)
[2023-02-20] MEDS: APIXABAN 2.5 MG TAB PO SCH (10:00)
[2023-02-20] MEDS: FLORASTOR (S. BOULARDII) 250 MG CAP PO SCH (10:00)
[2023-02-20] MEDS: AMIODARONE HCL 200 MG TAB PO SCH (10:00)
[2023-02-20] MEDS: ALLOPURINOL 100 MG TAB PO SCH (10:00)
[2023-02-20] MEDS: METOPROLOL SUCCINATE XL 50 MG TAB PO SCH (10:00)
[2023-02-20] MEDS: CHOLESTYRAMINE 4 GM POWDER GT SCH ×2 (11:00→12:00)
[2023-02-20] MEDS: VANCOMYCIN HCL 125MG/5ML ORAL SOL PO SCH ×2 (12:00→17:51)
[2023-02-20] MEDS: metroNIDAZOLE 500 MG TAB PO SCH (14:00)
[2023-02-20] MEDS: EPOETIN ALFA-EPBX 10,000 UNIT/1ML VIAL SC ONE (21:18)
[2023-02-21] VITALS (13 sets, daily range): BP systolic 109–155; BP diastolic 63–81; PULSE 55–100; RESP 16–20; TEMP 97.5–98.6; O2SAT 95–100
[2023-02-21] MEDS: metroNIDAZOLE 500 MG TAB PO SCH ×4 (00:11→21:53)
[2023-02-21] MEDS: FLORASTOR (S. BOULARDII) 250 MG CAP PO SCH ×3 (00:11→21:53)
[2023-02-21] MEDS: VANCOMYCIN HCL 125MG/5ML ORAL SOL PO SCH ×5 (00:12→23:24)
[2023-02-21] MEDS: APIXABAN 2.5 MG TAB PO SCH ×3 (00:12→21:53)
[2023-02-21] MEDS: ACETAMINOPHEN 325 MG TAB PO PRN (00:12)
[2023-02-21] MEDS: EPOETIN ALFA-EPBX 10,000 UNIT/1ML VIAL SC ONE (00:12)
[2023-02-21] MEDS: AMIODARONE HCL 200 MG TAB PO SCH ×3 (00:12→21:53)
[2023-02-21] MEDS: TRAVOPROST 0.004% OP SCH ×2 (00:12→21:53)
[2023-02-21] MEDS: CHOLESTYRAMINE 4 GM POWDER GT SCH ×3 (01:25→23:23)
[2023-02-21 06:00] LABS: Chloride 100 mmol/L (98-107); Potassium 3.3 mmol/L (3.5-5.1); Sodium 136 mmol/L (136-145)
[2023-02-21] MEDS: LEVOTHYROXINE SODIUM 50 MCG TAB PO SCH (06:00)
[2023-02-21 06:01] LABS: Anion Gap 7 (5-15); Calcium 8.5 mg/dL (8.7-10.4); Carbon Dioxide 29 mmol/L (20-30)
[2023-02-21 06:06] LABS: BUN/Creatinine Ratio 3.3 (10.0-20.0); Blood Urea Nitrogen 12 mg/dL (9-23); Glucose 78 mg/dL (74-106)
[2023-02-21 06:18] LABS: Basophils # (auto) 0.1 10 ^3/uL (0-0.2); Basophils % (auto) 1.1 % (0.0-2.0); Eosinophils # (auto) 0.4 10 ^3/uL (0-0.8); Eosinophils % (auto) 4.5 % (0.0-7.0); Hemoglobin 10.6 g/dL (12.2-16.2); Lymphocytes # (auto) 1.3 10 ^3/uL (0.4-5.4); Lymphocytes % (auto) 13.8 % (10.0-50.0); Mean Corpuscular Hgb Conc. 32.2 g/dL (32.0-36.0); Monocytes # (auto) 0.6 10 ^3/uL (0-1.3); Monocytes % (auto) 6.5 % (0.0-12.0); Neutrophils # (auto) 7.2 10 ^3/uL (1.6-8.6); Neutrophils % (auto) 74.1 % (37.0-80.0); Red Blood Cells 3.55 10^6/uL (4.0-5.20); White Blood Cell 9.7 10^3/uL (4.4-10.8)
[2023-02-21 06:32] LABS: Red Cell Distribution Width 20.6 % (11.8-14.3)
[2023-02-21] MEDS: ALLOPURINOL 100 MG TAB PO SCH (08:17)
[2023-02-21] MEDS: SEVELAMER 800 MG TAB PO SCH ×3 (08:17→18:25)
[2023-02-21] MEDS: METOPROLOL SUCCINATE XL 50 MG TAB PO SCH (08:18)
[2023-02-21] MEDS ORDERED: POTASSIUM EFFERVESENT TAB 25 MEQ PO ONE ×2 (14:15→15:15)
[2023-02-22] VITALS (11 sets, daily range): BP systolic 117–149; BP diastolic 47–64; PULSE 55–77; RESP 16–18; TEMP 97.4–98.3; O2SAT 93–100
[2023-02-22] MEDS: metroNIDAZOLE 500 MG TAB PO SCH ×3 (05:02→18:57)
[2023-02-22] MEDS: VANCOMYCIN HCL 125MG/5ML ORAL SOL PO SCH ×4 (05:02→23:06)
[2023-02-22] MEDS: LEVOTHYROXINE SODIUM 50 MCG TAB PO SCH (06:18)
[2023-02-22 06:21] LABS: Basophils # (auto) 0.1 10 ^3/uL (0-0.2); Basophils % (auto) 0.9 % (0.0-2.0); Eosinophils # (auto) 0.3 10 ^3/uL (0-0.8); Hematocrit 30.4 % (36.0-46.0); Lymphocytes # (auto) 1.8 10 ^3/uL (0.4-5.4); Mean Corpuscular Hemoglobin 31.1 pg (28.0-32.0); Mean Corpuscular Hgb Conc. 32.9 g/dL (32.0-36.0); Mean Corpuscular Volume 94.3 fL (80.0-100.0); Monocytes # (auto) 0.7 10 ^3/uL (0-1.3); Monocytes % (auto) 7.5 % (0.0-12.0); Neutrophils # (auto) 6.1 10 ^3/uL (1.6-8.6); Neutrophils % (auto) 68.6 % (37.0-80.0); Nucleated Red Blood Cells % 0.2 %; Red Blood Cells 3.23 10^6/uL (4.0-5.20); Red Cell Distribution Width 20.9 % (11.8-14.3); White Blood Cell 8.8 10^3/uL (4.4-10.8)
[2023-02-22 06:32] LABS: Anion Gap 8 (5-15); Carbon Dioxide 26 mmol/L (20-30); Chloride 98 mmol/L (98-107); Potassium 4.6 mmol/L (3.5-5.1); Sodium 132 mmol/L (136-145)
[2023-02-22 06:33] LABS: Calcium 8.6 mg/dL (8.7-10.4)
[2023-02-22 06:38] LABS: BUN/Creatinine Ratio 4.4 (10.0-20.0); Blood Urea Nitrogen 21 mg/dL (9-23); Glucose 94 mg/dL (74-106)
[2023-02-22] MEDS: METOPROLOL SUCCINATE XL 50 MG TAB PO SCH (10:00)
[2023-02-22] MEDS: FLORASTOR (S. BOULARDII) 250 MG CAP PO SCH ×2 (10:12→21:06)
[2023-02-22] MEDS: ALLOPURINOL 100 MG TAB PO SCH (10:12)
[2023-02-22] MEDS: AMIODARONE HCL 200 MG TAB PO SCH ×2 (10:13→21:07)
[2023-02-22] MEDS: APIXABAN 2.5 MG TAB PO SCH ×2 (10:13→21:07)
[2023-02-22] MEDS: SEVELAMER 800 MG TAB PO SCH ×3 (10:55→18:57)
[2023-02-22] MEDS: CHOLESTYRAMINE 4 GM POWDER GT SCH ×2 (10:55→23:06)
[2023-02-22] MEDS: TRAVOPROST 0.004% OP SCH (21:06)
[2023-02-23] VITALS (7 sets, daily range): BP systolic 125–147; BP diastolic 59–74; PULSE 60–107; RESP 16–20; TEMP 97.3–98.4; O2SAT 94–97
[2023-02-23] MEDS: metroNIDAZOLE 500 MG TAB PO SCH (05:45)
[2023-02-23] MEDS: VANCOMYCIN HCL 125MG/5ML ORAL SOL PO SCH (05:46)
[2023-02-23 06:11] LABS: Basophils # (auto) 0.1 10 ^3/uL (0-0.2); Basophils % (auto) 0.7 % (0.0-2.0); Eosinophils # (auto) 0.2 10 ^3/uL (0-0.8); Eosinophils % (auto) 1.8 % (0.0-7.0); Hematocrit 31.9 % (36.0-46.0); Hemoglobin 10.2 g/dL (12.2-16.2); Lymphocytes # (auto) 1.4 10 ^3/uL (0.4-5.4); Lymphocytes % (auto) 12.3 % (10.0-50.0); Mean Corpuscular Volume 93.7 fL (80.0-100.0); Monocytes # (auto) 0.7 10 ^3/uL (0-1.3); Monocytes % (auto) 5.5 % (0.0-12.0); Neutrophils # (auto) 9.4 10 ^3/uL (1.6-8.6); Neutrophils % (auto) 79.7 % (37.0-80.0); Nucleated Red Blood Cells % 0.1 %; White Blood Cell 11.8 10^3/uL (4.4-10.8)
[2023-02-23] MEDS: LEVOTHYROXINE SODIUM 50 MCG TAB PO SCH (06:20)
[2023-02-23 06:22] LABS: Red Cell Distribution Width 21.4 % (11.8-14.3)
[2023-02-23 06:29] LABS: Anion Gap 10 (5-15); Calcium 9.3 mg/dL (8.7-10.4); Carbon Dioxide 24 mmol/L (20-30); Chloride 97 mmol/L (98-107); Potassium 5.1 mmol/L (3.5-5.1); Sodium 131 mmol/L (136-145)
[2023-02-23 06:35] LABS: BUN/Creatinine Ratio 4.8 (10.0-20.0); Blood Urea Nitrogen 27 mg/dL (9-23); Glucose 77 mg/dL (74-106)
[2023-02-23] MEDS: SEVELAMER 800 MG TAB PO SCH (08:00)
[2023-02-23] MEDS ORDERED: SODIUM CHL 0.9% 1000 ML BAG XX ONE (09:00)
[2023-02-23] MEDS ORDERED: B-COMPLEX W/ C & FOLIC ACID(NEPHROVITE TAB) PO SCH (10:00)
[2023-02-23] MEDS ORDERED: Pro-Stat SF 30ml Vanilla PO SCH (10:00)
[2023-02-23] MEDS ORDERED: METOPROLOL SUCCINATE XL 50 MG TAB PO SCH (10:00)
[2023-02-23] MEDS ORDERED: CHOLESTYRAMINE 4 GM POWDER PO SCH (11:00)
[2023-02-23] MEDS: ALLOPURINOL 100 MG TAB PO SCH (11:36)
[2023-02-23] MEDS: AMIODARONE HCL 200 MG TAB PO SCH (11:36)
[2023-02-23] MEDS: FLORASTOR (S. BOULARDII) 250 MG CAP PO SCH (11:37)
[2023-02-23] MEDS: APIXABAN 2.5 MG TAB PO SCH (11:37)
[2023-02-23] MEDS ORDERED: SACC250C PO (11:49)
[2023-02-23] MEDS ORDERED: VANC125PO PO (11:49)
[2023-02-23] MEDS ORDERED: CHL4PW PO (11:49)
[2023-02-23] MEDS ORDERED: AMIO200T33 PO (11:50)
[2023-02-23] MEDS ORDERED: EPOETIN ALFA-EPBX 10,000 UNIT/1ML VIAL SC ONE (21:00)
== END 2023-02-23 16:00 | disposition home or self-care (01) | DRG 871 ==
LOC: ER 16:52 → EDBD 16:52 → EDUNIT# 16:52 → TELE 20:40 → ICU WEST 02-13 01:20 → TELE-EAST 02-17 21:31
PROVIDERS: ADMIT Nurse Practitioner; ATTEND Nurse Practitioner Acute Care
PROC: 5A09357 Assistance with Respiratory Ventilation, Less than 24 Consecutive Hours, Continuous Positive Airway Pressure (ICD-10-PCS; 2023-02-13)
PROC: 5A1D70Z Performance of Urinary Filtration, Intermittent, Less than 6 Hours Per Day (ICD-10-PCS; principal; 2023-02-14)
PROC: 5A09357 Assistance with Respiratory Ventilation, Less than 24 Consecutive Hours, Continuous Positive Airway Pressure (ICD-10-PCS; 2023-02-14)
PROC: 5A09357 Assistance with Respiratory Ventilation, Less than 24 Consecutive Hours, Continuous Positive Airway Pressure (ICD-10-PCS; 2023-02-15)
PROC: 5A09357 Assistance with Respiratory Ventilation, Less than 24 Consecutive Hours, Continuous Positive Airway Pressure (ICD-10-PCS; 2023-02-16)
PROC: 5A09357 Assistance with Respiratory Ventilation, Less than 24 Consecutive Hours, Continuous Positive Airway Pressure (ICD-10-PCS; 2023-02-17)
PROC: 5A1D70Z Performance of Urinary Filtration, Intermittent, Less than 6 Hours Per Day (ICD-10-PCS; 2023-02-18)
PROC: 5A09357 Assistance with Respiratory Ventilation, Less than 24 Consecutive Hours, Continuous Positive Airway Pressure (ICD-10-PCS; 2023-02-18)
PROC: 5A09357 Assistance with Respiratory Ventilation, Less than 24 Consecutive Hours, Continuous Positive Airway Pressure (ICD-10-PCS; 2023-02-19)
PROC: 5A1D70Z Performance of Urinary Filtration, Intermittent, Less than 6 Hours Per Day (ICD-10-PCS; 2023-02-20)
PROC: 5A09357 Assistance with Respiratory Ventilation, Less than 24 Consecutive Hours, Continuous Positive Airway Pressure (ICD-10-PCS; 2023-02-20)
PROC: 5A09357 Assistance with Respiratory Ventilation, Less than 24 Consecutive Hours, Continuous Positive Airway Pressure (ICD-10-PCS; 2023-02-21)
PROC: 5A09357 Assistance with Respiratory Ventilation, Less than 24 Consecutive Hours, Continuous Positive Airway Pressure (ICD-10-PCS; 2023-02-22)
PROC: 5A1D70Z Performance of Urinary Filtration, Intermittent, Less than 6 Hours Per Day (ICD-10-PCS; 2023-02-23)
PROC: 5A09357 Assistance with Respiratory Ventilation, Less than 24 Consecutive Hours, Continuous Positive Airway Pressure (ICD-10-PCS; 2023-02-23)
DX: A41.4 Sepsis due to anaerobes (principal); I21.A1 Myocardial infarction type 2; I50.33 Acute on chronic diastolic (congestive) heart failure; N18.6 End stage renal disease; J96.01 Acute respiratory failure with hypoxia; J15.69 Pneumonia due to other Gram-negative bacteria; J15.9 Unspecified bacterial pneumonia; J98.11 Atelectasis; A04.72 Enterocolitis due to Clostridium difficile, not specified as recurrent; I48.20 Chronic atrial fibrillation, unspecified; I13.2 Hypertensive heart and chronic kidney disease with heart failure and with stage 5 chronic kidney disease, or end stage renal disease; E87.1 Hypo-osmolality and hyponatremia; Z20.822 Contact with and (suspected) exposure to COVID-19; D63.1 Anemia in chronic kidney disease; E87.6 Hypokalemia; E03.9 Hypothyroidism, unspecified; M10.9 Gout, unspecified; E78.5 Hyperlipidemia, unspecified; K80.20 Calculus of gallbladder without cholecystitis without obstruction; R74.01 Elevation of levels of liver transaminase levels; I25.10 Atherosclerotic heart disease of native coronary artery without angina pectoris; R65.20 Severe sepsis without septic shock; I25.2 Old myocardial infarction; Z90.710 Acquired absence of both cervix and uterus; Z88.2 Allergy status to sulfonamides; Z82.49 Family history of ischemic heart disease and other diseases of the circulatory system
CPT/HCPCS: 36415; 71045; 80048; 80053; 80202; 83605; 83735; 83880; 84443; 84484; 85007; 85025; 85027; 85048; 86706; 87040; 87045; 87081; 87340; 87426; 87427; 87493; 87804; 90935; 93005; 94660; 97110; 97116; 97163; 97530; G0378; J0696; J1642; J2543; J3490

== ENCOUNTER → 2023-03-27 | Outpatient (CLI) | payer MEDICARE, OTHER ==
[~2023-03-27] MED LIST changes: +ALLO100T PO; +AMIO200T33 PO; -AMIO200T43 PO; +APIX2.5T PO; +ATOR-47 PO; -ATOR20TA50 PO; +CHL4PW PO; -DEXT1SYP9 PO; -DICL1GEL26 TD; -FER325T PO; +FURO1TAB32 PO; -HYDR-2549 PO; -LEVO125T59 PO; +LEVO150T10 PO; -LEVO500T91 PO; -LOPE7.5C PO; -MET25T PO; -MET500T PO; +METO25TA36 PO; -MIR30T PO; +MIRT-94 PO; -NIAC500T71 PO; -NYS5LQ MT; +SACC250C PO; +SEVE800T8 PO; +TRAV0.00 EACHEYE; +VANC125PO PO
[2023-03-27 09:19] LABS: Basophils # (auto) 0.1 10 ^3/uL (0-0.2); Basophils % (auto) 1.1 % (0.0-2.0); Eosinophils # (auto) 0.3 10 ^3/uL (0-0.8); Eosinophils % (auto) 5.6 % (0.0-7.0); Hematocrit 36.9 % (36.0-46.0); Hemoglobin 11.9 g/dL (12.2-16.2); Lymphocytes # (auto) 1.3 10 ^3/uL (0.4-5.4); Lymphocytes % (auto) 21.3 % (10.0-50.0); Mean Corpuscular Hemoglobin 31.8 pg (28.0-32.0); Mean Corpuscular Hgb Conc. 32.3 g/dL (32.0-36.0); Mean Corpuscular Volume 98.6 fL (80.0-100.0); Monocytes # (auto) 0.5 10 ^3/uL (0-1.3); Monocytes % (auto) 8.2 % (0.0-12.0); Neutrophils # (auto) 3.8 10 ^3/uL (1.6-8.6); Neutrophils % (auto) 63.8 % (37.0-80.0); Nucleated Red Blood Cells % 0.1 %; Red Blood Cells 3.74 10^6/uL (4.0-5.20); Red Cell Distribution Width 19.4 % (11.8-14.3)
[2023-03-27 09:40] LABS: Urine Blood 1+ /uL (Negative); Urine Clarity CLOUDY (Clear); Urine Color Yellow (Yellow); Urine Protein, UAD 1+ (Negative); Urine Specific Gravity 1.014 (1.001-1.035); Urine Urobilinogen Normal (Negative)
[2023-03-27 10:13] LABS: Alanine Aminotransferase 19 U/L (7-40); Albumin 4.3 g/dL (3.2-4.8); Alkaline Phosphatase 143 U/L (46-116); Anion Gap 11 (5-15); Aspartate Aminotransferase 23 U/L (13-40); BUN/Creatinine Ratio 4.5 (10.0-20.0); Bilirubin, Total 0.4 mg/dL (0.2-1.0); Blood Urea Nitrogen 18 mg/dL (9-23); Calcium 8.5 mg/dL (8.5-10.1); Carbon Dioxide 24 mmol/L (20-30); Chloride 105 mmol/L (98-107); Cholesterol 148 mg/dL (< 200); Glucose 86 mg/dL (74-106); HDL Cholesterol 90 mg/dL (40-59); LDL Cholesterol 32 mg/dL (< 100); Sodium 140 mmol/L (136-145); Total Protein 6.7 g/dL (5.7-8.2); Triglycerides 71 mg/dL (< 150)
[2023-03-27 10:43] LABS: Free T4 (Free Thyroxine) 1.48 ng/dL (0.89-1.76)
== END | disposition home or self-care (01) ==
LOC: LAB 09:01
PROVIDERS: ATTEND Internal Medicine Cardiovascular Disease
DX: E11.9 Type 2 diabetes mellitus without complications (principal); E55.9 Vitamin D deficiency, unspecified; I10 Essential (primary) hypertension; D51.3 Other dietary vitamin B12 deficiency anemia; R00.2 Palpitations; R53.1 Weakness; R30.0 Dysuria; D64.9 Anemia, unspecified
CPT/HCPCS: 36415; 80053; 80061; 81003; 82306; 82607; 83036; 84439; 84443; 85025

== ENCOUNTER 2023-05-18 00:55 | Inpatient (IN) | payer MEDICARE, OTHER ==
[~2023-05-18] VITALS: Ht 152.4 cm; Wt 58.9 kg
[2023-05-18] VITALS (7 sets, daily range): BP systolic 135–144; BP diastolic 42–88; PULSE 61–125; RESP 18–24; O2SAT 90–100
[2023-05-18] MEDS ORDERED: ALBUTEROL SULF 2.5 MG/0.5ML(0.5%) NEB SOLN ONE (01:03)
[2023-05-18] MEDS ORDERED: BUDESONIDE (INHALATION) 0.5 MG/2 ML NEB ONE (01:03)
[2023-05-18] MEDS ORDERED: DexAMETHasone SOD PHOS 10MG/1ML VIAL INJ IV ONE (01:15)
[2023-05-18] MEDS ORDERED: BUDESONIDE (INHALATION) 0.5 MG/2 ML NEB NEB ONE (01:15)
[2023-05-18] MEDS ORDERED: ALBUTEROL SULF 2.5 MG/0.5ML(0.5%) NEB SOLN NEB ONE (01:15)
[2023-05-18 01:38] LABS: Basophils # (auto) 0.1 10 ^3/uL (0-0.2); Basophils % (auto) 0.9 % (0.0-2.0); Eosinophils # (auto) 0 10 ^3/uL (0-0.8); Eosinophils % (auto) 0.4 % (0.0-7.0); Hematocrit 28.9 % (36.0-46.0); Hemoglobin 9.6 g/dL (12.2-16.2); Lymphocytes % (auto) 8.6 % (10.0-50.0); Mean Corpuscular Hgb Conc. 33.1 g/dL (32.0-36.0); Mean Corpuscular Volume 96.8 fL (80.0-100.0); Monocytes # (auto) 1.2 10 ^3/uL (0-1.3); Monocytes % (auto) 10.2 % (0.0-12.0); Neutrophils # (auto) 9.3 10 ^3/uL (1.6-8.6); Neutrophils % (auto) 79.9 % (37.0-80.0); Red Blood Cells 2.98 10^6/uL (4.0-5.20); Red Cell Distribution Width 16.4 % (11.8-14.3); White Blood Cell 11.7 10^3/uL (4.4-10.8)
[2023-05-18 01:58] LABS: INR 1.26 (0.9-1.15); Partial Thromboplastin Time 38.5 SEC (24.5-34.5)
[2023-05-18 02:38] LABS: Alanine Aminotransferase 23 U/L (7-40); Albumin 4.5 g/dL (3.2-4.8); Alkaline Phosphatase 164 U/L (46-116); Anion Gap 13 (5-15); Aspartate Aminotransferase 21 U/L (13-40); BUN/Creatinine Ratio 5.5 (10.0-20.0); Bilirubin, Total 0.4 mg/dL (0.2-1.0); Blood Urea Nitrogen 29 mg/dL (9-23); Calcium 8.4 mg/dL (8.7-10.4); Carbon Dioxide 22 mmol/L (20-30); Chloride 102 mmol/L (98-107); Glucose 149 mg/dL (74-106); Potassium 4.4 mmol/L (3.5-5.1); Sodium 137 mmol/L (136-145)
[2023-05-18 02:40] LABS: Lactic Acid w/Reflex 2.3 mmol/L (0.4-2.0)
[2023-05-18] MEDS ORDERED: PIPERACILLIN-TAZOB 3.375GM 100 ML IV ONE (02:45)
[2023-05-18] MEDS ORDERED: FUROSEMIDE 20 MG/2 ML VIAL IV ONE (03:15)
[2023-05-18] MEDS ORDERED: SODIUM CHL 0.9% 1000 ML BAG XX ONE (09:15)
[2023-05-18] MEDS ORDERED: ALBUMIN 25% 100 ML IV ONE ×2 (09:15→21:00)
[2023-05-18 09:31] LABS: COVID19 ANTIGEN SOFIA FIA NEGATIVE (NEGATIVE); Rapid Influenza A Negative (Negative); Rapid Influenza B Negative (Negative)
[2023-05-18] MEDS: PIPERACILLIN-TAZOB 3.375GM 100 ML IV SCH ×2 (14:00→23:56)
[2023-05-18 15:04] LABS: Urine Epithelial Cast None Seen /hpf (<5)
[2023-05-18 16:30] LABS: Urine Bacteria FEW /hpf (None Seen); Urine Blood 2+ /uL (Negative); Urine Clarity HAZY (Clear); Urine Color Yellow (Yellow); Urine Protein, UAD 3+ (Negative); Urine Specific Gravity 1.018 (1.001-1.035); Urine Urobilinogen Normal (Negative); Urine WBC 6 /hpf (0 - 5); Urine pH 6.5 (5.0-8.0)
[2023-05-18] MEDS ORDERED: EPOETIN ALFA-EPBX 10,000 UNIT/1ML VIAL SC ONE (21:00)
[2023-05-18] MEDS ORDERED: methylPREDNISolone SOD SUCC 125 MG/2 ML VL IV SCH (22:00)
[2023-05-19] VITALS (17 sets, daily range): BP systolic 106–181; BP diastolic 43–87; PULSE 63–112; RESP 17–26; TEMP 98.4–98.6; O2SAT 92–100
[2023-05-19] MEDS: IPRATROPIUM BROM 0.5 MG/2.5ML INH SOL NEB PRN (01:20)
[2023-05-19] MEDS: ALBUTEROL SULF 2.5 MG/0.5ML(0.5%) NEB SOLN NEB PRN (01:20)
[2023-05-19] MEDS ORDERED: LORazepam 2MG/ML-1ML VIAL IV ONE (02:30)
[2023-05-19] MEDS: PIPERACILLIN-TAZOB 3.375GM 100 ML IV SCH ×2 (05:47→15:00)
[2023-05-19 06:40] LABS: Anion Gap 10 (5-15); Carbon Dioxide 30 mmol/L (20-30); Chloride 101 mmol/L (98-107); Potassium 4.5 mmol/L (3.5-5.1); Sodium 141 mmol/L (136-145)
[2023-05-19 06:41] LABS: Calcium 8.9 mg/dL (8.5-10.1)
[2023-05-19 06:46] LABS: BUN/Creatinine Ratio 4.6 (10.0-20.0); Blood Urea Nitrogen 16 mg/dL (9-23); Glucose 194 mg/dL (74-106)
[2023-05-19 06:49] LABS: Basophils # (auto) 0 10 ^3/uL (0-0.2); Basophils % (auto) 0.1 % (0.0-2.0); Eosinophils # (auto) 0 10 ^3/uL (0-0.8); Hemoglobin 8.3 g/dL (12.2-16.2); White Blood Cell 16.3 10^3/uL (4.4-10.8)
[2023-05-19 06:56] LABS: Lymphocytes # (auto) 0.3 10 ^3/uL (0.4-5.4); Lymphocytes % (auto) 1.9 % (10.0-50.0); Mean Corpuscular Hemoglobin 31.4 pg (28.0-32.0); Mean Corpuscular Hgb Conc. 33.1 g/dL (32.0-36.0); Monocytes # (auto) 0.9 10 ^3/uL (0-1.3); Monocytes % (auto) 5.4 % (0.0-12.0); Neutrophils # (auto) 15.1 10 ^3/uL (1.6-8.6); Neutrophils % (auto) 92.6 % (37.0-80.0); Red Blood Cells 2.63 10^6/uL (4.0-5.20); Red Cell Distribution Width 16.3 % (11.8-14.3)
[2023-05-19 09:17] LABS: Hepatitis B Surface Antigen Negative (Negative)
[2023-05-19 09:38] LABS: Hepatitis A Ab IgM Negative
[2023-05-19 09:39] LABS: Hepatitis B Core IgM Negative; Hepatitis C Antibody Negative (Negative)
[2023-05-19] MEDS ORDERED: methylPREDNISolone SOD SUCC 125 MG/2 ML VL IV SCH (11:15)
[2023-05-19] MEDS ORDERED: FUROSEMIDE 100 MG/10ML VIAL IV ONE (11:15)
[2023-05-19] MEDS ORDERED: cloNIDine HCL 0.1 MG TAB PO SCH ×2 (11:15)
[2023-05-19] MEDS ORDERED: ATORVASTATIN 20 MG TAB PO ONE (11:15)
[2023-05-19] MEDS ORDERED: LEVOTHYROXINE SODIUM 50 MCG TAB PO ONE (11:15)
[2023-05-19] MEDS ORDERED: AMIODARONE HCL 200 MG TAB PO ONE (11:15)
[2023-05-19] MEDS ORDERED: cloNIDine HCL 0.1 MG TAB PO ONE ×2 (11:15→13:00)
[2023-05-19] MEDS ORDERED: PIPERACILLIN-TAZOB 3.375GM 100 ML IV SCH (16:15)
[2023-05-19] MEDS: FUROSEMIDE 100 MG/10ML VIAL IV SCH (18:09)
[2023-05-19] MEDS ORDERED: ASPirin 81 mg TAB PO ONE (19:00)
[2023-05-19] MEDS: cloNIDine HCL 0.1 MG TAB PO SCH (21:25)
[2023-05-19] MEDS: APIXABAN 2.5 MG TAB PO SCH (21:26)
[2023-05-19] MEDS: ATORVASTATIN 20 MG TAB PO SCH (21:26)
[2023-05-20] VITALS (12 sets, daily range): BP systolic 105–176; BP diastolic 43–77; PULSE 65–112; RESP 15–19; TEMP 97.1–98.5; O2SAT 92–99
[2023-05-20] MEDS: PIPERACILLIN-TAZOB 3.375GM 100 ML IV SCH ×2 (02:53→16:14)
[2023-05-20] MEDS: LEVOTHYROXINE SODIUM 112 MCG TAB PO SCH (05:55)
[2023-05-20] MEDS: LEVOTHYROXINE SODIUM 25 MCG TAB PO SCH (05:55)
[2023-05-20] MEDS: FUROSEMIDE 100 MG/10ML VIAL IV SCH ×2 (05:55→18:29)
[2023-05-20 06:12] LABS: Chloride 99 mmol/L (98-107); Potassium 4.8 mmol/L (3.5-5.1); Sodium 138 mmol/L (136-145)
[2023-05-20 06:13] LABS: Anion Gap 15 (5-15); Calcium 8.8 mg/dL (8.5-10.1); Carbon Dioxide 24 mmol/L (20-30)
[2023-05-20 06:17] LABS: Basophils # (auto) 0 10 ^3/uL (0-0.2); Basophils % (auto) 0.1 % (0.0-2.0); Eosinophils # (auto) 0 10 ^3/uL (0-0.8); Hematocrit 28.1 % (36.0-46.0); Hemoglobin 9.2 g/dL (12.2-16.2); Lymphocytes # (auto) 1.4 10 ^3/uL (0.4-5.4); Lymphocytes % (auto) 8.5 % (10.0-50.0); Mean Corpuscular Hemoglobin 31.4 pg (28.0-32.0); Mean Corpuscular Hgb Conc. 32.7 g/dL (32.0-36.0); Mean Corpuscular Volume 95.9 fL (80.0-100.0); Monocytes # (auto) 0.4 10 ^3/uL (0-1.3); Monocytes % (auto) 2.6 % (0.0-12.0); Neutrophils # (auto) 14.8 10 ^3/uL (1.6-8.6); Neutrophils % (auto) 88.8 % (37.0-80.0); Red Blood Cells 2.92 10^6/uL (4.0-5.20); White Blood Cell 16.7 10^3/uL (4.4-10.8)
[2023-05-20 06:18] LABS: Glucose 122 mg/dL (74-106)
[2023-05-20 06:53] LABS: BUN/Creatinine Ratio 7.9 (10.0-20.0); Blood Urea Nitrogen 36 mg/dL (9-23)
[2023-05-20] MEDS ORDERED: LEVOTHYROXINE SODIUM 50 MCG TAB PO SCH (07:00)
[2023-05-20] MEDS ORDERED: SODIUM CHL 0.9% 1000 ML BAG XX ONE (07:00)
[2023-05-20] MEDS ORDERED: LEVOTHYROXINE SODIUM 25 MCG TAB PO SCH ×2 (07:00)
[2023-05-20] MEDS ORDERED: LEVOTHYROXINE SODIUM 112 MCG TAB PO SCH (07:00)
[2023-05-20] MEDS ORDERED: LORazepam 2MG/ML-1ML VIAL IV PRN (09:15)
[2023-05-20] MEDS ORDERED: NIFEdipine ER 30 MG TAB PO SCH (10:00)
[2023-05-20] MEDS: ASPirin 81 mg TAB PO SCH (10:08)
[2023-05-20] MEDS: APIXABAN 2.5 MG TAB PO SCH ×2 (10:09→23:47)
[2023-05-20] MEDS: AMIODARONE HCL 200 MG TAB PO SCH (10:09)
[2023-05-20] MEDS: cloNIDine HCL 0.1 MG TAB PO SCH ×3 (10:09→23:48)
[2023-05-20] MEDS ORDERED: EPOETIN ALFA-EPBX 10,000 UNIT/1ML VIAL SC ONE (21:00)
[2023-05-20] MEDS: ATORVASTATIN 20 MG TAB PO SCH (23:47)
[2023-05-21] VITALS (15 sets, daily range): BP systolic 106–128; BP diastolic 49–63; PULSE 84–131; RESP 16–25; TEMP 97.5–98.6; O2SAT 94–99
[2023-05-21] MEDS: PIPERACILLIN-TAZOB 3.375GM 100 ML IV SCH ×2 (03:32→15:21)
[2023-05-21] MEDS: LEVOTHYROXINE SODIUM 112 MCG TAB PO SCH (05:18)
[2023-05-21] MEDS: LEVOTHYROXINE SODIUM 25 MCG TAB PO SCH (05:19)
[2023-05-21] MEDS: FUROSEMIDE 100 MG/10ML VIAL IV SCH ×2 (05:23→18:10)
[2023-05-21] MEDS: AMIODARONE HCL 200 MG TAB PO SCH (06:09)
[2023-05-21] MEDS: NIFEdipine ER 30 MG TAB PO SCH ×2 (07:45→09:49)
[2023-05-21] MEDS: ALBUTEROL SULF 2.5 MG/0.5ML(0.5%) NEB SOLN NEB PRN ×2 (07:52→18:44)
[2023-05-21] MEDS: IPRATROPIUM BROM 0.5 MG/2.5ML INH SOL NEB PRN ×2 (07:52→22:05)
[2023-05-21 09:37] LABS: Eosinophils # (auto) 0 10 ^3/uL (0-0.8); Hemoglobin 8.3 g/dL (12.2-16.2); Lymphocytes % (auto) 2.9 % (10.0-50.0); Mean Corpuscular Volume 97.8 fL (80.0-100.0); Monocytes # (auto) 0.4 10 ^3/uL (0-1.3)
[2023-05-21 09:38] LABS: Basophils # (auto) 0 10 ^3/uL (0-0.2); Basophils % (auto) 0.1 % (0.0-2.0); Hematocrit 25.8 % (36.0-46.0); Lymphocytes # (auto) 0.4 10 ^3/uL (0.4-5.4); Mean Corpuscular Hemoglobin 31.4 pg (28.0-32.0); Mean Corpuscular Hgb Conc. 32.1 g/dL (32.0-36.0); Monocytes % (auto) 2.6 % (0.0-12.0); Neutrophils # (auto) 14.4 10 ^3/uL (1.6-8.6); Neutrophils % (auto) 94.4 % (37.0-80.0); Red Blood Cells 2.64 10^6/uL (4.0-5.20); Red Cell Distribution Width 16.4 % (11.8-14.3); White Blood Cell 15.3 10^3/uL (4.4-10.8)
[2023-05-21] MEDS: ASPirin 81 mg TAB PO SCH (09:48)
[2023-05-21] MEDS: APIXABAN 2.5 MG TAB PO SCH ×2 (09:48→21:12)
[2023-05-21] MEDS: cloNIDine HCL 0.1 MG TAB PO SCH ×2 (09:48→22:37)
[2023-05-21] MEDS ORDERED: ALBUMIN 25% 100 ML IV ONE (09:50)
[2023-05-21 10:12] LABS: Anion Gap 15 (5-15); Carbon Dioxide 24 mmol/L (20-30); Chloride 98 mmol/L (98-107); Potassium 4.3 mmol/L (3.5-5.1); Sodium 137 mmol/L (136-145)
[2023-05-21 10:13] LABS: Calcium 8.2 mg/dL (8.5-10.1)
[2023-05-21 10:18] LABS: BUN/Creatinine Ratio 8.5 (10.0-20.0); Glucose 110 mg/dL (74-106)
[2023-05-21 10:26] LABS: Blood Urea Nitrogen 51 mg/dL (9-23)
[2023-05-21] MEDS ORDERED: METO-289 PO (14:54)
[2023-05-21] MEDS ORDERED: CLON0.1T PO (14:57)
[2023-05-21] MEDS ORDERED: NIFE90TA75 PO (14:57)
[2023-05-21] MEDS ORDERED: METOPROLOL TARTRATE 1MG/1ML-5ML VIAL IV SCH (20:45)
[2023-05-21] MEDS: ATORVASTATIN 20 MG TAB PO SCH (21:12)
[2023-05-21] MEDS: PIPERACILLIN-TAZOB 2.25GM 50 ML IV SCH (21:12)
[2023-05-22] VITALS (11 sets, daily range): BP systolic 112–136; BP diastolic 41–73; PULSE 97–137; RESP 16–20; TEMP 97.7–98.8; O2SAT 95–100
[2023-05-22 05:19] LABS: Anion Gap 9 (5-15); Basophils # (auto) 0 10 ^3/uL (0-0.2); Carbon Dioxide 31 mmol/L (20-30); Chloride 100 mmol/L (98-107); Eosinophils # (auto) 0 10 ^3/uL (0-0.8); Neutrophils # (auto) 9.6 10 ^3/uL (1.6-8.6); Potassium 3.6 mmol/L (3.5-5.1); Sodium 140 mmol/L (136-145); White Blood Cell 10.7 10^3/uL (4.4-10.8)
[2023-05-22 05:20] LABS: Calcium 8.7 mg/dL (8.5-10.1)
[2023-05-22 05:22] LABS: Basophils % (auto) 0.1 % (0.0-2.0); Eosinophils % (auto) 0.3 % (0.0-7.0); Hematocrit 23.5 % (36.0-46.0); Hemoglobin 8.1 g/dL (12.2-16.2); Lymphocytes # (auto) 0.8 10 ^3/uL (0.4-5.4); Lymphocytes % (auto) 7.8 % (10.0-50.0); Mean Corpuscular Hemoglobin 32.7 pg (28.0-32.0); Mean Corpuscular Hgb Conc. 34.4 g/dL (32.0-36.0); Monocytes # (auto) 0.2 10 ^3/uL (0-1.3); Monocytes % (auto) 2.3 % (0.0-12.0); Neutrophils % (auto) 89.5 % (37.0-80.0); Red Blood Cells 2.47 10^6/uL (4.0-5.20); Red Cell Distribution Width 16.5 % (11.8-14.3)
[2023-05-22 05:25] LABS: BUN/Creatinine Ratio 9.3 (10.0-20.0); Glucose 87 mg/dL (74-106)
[2023-05-22 05:39] LABS: Blood Urea Nitrogen 37 mg/dL (9-23)
[2023-05-22] MEDS: FUROSEMIDE 100 MG/10ML VIAL IV SCH ×2 (06:13→17:42)
[2023-05-22] MEDS: LEVOTHYROXINE SODIUM 25 MCG TAB PO SCH (06:13)
[2023-05-22] MEDS: LEVOTHYROXINE SODIUM 112 MCG TAB PO SCH (06:13)
[2023-05-22] MEDS: IPRATROPIUM BROM 0.5 MG/2.5ML INH SOL NEB PRN ×2 (07:31→21:21)
[2023-05-22] MEDS: ALBUTEROL SULF 2.5 MG/0.5ML(0.5%) NEB SOLN NEB PRN ×2 (07:33→21:21)
[2023-05-22] MEDS ORDERED: SODIUM CHL 0.9% 1000 ML BAG XX ONE (07:45)
[2023-05-22] MEDS ORDERED: ALBUMIN 25% 100 ML IV PRN (07:45)
[2023-05-22] MEDS: NIFEdipine ER 30 MG TAB PO SCH (10:00)
[2023-05-22] MEDS: APIXABAN 2.5 MG TAB PO SCH ×2 (11:58→21:07)
[2023-05-22] MEDS: PIPERACILLIN-TAZOB 2.25GM 50 ML IV SCH ×2 (11:58→22:40)
[2023-05-22] MEDS: ASPirin 81 mg TAB PO SCH (12:00)
[2023-05-22] MEDS: AMIODARONE HCL 200 MG TAB PO SCH (12:00)
[2023-05-22] MEDS: cloNIDine HCL 0.1 MG TAB PO SCH ×2 (12:02→21:06)
[2023-05-22] MEDS: ATORVASTATIN 20 MG TAB PO SCH (21:07)
[2023-05-23] VITALS (15 sets, daily range): BP systolic 92–127; BP diastolic 49–81; PULSE 74–114; RESP 16–18; TEMP 97.1–98.4; O2SAT 94–100
[2023-05-23 05:16] LABS: Chloride 103 mmol/L (98-107); Potassium 4.1 mmol/L (3.5-5.1); Sodium 141 mmol/L (136-145)
[2023-05-23 05:17] LABS: Anion Gap 11 (5-15); Calcium 8.6 mg/dL (8.7-10.4); Carbon Dioxide 27 mmol/L (20-30)
[2023-05-23 05:19] LABS: Basophils # (auto) 0 10 ^3/uL (0-0.2); Basophils % (auto) 0.1 % (0.0-2.0); Eosinophils # (auto) 0.3 10 ^3/uL (0-0.8); Eosinophils % (auto) 2.4 % (0.0-7.0); Hematocrit 25.5 % (36.0-46.0); Hemoglobin 8.5 g/dL (12.2-16.2); Lymphocytes # (auto) 1.2 10 ^3/uL (0.4-5.4); Lymphocytes % (auto) 10.9 % (10.0-50.0); Mean Corpuscular Hemoglobin 31.8 pg (28.0-32.0); Mean Corpuscular Hgb Conc. 33.2 g/dL (32.0-36.0); Mean Corpuscular Volume 95.9 fL (80.0-100.0); Monocytes # (auto) 0.4 10 ^3/uL (0-1.3); Monocytes % (auto) 3.4 % (0.0-12.0); Neutrophils % (auto) 83.2 % (37.0-80.0); Red Blood Cells 2.66 10^6/uL (4.0-5.20); Red Cell Distribution Width 16.6 % (11.8-14.3); White Blood Cell 10.8 10^3/uL (4.4-10.8)
[2023-05-23 05:22] LABS: BUN/Creatinine Ratio 9.2 (10.0-20.0); Blood Urea Nitrogen 28 mg/dL (9-23); Glucose 82 mg/dL (74-106)
[2023-05-23] MEDS: LEVOTHYROXINE SODIUM 112 MCG TAB PO SCH (06:08)
[2023-05-23] MEDS: LEVOTHYROXINE SODIUM 25 MCG TAB PO SCH (06:08)
[2023-05-23] MEDS: FUROSEMIDE 100 MG/10ML VIAL IV SCH ×2 (06:08→18:18)
[2023-05-23] MEDS: ASPirin 81 mg TAB PO SCH (09:46)
[2023-05-23] MEDS: PIPERACILLIN-TAZOB 2.25GM 50 ML IV SCH (09:46)
[2023-05-23] MEDS: AMIODARONE HCL 200 MG TAB PO SCH (09:48)
[2023-05-23] MEDS: APIXABAN 2.5 MG TAB PO SCH ×2 (09:48→21:33)
[2023-05-23] MEDS: NIFEdipine ER 30 MG TAB PO SCH (09:51)
[2023-05-23] MEDS: cloNIDine HCL 0.1 MG TAB PO SCH ×2 (10:00→21:31)
[2023-05-23] MEDS: ATORVASTATIN 20 MG TAB PO SCH (21:32)
[2023-05-23] MEDS: DOXYCYCLINE 100 MG TAB/CAP PO SCH (21:33)
[2023-05-24] VITALS (13 sets, daily range): BP systolic 94–126; BP diastolic 46–63; PULSE 63–121; RESP 16–22; TEMP 97.4–98.1; O2SAT 94–100
[2023-05-24] MEDS: LEVOTHYROXINE SODIUM 25 MCG TAB PO SCH (06:14)
[2023-05-24] MEDS: LEVOTHYROXINE SODIUM 112 MCG TAB PO SCH (06:14)
[2023-05-24] MEDS: FUROSEMIDE 100 MG/10ML VIAL IV SCH ×2 (06:21→17:57)
[2023-05-24] MEDS: AMIODARONE HCL 200 MG TAB PO SCH (10:30)
[2023-05-24] MEDS: DOXYCYCLINE 100 MG TAB/CAP PO SCH ×2 (10:30→22:28)
[2023-05-24] MEDS: APIXABAN 2.5 MG TAB PO SCH ×2 (10:30→22:29)
[2023-05-24] MEDS: ASPirin 81 mg TAB PO SCH (10:31)
[2023-05-24] MEDS: cloNIDine HCL 0.1 MG TAB PO SCH ×2 (10:32→22:29)
[2023-05-24] MEDS: NIFEdipine ER 30 MG TAB PO SCH (10:33)
[2023-05-24 11:38] LABS: Eosinophils # (auto) 0.5 10 ^3/uL (0-0.8); Lymphocytes # (auto) 1.1 10 ^3/uL (0.4-5.4); Monocytes % (auto) 4.1 % (0.0-12.0)
[2023-05-24 11:40] LABS: Basophils # (auto) 0.1 10 ^3/uL (0-0.2); Basophils % (auto) 0.5 % (0.0-2.0); Hematocrit 27.5 % (36.0-46.0); Hemoglobin 8.5 g/dL (12.2-16.2); Lymphocytes % (auto) 8.4 % (10.0-50.0); Mean Corpuscular Hemoglobin 31.3 pg (28.0-32.0); Mean Corpuscular Hgb Conc. 30.8 g/dL (32.0-36.0); Mean Corpuscular Volume 101.7 fL (80.0-100.0); Monocytes # (auto) 0.5 10 ^3/uL (0-1.3); Neutrophils # (auto) 11.1 10 ^3/uL (1.6-8.6); Nucleated Red Blood Cells % 0.2 %; Red Cell Distribution Width 17.3 % (11.8-14.3); White Blood Cell 13.4 10^3/uL (4.4-10.8)
[2023-05-24 11:48] LABS: Anion Gap 11 (5-15); Carbon Dioxide 25 mmol/L (20-30); Chloride 102 mmol/L (98-107); Potassium 4.5 mmol/L (3.5-5.1); Sodium 138 mmol/L (136-145)
[2023-05-24 11:49] LABS: Calcium 9.1 mg/dL (8.5-10.1)
[2023-05-24 11:54] LABS: BUN/Creatinine Ratio 7.7 (10.0-20.0); Glucose 109 mg/dL (74-106)
[2023-05-24 11:56] LABS: Blood Urea Nitrogen 39 mg/dL (9-23)
[2023-05-24] MEDS ORDERED: cefTRIAXone 1GM/50ML D5W 50 ML IV ONE (16:45)
[2023-05-24] MEDS: ATORVASTATIN 20 MG TAB PO SCH (22:28)
[2023-05-25] VITALS (12 sets, daily range): BP systolic 89–133; BP diastolic 47–74; PULSE 85–118; RESP 17–20; TEMP 97.5–97.8; O2SAT 97–100
[2023-05-25 04:44] LABS: Urine Epithelial Cast None Seen /hpf (<5)
[2023-05-25 05:00] LABS: Urine Bacteria NONE SEEN /hpf (None Seen); Urine Blood 3+ /uL (Negative); Urine Clarity HAZY (Clear); Urine Color PINK (Yellow); Urine Mucus FEW (None Seen); Urine Protein, UAD 3+ (Negative); Urine Specific Gravity 1.022 (1.001-1.035); Urine Urobilinogen Normal (Negative); Urine WBC 74 /hpf (0 - 5)
[2023-05-25] MEDS: FUROSEMIDE 100 MG/10ML VIAL IV SCH (05:46)
[2023-05-25] MEDS: LEVOTHYROXINE SODIUM 112 MCG TAB PO SCH (05:50)
[2023-05-25] MEDS: LEVOTHYROXINE SODIUM 25 MCG TAB PO SCH (05:51)
[2023-05-25 06:17] LABS: Eosinophils # (auto) 0.5 10 ^3/uL (0-0.8); Lymphocytes # (auto) 1.5 10 ^3/uL (0.4-5.4); Neutrophils # (auto) 9.2 10 ^3/uL (1.6-8.6)
[2023-05-25 06:18] LABS: Basophils # (auto) 0 10 ^3/uL (0-0.2); Basophils % (auto) 0.4 % (0.0-2.0); Eosinophils % (auto) 4.6 % (0.0-7.0); Hematocrit 24.7 % (36.0-46.0); Lymphocytes % (auto) 12.5 % (10.0-50.0); Mean Corpuscular Hemoglobin 31.1 pg (28.0-32.0); Mean Corpuscular Hgb Conc. 32.4 g/dL (32.0-36.0); Monocytes # (auto) 0.4 10 ^3/uL (0-1.3); Monocytes % (auto) 3.7 % (0.0-12.0); Neutrophils % (auto) 78.8 % (37.0-80.0); Red Blood Cells 2.58 10^6/uL (4.0-5.20); Red Cell Distribution Width 16.4 % (11.8-14.3); White Blood Cell 11.7 10^3/uL (4.4-10.8)
[2023-05-25] MEDS: cefTRIAXone 1GM/50ML D5W 50 ML IV SCH (09:21)
[2023-05-25] MEDS: NIFEdipine ER 30 MG TAB PO SCH (09:21)
[2023-05-25] MEDS: APIXABAN 2.5 MG TAB PO SCH ×2 (09:22→21:46)
[2023-05-25] MEDS: cloNIDine HCL 0.1 MG TAB PO SCH (09:22)
[2023-05-25] MEDS: ASPirin 81 mg TAB PO SCH (09:22)
[2023-05-25] MEDS: AMIODARONE HCL 200 MG TAB PO SCH (09:22)
[2023-05-25] MEDS: DOXYCYCLINE 100 MG TAB/CAP PO SCH ×2 (09:23→21:45)
[2023-05-25] MEDS ORDERED: cloNIDine HCL 0.1 MG TAB PO PRN (13:00)
[2023-05-25] MEDS ORDERED: methylPREDNISolone SOD SUCC 40 MG/ML VL IV ONE (14:00)
[2023-05-25] MEDS ORDERED: ALBUTEROL SULF 2.5 MG/0.5ML(0.5%) NEB SOLN NEB PRN (14:15)
[2023-05-25] MEDS: IPRATROPIUM BROM 0.5 MG/2.5ML INH SOL NEB SCH (19:32)
[2023-05-25] MEDS: ALBUTEROL SULF 2.5 MG/0.5ML(0.5%) NEB SOLN NEB SCH (19:32)
[2023-05-25] MEDS: predniSONE 20 MG TAB PO SCH (21:45)
[2023-05-25] MEDS: ATORVASTATIN 20 MG TAB PO SCH (21:46)
[2023-05-26] VITALS (15 sets, daily range): BP systolic 109–131; BP diastolic 45–98; PULSE 86–120; RESP 16–20; TEMP 97.5–98.3; O2SAT 98–100
[2023-05-26] MEDS: IPRATROPIUM BROM 0.5 MG/2.5ML INH SOL NEB SCH ×4 (00:03→18:40)
[2023-05-26] MEDS: ALBUTEROL SULF 2.5 MG/0.5ML(0.5%) NEB SOLN NEB SCH ×4 (00:03→18:40)
[2023-05-26] MEDS: LEVOTHYROXINE SODIUM 25 MCG TAB PO SCH (06:33)
[2023-05-26] MEDS: LEVOTHYROXINE SODIUM 112 MCG TAB PO SCH (06:33)
[2023-05-26] MEDS: AMIODARONE HCL 200 MG TAB PO SCH (09:24)
[2023-05-26] MEDS: cefTRIAXone 1GM/50ML D5W 50 ML IV SCH (09:24)
[2023-05-26] MEDS: predniSONE 20 MG TAB PO SCH (09:24)
[2023-05-26] MEDS: DOXYCYCLINE 100 MG TAB/CAP PO SCH ×2 (09:24→22:08)
[2023-05-26] MEDS: APIXABAN 2.5 MG TAB PO SCH ×2 (09:24→22:09)
[2023-05-26] MEDS: ASPirin 81 mg TAB PO SCH (09:25)
[2023-05-26] MEDS: NIFEdipine ER 30 MG TAB PO SCH (09:25)
[2023-05-26] MEDS: ATORVASTATIN 20 MG TAB PO SCH (22:08)
[2023-05-27] VITALS (13 sets, daily range): BP systolic 101–153; BP diastolic 45–78; PULSE 78–127; RESP 16–20; TEMP 97.7–98.2; O2SAT 93–100
[2023-05-27] MEDS: IPRATROPIUM BROM 0.5 MG/2.5ML INH SOL NEB SCH ×3 (00:29→12:25)
[2023-05-27] MEDS: ALBUTEROL SULF 2.5 MG/0.5ML(0.5%) NEB SOLN NEB SCH ×3 (00:30→12:26)
[2023-05-27] MEDS: LEVOTHYROXINE SODIUM 112 MCG TAB PO SCH (06:18)
[2023-05-27] MEDS: LEVOTHYROXINE SODIUM 25 MCG TAB PO SCH (06:18)
[2023-05-27 06:29] LABS: Basophils # (auto) 0 10 ^3/uL (0-0.2); Basophils % (auto) 0.1 % (0.0-2.0); Eosinophils # (auto) 0 10 ^3/uL (0-0.8); Hematocrit 24.3 % (36.0-46.0); Hemoglobin 8.1 g/dL (12.2-16.2); Lymphocytes # (auto) 0.9 10 ^3/uL (0.4-5.4); Mean Corpuscular Volume 94.6 fL (80.0-100.0); Monocytes # (auto) 0.8 10 ^3/uL (0-1.3); Neutrophils % (auto) 87.8 % (37.0-80.0)
[2023-05-27 06:31] LABS: Lymphocytes % (auto) 6.5 % (10.0-50.0); Mean Corpuscular Hemoglobin 31.5 pg (28.0-32.0); Mean Corpuscular Hgb Conc. 33.3 g/dL (32.0-36.0); Monocytes % (auto) 5.6 % (0.0-12.0); Neutrophils # (auto) 12.1 10 ^3/uL (1.6-8.6); Red Blood Cells 2.56 10^6/uL (4.0-5.20); Red Cell Distribution Width 16.7 % (11.8-14.3); White Blood Cell 13.8 10^3/uL (4.4-10.8)
[2023-05-27 06:34] LABS: Chloride 101 mmol/L (98-107); Sodium 139 mmol/L (136-145)
[2023-05-27 06:35] LABS: Anion Gap 12 (5-15); Carbon Dioxide 26 mmol/L (20-30)
[2023-05-27 06:36] LABS: Calcium 9.4 mg/dL (8.7-10.4)
[2023-05-27 06:40] LABS: Blood Urea Nitrogen 41 mg/dL (9-23); Glucose 85 mg/dL (74-106)
[2023-05-27] MEDS ORDERED: predniSONE 20 MG TAB PO SCH (07:00)
[2023-05-27] MEDS: APIXABAN 2.5 MG TAB PO SCH (10:14)
[2023-05-27] MEDS: ASPirin 81 mg TAB PO SCH (10:14)
[2023-05-27] MEDS: AMIODARONE HCL 200 MG TAB PO SCH (10:15)
[2023-05-27] MEDS: DOXYCYCLINE 100 MG TAB/CAP PO SCH (10:15)
[2023-05-27] MEDS: NIFEdipine ER 30 MG TAB PO SCH (10:15)
[2023-06-02] MEDS ORDERED: MET500T PO ×2 (10:09)
== END 2023-05-27 15:30 | disposition home or self-care (01) | DRG 871 ==
LOC: ER 00:55 → EDBD 00:55 → TELE 06:22 → TELE-CENTR 23:50 → TELE 05-19 01:57 → TELE-WESTW 05-19 22:45 → WEST WING 05-26 17:23
PROVIDERS: ADMIT Internal Medicine; ATTEND Internal Medicine
PROC: 5A1D70Z Performance of Urinary Filtration, Intermittent, Less than 6 Hours Per Day (ICD-10-PCS; 2023-05-18)
PROC: 5A09357 Assistance with Respiratory Ventilation, Less than 24 Consecutive Hours, Continuous Positive Airway Pressure (ICD-10-PCS; 2023-05-18)
PROC: 5A09357 Assistance with Respiratory Ventilation, Less than 24 Consecutive Hours, Continuous Positive Airway Pressure (ICD-10-PCS; 2023-05-19)
PROC: 5A09357 Assistance with Respiratory Ventilation, Less than 24 Consecutive Hours, Continuous Positive Airway Pressure (ICD-10-PCS; 2023-05-20)
PROC: 5A1D70Z Performance of Urinary Filtration, Intermittent, Less than 6 Hours Per Day (ICD-10-PCS; 2023-05-21)
PROC: 5A09357 Assistance with Respiratory Ventilation, Less than 24 Consecutive Hours, Continuous Positive Airway Pressure (ICD-10-PCS; 2023-05-21)
PROC: 5A1D70Z Performance of Urinary Filtration, Intermittent, Less than 6 Hours Per Day (ICD-10-PCS; 2023-05-22)
PROC: 5A09357 Assistance with Respiratory Ventilation, Less than 24 Consecutive Hours, Continuous Positive Airway Pressure (ICD-10-PCS; 2023-05-22)
PROC: 5A09357 Assistance with Respiratory Ventilation, Less than 24 Consecutive Hours, Continuous Positive Airway Pressure (ICD-10-PCS; 2023-05-23)
PROC: 5A09357 Assistance with Respiratory Ventilation, Less than 24 Consecutive Hours, Continuous Positive Airway Pressure (ICD-10-PCS; 2023-05-24)
PROC: 5A09357 Assistance with Respiratory Ventilation, Less than 24 Consecutive Hours, Continuous Positive Airway Pressure (ICD-10-PCS; 2023-05-25)
PROC: 5A1D70Z Performance of Urinary Filtration, Intermittent, Less than 6 Hours Per Day (ICD-10-PCS; principal; 2023-05-26)
PROC: 5A09357 Assistance with Respiratory Ventilation, Less than 24 Consecutive Hours, Continuous Positive Airway Pressure (ICD-10-PCS; 2023-05-26)
DX: A41.9 Sepsis, unspecified organism (principal); I50.31 Acute diastolic (congestive) heart failure; N18.6 End stage renal disease; J96.01 Acute respiratory failure with hypoxia; N17.0 Acute kidney failure with tubular necrosis; J15.69 Pneumonia due to other Gram-negative bacteria; J15.9 Unspecified bacterial pneumonia; I13.2 Hypertensive heart and chronic kidney disease with heart failure and with stage 5 chronic kidney disease, or end stage renal disease; D63.1 Anemia in chronic kidney disease; E03.9 Hypothyroidism, unspecified; I48.0 Paroxysmal atrial fibrillation; M10.9 Gout, unspecified; I95.9 Hypotension, unspecified; D50.9 Iron deficiency anemia, unspecified; F17.210 Nicotine dependence, cigarettes, uncomplicated; K57.90 Diverticulosis of intestine, part unspecified, without perforation or abscess without bleeding; Z99.2 Dependence on renal dialysis; Z82.49 Family history of ischemic heart disease and other diseases of the circulatory system; Z90.710 Acquired absence of both cervix and uterus; Z88.2 Allergy status to sulfonamides; I25.2 Old myocardial infarction
CPT/HCPCS: 36415; 36600; 70450; 71045; 71250; 74176; 80048; 80053; 80074; 81001; 82306; 82728; 82805; 83605; 83880; 83970; 84100; 84443; 84484; 85025; 85610; 85730; 87040; 87081; 87086; 87426; 87804; 90935; 93306; 93970; 94640; 94660; 96365; 96367; 96372; 96375; 97110; 97116; 97163; 97530; G0378; J1100; J1642; J2543; P9047

== ENCOUNTER 2023-05-29 12:41 | Inpatient (IN) | payer MEDICARE, OTHER ==
[~2023-05-29] VITALS: Ht 152.4 cm; Wt 56.6 kg
[~2023-05-29 12:41] MED LIST changes: -AMIO200T33 PO; -CHL4PW PO; +CLON0.1T PO; +METO-289 PO; -METO25TA36 PO; +NIFE90TA75 PO; -SACC250C PO; -VANC125PO PO
[2023-05-29] MEDS: SODIUM CHLORIDE 0.9% 500 ML IV ONE (13:23)
[2023-05-29 14:05] LABS: Alanine Aminotransferase 115 U/L (7-40); Albumin 4.5 g/dL (3.2-4.8); Alkaline Phosphatase 175 U/L (46-116); Anion Gap 12 (5-15); Aspartate Aminotransferase 33 U/L (13-40); BUN/Creatinine Ratio 8.4 (10.0-20.0); Bilirubin, Total 0.6 mg/dL (0.2-1.0); Blood Urea Nitrogen 34 mg/dL (9-23); Calcium 8.8 mg/dL (8.7-10.4); Carbon Dioxide 23 mmol/L (20-30); Chloride 106 mmol/L (98-107); Glucose 95 mg/dL (74-106); Potassium 4.2 mmol/L (3.5-5.1); Sodium 141 mmol/L (136-145); Total Protein 6.6 g/dL (5.7-8.2)
[2023-05-29 14:06] LABS: Eosinophils # (auto) 0 10 ^3/uL (0-0.8); Hemoglobin 7.5 g/dL (12.2-16.2); Monocytes % (auto) 7.6 % (0.0-12.0); Neutrophils # (auto) 10.4 10 ^3/uL (1.6-8.6)
[2023-05-29 14:09] LABS: Basophils # (auto) 0.1 10 ^3/uL (0-0.2); Basophils % (auto) 0.5 % (0.0-2.0); Eosinophils % (auto) 0.2 % (0.0-7.0); Hematocrit 23.5 % (36.0-46.0); Lymphocytes # (auto) 1.7 10 ^3/uL (0.4-5.4); Lymphocytes % (auto) 12.8 % (10.0-50.0); Mean Corpuscular Hemoglobin 30.7 pg (28.0-32.0); Mean Corpuscular Hgb Conc. 31.7 g/dL (32.0-36.0); Mean Corpuscular Volume 96.7 fL (80.0-100.0); Neutrophils % (auto) 78.9 % (37.0-80.0); Nucleated Red Blood Cells % 0.1 %; Red Blood Cells 2.43 10^6/uL (4.0-5.20); Red Cell Distribution Width 17.4 % (11.8-14.3); White Blood Cell 13.1 10^3/uL (4.4-10.8)
[2023-05-29 14:46] LABS: INR 1.52 (0.9-1.15); Partial Thromboplastin Time 38.5 SEC (24.5-34.5); Prothrombin Time 15.8 sec (9.3-11.8)
[2023-05-29] MEDS: PANTOPRAZOLE 40 MG/10 ML VIAL INJ IV ONE (15:56)
[2023-05-29 19:04] VITALS: PULSE 58; RESP 12; O2SAT 98
[2023-05-29 19:30] VITALS: PULSE 58; RESP 18; O2SAT 98
[2023-05-29] MEDS ORDERED: ACETAMINOPHEN 325 MG TAB PO PRN (21:15)
[2023-05-29] MEDS ORDERED: DOCUSATE SOD 100 MG CAP PO PRN (21:15)
[2023-05-29] MEDS: cloNIDine HCL 0.1 MG TAB PO SCH (22:00)
[2023-05-29] MEDS: SODIUM CHLOR 0.9% PF (SALINE LOCK) 10ML VIAL/SYR IV SCH (22:07)
[2023-05-29 23:34] LABS: Mean Corpuscular Hemoglobin 31.7 pg (28.0-32.0); Nucleated Red Blood Cells % 0.1 %
[2023-05-29 23:36] LABS: Basophils # (auto) 0 10 ^3/uL (0-0.2); Basophils % (auto) 0.4 % (0.0-2.0); Eosinophils # (auto) 0 10 ^3/uL (0-0.8); Eosinophils % (auto) 0.4 % (0.0-7.0); Hematocrit 21.4 % (36.0-46.0); Lymphocytes % (auto) 17.7 % (10.0-50.0); Mean Corpuscular Hgb Conc. 32.2 g/dL (32.0-36.0); Mean Corpuscular Volume 98.4 fL (80.0-100.0); Monocytes % (auto) 8.8 % (0.0-12.0); Neutrophils # (auto) 8.2 10 ^3/uL (1.6-8.6); Neutrophils % (auto) 72.7 % (37.0-80.0); Red Blood Cells 2.18 10^6/uL (4.0-5.20); Red Cell Distribution Width 17.9 % (11.8-14.3); White Blood Cell 11.3 10^3/uL (4.4-10.8)
[2023-05-29 23:50] VITALS: BP 125/57; PULSE 95; RESP 18; TEMP 97.8; O2SAT 96
[2023-05-29 23:53] LABS: Hemoglobin 6.9 g/dL (12.2-16.2)
[2023-05-30] VITALS (15 sets, daily range): BP systolic 100–136; BP diastolic 43–65; PULSE 58–116; RESP 16–19; TEMP 97.4–98.7; O2SAT 92–100
[2023-05-30 01:46] LABS: Platelet Estimate Adequate
[2023-05-30] MEDS: LEVOTHYROXINE SODIUM 50 MCG TAB PO SCH (06:07)
[2023-05-30] MEDS: SEVELAMER 800 MG TAB PO SCH (08:00)
[2023-05-30 08:24] LABS: Basophils # (auto) 0 10 ^3/uL (0-0.2); Basophils % (auto) 0.3 % (0.0-2.0); Eosinophils # (auto) 0.1 10 ^3/uL (0-0.8); Eosinophils % (auto) 0.4 % (0.0-7.0); Hematocrit 29.1 % (36.0-46.0); Hemoglobin 9.1 g/dL (12.2-16.2); Lymphocytes # (auto) 1.3 10 ^3/uL (0.4-5.4); Lymphocytes % (auto) 10.7 % (10.0-50.0); Mean Corpuscular Hemoglobin 30.3 pg (28.0-32.0); Mean Corpuscular Hgb Conc. 31.3 g/dL (32.0-36.0); Mean Corpuscular Volume 96.8 fL (80.0-100.0); Monocytes % (auto) 7.8 % (0.0-12.0); Neutrophils # (auto) 10.2 10 ^3/uL (1.6-8.6); Neutrophils % (auto) 80.8 % (37.0-80.0); Nucleated Red Blood Cells % 0.2 %; Red Blood Cells 3.01 10^6/uL (4.0-5.20); Red Cell Distribution Width 17.4 % (11.8-14.3); White Blood Cell 12.6 10^3/uL (4.4-10.8)
[2023-05-30] MEDS: SODIUM CHL 0.9% 1000 ML BAG XX ONE (09:15)
[2023-05-30] MEDS: NIFEdipine ER 30 MG TAB PO SCH (09:52)
[2023-05-30] MEDS: PANTOPRAZOLE 40 MG/10 ML VIAL INJ IV ONE (14:25)
[2023-05-30] MEDS: MIRTAZAPINE 30 MG TAB PO SCH (18:00)
[2023-05-30] MEDS: TRAVOPROST EYE EACHEYE SCH (18:00)
[2023-05-30] MEDS: PANTOPRAZOLE 80 MG in SODIUM CHL 0.9% 100 ML IV ONE (20:38)
[2023-05-30] MEDS: EPOETIN ALFA-EPBX 10,000 UNIT/1ML VIAL SC ONE (20:46)
[2023-05-30] MEDS: PANTOPRAZOLE 40mg/50ML NS AE 50 ML IV SCH (20:49)
[2023-05-30 21:16] LABS: Basophils # (auto) 0.1 10 ^3/uL (0-0.2); Basophils % (auto) 0.6 % (0.0-2.0); Eosinophils # (auto) 0.1 10 ^3/uL (0-0.8); Eosinophils % (auto) 0.8 % (0.0-7.0); Hematocrit 30.9 % (36.0-46.0); Hemoglobin 9.8 g/dL (12.2-16.2); Lymphocytes # (auto) 1.3 10 ^3/uL (0.4-5.4); Lymphocytes % (auto) 11.3 % (10.0-50.0); Mean Corpuscular Hemoglobin 30.2 pg (28.0-32.0); Mean Corpuscular Hgb Conc. 31.7 g/dL (32.0-36.0); Mean Corpuscular Volume 95.2 fL (80.0-100.0); Monocytes # (auto) 0.9 10 ^3/uL (0-1.3); Monocytes % (auto) 7.6 % (0.0-12.0); Neutrophils # (auto) 9.2 10 ^3/uL (1.6-8.6); Neutrophils % (auto) 79.7 % (37.0-80.0); Nucleated Red Blood Cells % 0.5 %; Red Blood Cells 3.24 10^6/uL (4.0-5.20); White Blood Cell 11.6 10^3/uL (4.4-10.8)
[2023-05-30] MEDS: ATORVASTATIN 20 MG TAB PO SCH (21:33)
[2023-05-30] MEDS ORDERED: PANTOPRAZOLE 40 MG/10 ML VIAL INJ IV SCH (22:00)
[2023-05-31] VITALS (11 sets, daily range): BP systolic 83–157; BP diastolic 18–58; PULSE 59–84; RESP 16–19; TEMP 97.4–98.6; O2SAT 90–98
[2023-05-31 05:37] LABS: Basophils # (auto) 0.1 10 ^3/uL (0-0.2); Basophils % (auto) 0.7 % (0.0-2.0); Eosinophils # (auto) 0.1 10 ^3/uL (0-0.8); Eosinophils % (auto) 1.1 % (0.0-7.0); Hematocrit 27.8 % (36.0-46.0); Lymphocytes # (auto) 1.3 10 ^3/uL (0.4-5.4); Lymphocytes % (auto) 12.9 % (10.0-50.0); Mean Corpuscular Hemoglobin 31.1 pg (28.0-32.0); Mean Corpuscular Hgb Conc. 32.4 g/dL (32.0-36.0); Mean Corpuscular Volume 96.1 fL (80.0-100.0); Monocytes # (auto) 0.9 10 ^3/uL (0-1.3); Neutrophils # (auto) 7.7 10 ^3/uL (1.6-8.6); Neutrophils % (auto) 76.3 % (37.0-80.0); Nucleated Red Blood Cells % 0.4 %; Red Blood Cells 2.89 10^6/uL (4.0-5.20); Red Cell Distribution Width 16.6 % (11.8-14.3); White Blood Cell 10.1 10^3/uL (4.4-10.8)
[2023-05-31 05:55] LABS: Alanine Aminotransferase 70 U/L (7-40); Alkaline Phosphatase 147 U/L (46-116); Chloride 105 mmol/L (98-107); Potassium 3.2 mmol/L (3.5-5.1); Sodium 145 mmol/L (136-145)
[2023-05-31 06:06] LABS: Calcium 8.2 mg/dL (8.7-10.4)
[2023-05-31 06:11] LABS: BUN/Creatinine Ratio 5.4 (10.0-20.0); Blood Urea Nitrogen 18 mg/dL (9-23); Glucose 51 mg/dL (74-106)
[2023-05-31 06:12] LABS: Aspartate Aminotransferase 27 U/L (13-40)
[2023-05-31 06:13] LABS: Albumin 3.8 g/dL (3.2-4.8); Bilirubin, Total 0.7 mg/dL (0.2-1.0)
[2023-05-31 07:21] LABS: Anion Gap 15 (5-15); Carbon Dioxide 25 mmol/L (20-30)
[2023-05-31 09:22] LABS: Basophils # (auto) 0.1 10 ^3/uL (0-0.2); Basophils % (auto) 0.8 % (0.0-2.0); Eosinophils # (auto) 0.1 10 ^3/uL (0-0.8); Eosinophils % (auto) 0.7 % (0.0-7.0); Hematocrit 31.9 % (36.0-46.0); Hemoglobin 10.4 g/dL (12.2-16.2); Lymphocytes % (auto) 10.1 % (10.0-50.0); Mean Corpuscular Hemoglobin 31.4 pg (28.0-32.0); Mean Corpuscular Hgb Conc. 32.5 g/dL (32.0-36.0); Mean Corpuscular Volume 96.8 fL (80.0-100.0); Monocytes # (auto) 0.8 10 ^3/uL (0-1.3); Monocytes % (auto) 7.4 % (0.0-12.0); Neutrophils # (auto) 8.4 10 ^3/uL (1.6-8.6); Nucleated Red Blood Cells % 0.1 %; Red Cell Distribution Width 17.3 % (11.8-14.3); White Blood Cell 10.3 10^3/uL (4.4-10.8)
[2023-05-31] MEDS: POTASSIUM EFFERVESENT TAB 25 MEQ PO ONE ×2 (09:44→11:05)
[2023-05-31] MEDS: metroNIDAZOLE 500 MG TAB PO ONE (15:55)
[2023-05-31 20:18] LABS: Basophils # (auto) 0.1 10 ^3/uL (0-0.2); Basophils % (auto) 0.8 % (0.0-2.0); Eosinophils # (auto) 0.1 10 ^3/uL (0-0.8); Eosinophils % (auto) 1.3 % (0.0-7.0); Hematocrit 27.6 % (36.0-46.0); Lymphocytes # (auto) 1.3 10 ^3/uL (0.4-5.4); Lymphocytes % (auto) 13.8 % (10.0-50.0); Mean Corpuscular Hemoglobin 31.1 pg (28.0-32.0); Mean Corpuscular Hgb Conc. 32.6 g/dL (32.0-36.0); Mean Corpuscular Volume 95.3 fL (80.0-100.0); Monocytes # (auto) 0.8 10 ^3/uL (0-1.3); Monocytes % (auto) 8.2 % (0.0-12.0); Neutrophils # (auto) 7.4 10 ^3/uL (1.6-8.6); Neutrophils % (auto) 75.9 % (37.0-80.0); Nucleated Red Blood Cells % 0.2 %; Red Blood Cells 2.89 10^6/uL (4.0-5.20); Red Cell Distribution Width 16.9 % (11.8-14.3); White Blood Cell 9.8 10^3/uL (4.4-10.8)
[2023-05-31] MEDS: metroNIDAZOLE 500 MG TAB PO SCH (22:13)
[2023-06-01] VITALS (13 sets, daily range): BP systolic 100–114; BP diastolic 40–70; PULSE 63–80; RESP 16–20; TEMP 97.4–98.3; O2SAT 20–99
[2023-06-01] MEDS: HYDROcodone-ACET 5/325MG TAB PO PRN (01:42)
[2023-06-01 05:14] LABS: Basophils # (auto) 0.1 10 ^3/uL (0-0.2); Basophils % (auto) 0.9 % (0.0-2.0); Eosinophils # (auto) 0.3 10 ^3/uL (0-0.8); Eosinophils % (auto) 2.3 % (0.0-7.0); Hematocrit 26.4 % (36.0-46.0); Hemoglobin 8.6 g/dL (12.2-16.2); Lymphocytes # (auto) 1.4 10 ^3/uL (0.4-5.4); Lymphocytes % (auto) 13.2 % (10.0-50.0); Mean Corpuscular Hemoglobin 31.2 pg (28.0-32.0); Mean Corpuscular Hgb Conc. 32.7 g/dL (32.0-36.0); Mean Corpuscular Volume 95.5 fL (80.0-100.0); Monocytes # (auto) 0.8 10 ^3/uL (0-1.3); Monocytes % (auto) 7.7 % (0.0-12.0); Neutrophils # (auto) 8.3 10 ^3/uL (1.6-8.6); Neutrophils % (auto) 75.9 % (37.0-80.0); Nucleated Red Blood Cells % 0.1 %; Red Blood Cells 2.76 10^6/uL (4.0-5.20); Red Cell Distribution Width 16.8 % (11.8-14.3); White Blood Cell 10.9 10^3/uL (4.4-10.8)
[2023-06-01 05:19] LABS: Chloride 105 mmol/L (98-107); Potassium 3.4 mmol/L (3.5-5.1); Sodium 142 mmol/L (136-145)
[2023-06-01 05:20] LABS: Anion Gap 10 (5-15); Calcium 8.1 mg/dL (8.7-10.4); Carbon Dioxide 27 mmol/L (20-30)
[2023-06-01 05:25] LABS: BUN/Creatinine Ratio 5.3 (10.0-20.0); Blood Urea Nitrogen 26 mg/dL (9-23); Glucose 80 mg/dL (74-106)
[2023-06-01 05:26] LABS: Magnesium 2.1 mg/dL (1.6-2.6)
[2023-06-01 09:07] LABS: Basophils # (auto) 0.1 10 ^3/uL (0-0.2); Basophils % (auto) 0.9 % (0.0-2.0); Eosinophils # (auto) 0.2 10 ^3/uL (0-0.8); Eosinophils % (auto) 2.5 % (0.0-7.0); Hematocrit 28.3 % (36.0-46.0); Hemoglobin 9.2 g/dL (12.2-16.2); Lymphocytes # (auto) 1.2 10 ^3/uL (0.4-5.4); Lymphocytes % (auto) 11.8 % (10.0-50.0); Mean Corpuscular Hemoglobin 31.1 pg (28.0-32.0); Mean Corpuscular Hgb Conc. 32.4 g/dL (32.0-36.0); Mean Corpuscular Volume 95.9 fL (80.0-100.0); Monocytes # (auto) 0.7 10 ^3/uL (0-1.3); Monocytes % (auto) 7.5 % (0.0-12.0); Neutrophils # (auto) 7.6 10 ^3/uL (1.6-8.6); Neutrophils % (auto) 77.3 % (37.0-80.0); Nucleated Red Blood Cells % 0.1 %; Red Blood Cells 2.95 10^6/uL (4.0-5.20); Red Cell Distribution Width 16.9 % (11.8-14.3); White Blood Cell 9.8 10^3/uL (4.4-10.8)
[2023-06-01] MEDS ORDERED: POTASSIUM CHLORIDE 20 MEQ, LIDOCAINE 1% (LOCAL ANESTH.) 2 ML in SODIUM CHL 0.9% 100 ML IV ONE (09:45)
[2023-06-01] MEDS: POTASSIUM EFFERVESENT TAB 25 MEQ PO ONE (11:42)
[2023-06-01 20:21] LABS: Basophils # (auto) 0.1 10 ^3/uL (0-0.2); Basophils % (auto) 0.8 % (0.0-2.0); Eosinophils # (auto) 0.2 10 ^3/uL (0-0.8); Eosinophils % (auto) 2.4 % (0.0-7.0); Hematocrit 26.3 % (36.0-46.0); Hemoglobin 8.7 g/dL (12.2-16.2); Lymphocytes # (auto) 1.1 10 ^3/uL (0.4-5.4); Lymphocytes % (auto) 10.9 % (10.0-50.0); Mean Corpuscular Hemoglobin 31.6 pg (28.0-32.0); Mean Corpuscular Hgb Conc. 33.2 g/dL (32.0-36.0); Mean Corpuscular Volume 95.2 fL (80.0-100.0); Monocytes # (auto) 0.7 10 ^3/uL (0-1.3); Monocytes % (auto) 6.7 % (0.0-12.0); Neutrophils % (auto) 79.2 % (37.0-80.0); Nucleated Red Blood Cells % 0.1 %; Red Blood Cells 2.76 10^6/uL (4.0-5.20); Red Cell Distribution Width 16.4 % (11.8-14.3); White Blood Cell 10.1 10^3/uL (4.4-10.8)
[2023-06-01] MEDS: APIXABAN 2.5 MG TAB PO SCH (21:36)
[2023-06-02] VITALS (8 sets, daily range): BP systolic 100–128; BP diastolic 44–78; PULSE 67–115; RESP 16–18; TEMP 96.7–98.1; O2SAT 92–99
[2023-06-02 05:12] LABS: Basophils # (auto) 0.1 10 ^3/uL (0-0.2); Hemoglobin 8.2 g/dL (12.2-16.2); Lymphocytes # (auto) 1.3 10 ^3/uL (0.4-5.4); Monocytes # (auto) 0.8 10 ^3/uL (0-1.3); Neutrophils # (auto) 7.3 10 ^3/uL (1.6-8.6); Nucleated Red Blood Cells % 0.1 %
[2023-06-02 05:17] LABS: Basophils % (auto) 1.2 % (0.0-2.0); Eosinophils # (auto) 0.3 10 ^3/uL (0-0.8); Eosinophils % (auto) 3.3 % (0.0-7.0); Hematocrit 25.1 % (36.0-46.0); Lymphocytes % (auto) 13.1 % (10.0-50.0); Mean Corpuscular Hemoglobin 31.1 pg (28.0-32.0); Mean Corpuscular Hgb Conc. 32.7 g/dL (32.0-36.0); Monocytes % (auto) 8.3 % (0.0-12.0); Neutrophils % (auto) 74.1 % (37.0-80.0); Red Blood Cells 2.64 10^6/uL (4.0-5.20); White Blood Cell 9.9 10^3/uL (4.4-10.8)
[2023-06-02 05:39] LABS: Alanine Aminotransferase 49 U/L (7-40); Albumin 3.4 g/dL (3.2-4.8); Alkaline Phosphatase 137 U/L (46-116); Anion Gap 8 (5-15); Aspartate Aminotransferase 22 U/L (13-40); BUN/Creatinine Ratio 4.8 (10.0-20.0); Bilirubin, Total 0.5 mg/dL (0.2-1.0); Blood Urea Nitrogen 29 mg/dL (9-23); Calcium 8.1 mg/dL (8.7-10.4); Carbon Dioxide 27 mmol/L (20-30); Chloride 104 mmol/L (98-107); Glucose 80 mg/dL (74-106); Potassium 4.3 mmol/L (3.5-5.1); Sodium 139 mmol/L (136-145); Total Protein 5.5 g/dL (5.7-8.2)
[2023-06-02] MEDS ORDERED: SODIUM CHL 0.9% 1000 ML BAG XX ONE (07:00)
[2023-06-02] MEDS ORDERED: MET500T PO (10:09)
[2023-06-02] MEDS ORDERED: VANCOMYCIN HCL 125 MG CAP PO SCH (18:00)
[2023-06-02] MEDS ORDERED: VANC125C3 PO (18:05)
[2023-06-02] MEDS ORDERED: EPOETIN ALFA-EPBX 10,000 UNIT/1ML VIAL SC ONE (21:00)
[2023-06-05 08:41] LABS: Hepatitis B Surface Antigen Negative (Negative)
[2023-06-05 08:58] LABS: Hepatitis A Ab IgM Negative
[2023-06-05 08:59] LABS: Hepatitis B Core IgM Negative; Hepatitis C Antibody Negative (Negative)
== END 2023-06-02 18:45 | disposition home or self-care (01) | DRG 371 ==
LOC: ER 12:41 → TELE 21:12 → TELE-CENTR 21:12
PROVIDERS: ADMIT Internal Medicine Pulmonary Disease; ATTEND Internal Medicine Pulmonary Disease
PROC: 30233N1 Transfusion of Nonautologous Red Blood Cells into Peripheral Vein, Percutaneous Approach (ICD-10-PCS; principal; 2023-05-30)
PROC: 5A1D70Z Performance of Urinary Filtration, Intermittent, Less than 6 Hours Per Day (ICD-10-PCS; 2023-05-30)
PROC: 5A09357 Assistance with Respiratory Ventilation, Less than 24 Consecutive Hours, Continuous Positive Airway Pressure (ICD-10-PCS; 2023-05-30)
PROC: 5A09357 Assistance with Respiratory Ventilation, Less than 24 Consecutive Hours, Continuous Positive Airway Pressure (ICD-10-PCS; 2023-05-31)
PROC: 5A09357 Assistance with Respiratory Ventilation, Less than 24 Consecutive Hours, Continuous Positive Airway Pressure (ICD-10-PCS; 2023-06-01)
PROC: 5A1D70Z Performance of Urinary Filtration, Intermittent, Less than 6 Hours Per Day (ICD-10-PCS; 2023-06-02)
PROC: 5A09357 Assistance with Respiratory Ventilation, Less than 24 Consecutive Hours, Continuous Positive Airway Pressure (ICD-10-PCS; 2023-06-02)
DX: A04.72 Enterocolitis due to Clostridium difficile, not specified as recurrent (principal); I50.31 Acute diastolic (congestive) heart failure; N17.0 Acute kidney failure with tubular necrosis; N18.6 End stage renal disease; I13.2 Hypertensive heart and chronic kidney disease with heart failure and with stage 5 chronic kidney disease, or end stage renal disease; D62 Acute posthemorrhagic anemia; I48.20 Chronic atrial fibrillation, unspecified; M10.9 Gout, unspecified; R19.7 Diarrhea, unspecified; R74.01 Elevation of levels of liver transaminase levels; R31.9 Hematuria, unspecified; D72.829 Elevated white blood cell count, unspecified; E87.6 Hypokalemia; E03.9 Hypothyroidism, unspecified; D63.1 Anemia in chronic kidney disease; I48.0 Paroxysmal atrial fibrillation; E78.5 Hyperlipidemia, unspecified; F17.210 Nicotine dependence, cigarettes, uncomplicated; J44.9 Chronic obstructive pulmonary disease, unspecified; Z82.49 Family history of ischemic heart disease and other diseases of the circulatory system; Z90.710 Acquired absence of both cervix and uterus; Z99.2 Dependence on renal dialysis; I25.2 Old myocardial infarction; Z88.2 Allergy status to sulfonamides
CPT/HCPCS: 36415; 74176; 80048; 80053; 80074; 82306; 83605; 83735; 83970; 84100; 84484; 85025; 85610; 85730; 86850; 86900; 86901; 86920; 87081; 87493; 90935; 94660; 99291; C9113; G0378; J2001

== ENCOUNTER 2024-01-20 12:22 | Inpatient (IN) | payer MEDICARE, OTHER ==
[~2024-01-20] VITALS: Ht 152.4 cm; Wt 62.0 kg
[~2024-01-20 12:22] MED LIST changes: +VANC125C3 PO
[2024-01-20 13:11] LABS: Basophils # (auto) 0.1 10 ^3/uL (0-0.2); Eosinophils # (auto) 0.2 10 ^3/uL (0-0.8); Lymphocytes # (auto) 0.6 10 ^3/uL (0.4-5.4); Monocytes # (auto) 0.3 10 ^3/uL (0-1.3); Monocytes % (auto) 6.5 % (0.0-12.0); Nucleated Red Blood Cells % 0.1 %; White Blood Cell 5.2 10^3/uL (4.4-10.8)
[2024-01-20 13:12] LABS: Basophils % (auto) 1.3 % (0.0-2.0); Eosinophils % (auto) 4.3 % (0.0-7.0); Hematocrit 34.7 % (36.0-46.0); Hemoglobin 11.7 g/dL (12.2-16.2); Lymphocytes % (auto) 11.8 % (10.0-50.0); Mean Corpuscular Hemoglobin 35.3 pg (28.0-32.0); Mean Corpuscular Hgb Conc. 33.8 g/dL (32.0-36.0); Mean Corpuscular Volume 104.5 fL (80.0-100.0); Neutrophils % (auto) 76.1 % (37.0-80.0); Platelet Count (auto) 185 10^3/uL (140-450); Red Blood Cells 3.32 10^6/uL (4.0-5.20); Red Cell Distribution Width 15.9 % (11.8-14.3)
[2024-01-20 13:49] LABS: Alanine Aminotransferase 19 U/L (7-40); Albumin 3.9 g/dL (3.2-4.8); Alkaline Phosphatase 115 U/L (46-116); Anion Gap 7 (5-15); Aspartate Aminotransferase 12 U/L (13-40); BUN/Creatinine Ratio 7.2 (10.0-20.0); Bilirubin, Total 0.2 mg/dL (0.2-1.0); Blood Urea Nitrogen 41 mg/dL (9-23); Calcium 9.5 mg/dL (8.7-10.4); Carbon Dioxide 26 mmol/L (20-30); Chloride 100 mmol/L (98-107); Glucose 157 mg/dL (74-106); Potassium 5.3 mmol/L (3.5-5.1); Sodium 133 mmol/L (136-145); Total Protein 5.7 g/dL (5.7-8.2)
[2024-01-20 16:55] VITALS: PULSE 68; RESP 16; O2SAT 98
[2024-01-20] MEDS ORDERED: HYDROmorphone HCL 2 MG/ML VL/or syr IV PRN (17:30)
[2024-01-20] MEDS ORDERED: HYDROcodone-ACET 5/325MG TAB PO PRN (17:30)
[2024-01-20] MEDS ORDERED: ACETAMINOPHEN 325 MG TAB PO PRN (17:30)
[2024-01-20] MEDS ORDERED: DOCUSATE SOD 100 MG CAP PO PRN (17:30)
[2024-01-20] MEDS: PANTOPRAZOLE 40 MG/10 ML VIAL INJ IV SCH (18:16)
[2024-01-20] MEDS: SODIUM ZIRCONIUM CYCL 10 GM PAK PO ONE (18:16)
[2024-01-20] MEDS: SODIUM CHLOR 0.9% PF (SALINE LOCK) 10ML VIAL/SYR IV SCH (22:10)
[2024-01-20 22:55] VITALS: BP 138/64; PULSE 65; RESP 16; TEMP 97.8; O2SAT 98
[2024-01-21] VITALS (13 sets, daily range): BP systolic 135–173; BP diastolic 52–72; PULSE 59–67; RESP 14–18; TEMP 97.1–98.7; O2SAT 93–99
[2024-01-21] MEDS ORDERED: hydrALAZINE HCL 20 MG/ML VL IV ONE (01:15)
[2024-01-21] MEDS: SODIUM CHL 0.9% 1000 ML BAG XX ONE (07:00)
[2024-01-21 07:14] LABS: Hemoglobin 11.7 g/dL (12.2-16.2); Nucleated Red Blood Cells % 0.1 %
[2024-01-21 07:17] LABS: Basophils # (auto) 0.1 10 ^3/uL (0-0.2); Basophils % (auto) 1.3 % (0.0-2.0); Eosinophils # (auto) 0.3 10 ^3/uL (0-0.8); Eosinophils % (auto) 4.8 % (0.0-7.0); Hematocrit 33.7 % (36.0-46.0); Lymphocytes # (auto) 1.4 10 ^3/uL (0.4-5.4); Lymphocytes % (auto) 22.4 % (10.0-50.0); Mean Corpuscular Hemoglobin 35.9 pg (28.0-32.0); Mean Corpuscular Hgb Conc. 34.7 g/dL (32.0-36.0); Mean Corpuscular Volume 103.5 fL (80.0-100.0); Monocytes # (auto) 0.5 10 ^3/uL (0-1.3); Monocytes % (auto) 8.6 % (0.0-12.0); Neutrophils % (auto) 62.9 % (37.0-80.0); Platelet Count (auto) 205 10^3/uL (140-450); Red Blood Cells 3.26 10^6/uL (4.0-5.20); Red Cell Distribution Width 15.4 % (11.8-14.3); White Blood Cell 6.3 10^3/uL (4.4-10.8)
[2024-01-21 07:29] LABS: Alanine Aminotransferase 18 U/L (7-40); Albumin 4.1 g/dL (3.2-4.8); Alkaline Phosphatase 116 U/L (46-116); Anion Gap 11 (5-15); Aspartate Aminotransferase < 8 U/L (13-40); BUN/Creatinine Ratio 7.2 (10.0-20.0); Bilirubin, Total 0.3 mg/dL (0.2-1.0); Blood Urea Nitrogen 50 mg/dL (9-23); Calcium 9.8 mg/dL (8.7-10.4); Carbon Dioxide 23 mmol/L (20-30); Chloride 99 mmol/L (98-107); Glucose 55 mg/dL (74-106); Magnesium 2.4 mg/dL (1.6-2.6); Potassium 5.1 mmol/L (3.5-5.1); Sodium 133 mmol/L (136-145)
[2024-01-21 07:30] LABS: Total Protein 6.2 g/dL (5.7-8.2)
[2024-01-21 12:52] LABS: Free T3 1.13 pg/mL (2.3-4.2)
[2024-01-21 12:53] LABS: Free T4 (Free Thyroxine) 1.32 ng/dL (0.89-1.76)
[2024-01-21] MEDS: cloNIDine HCL 0.1 MG TAB PO ONE (17:00)
[2024-01-21] MEDS: ATORVASTATIN 20 MG TAB PO ONE (17:38)
[2024-01-21] MEDS: LEVOTHYROXINE SODIUM 50 MCG TAB PO ONE (17:38)
[2024-01-21] MEDS ORDERED: EPOETIN ALFA-EPBX 10,000 UNIT/1ML VIAL SC ONE (21:00)
[2024-01-21] MEDS: HEPARIN SODIUM (PORCINE) 5000 UNITS/ML 1ML VIAL SC SCH (21:33)
[2024-01-21] MEDS: MIRTAZAPINE 30 MG TAB PO SCH (21:34)
[2024-01-22] VITALS (10 sets, daily range): BP systolic 154–170; BP diastolic 57–80; PULSE 58–68; RESP 16–19; TEMP 36.6; O2SAT 93–99
[2024-01-22 07:45] LABS: Basophils # (auto) 0.1 10 ^3/uL (0-0.2); Basophils % (auto) 1.1 % (0.0-2.0); Eosinophils # (auto) 0.3 10 ^3/uL (0-0.8); Eosinophils % (auto) 5.3 % (0.0-7.0); Hematocrit 35.8 % (36.0-46.0); Hemoglobin 12.2 g/dL (12.2-16.2); Lymphocytes # (auto) 1.2 10 ^3/uL (0.4-5.4); Lymphocytes % (auto) 19.2 % (10.0-50.0); Mean Corpuscular Hemoglobin 34.9 pg (28.0-32.0); Mean Corpuscular Volume 102.5 fL (80.0-100.0); Monocytes # (auto) 0.6 10 ^3/uL (0-1.3); Monocytes % (auto) 9.9 % (0.0-12.0); Neutrophils # (auto) 4.1 10 ^3/uL (1.6-8.6); Neutrophils % (auto) 64.5 % (37.0-80.0); Nucleated Red Blood Cells % 0.3 %; Platelet Count (auto) 225 10^3/uL (140-450); Red Blood Cells 3.49 10^6/uL (4.0-5.20); Red Cell Distribution Width 15.6 % (11.8-14.3); White Blood Cell 6.3 10^3/uL (4.4-10.8)
[2024-01-22 07:52] LABS: Alanine Aminotransferase 12 U/L (7-40); Albumin 4.2 g/dL (3.2-4.8); Alkaline Phosphatase 114 U/L (46-116); Anion Gap 9 (5-15); Aspartate Aminotransferase < 8 U/L (13-40); BUN/Creatinine Ratio 5.6 (10.0-20.0); Bilirubin, Total 0.3 mg/dL (0.2-1.0); Calcium 9.6 mg/dL (8.7-10.4); Carbon Dioxide 29 mmol/L (20-30); Chloride 100 mmol/L (98-107); Glucose 72 mg/dL (74-106); Magnesium 2.3 mg/dL (1.6-2.6); Potassium 3.9 mmol/L (3.5-5.1); Sodium 138 mmol/L (136-145)
[2024-01-22 07:53] LABS: Blood Urea Nitrogen 30 mg/dL (9-23); Total Protein 6.3 g/dL (5.7-8.2)
[2024-01-22 09:00] LABS: Hepatitis B Surface Antigen Negative (Negative)
[2024-01-22 09:22] LABS: Hepatitis A Ab IgM Negative; Hepatitis B Core IgM Negative
[2024-01-22 09:23] LABS: Hepatitis C Antibody Negative (Negative)
[2024-01-22] MEDS: ALLOPURINOL 100 MG TAB PO SCH (09:26)
== END 2024-01-22 14:00 | disposition home or self-care (01) | DRG 640 ==
LOC: ER 12:22 → EDBD 12:22 → OVERFLOW 17:32 → WEST WING 22:52
PROVIDERS: ADMIT Internal Medicine Pulmonary Disease; ATTEND Surgery
PROC: 5A09357 Assistance with Respiratory Ventilation, Less than 24 Consecutive Hours, Continuous Positive Airway Pressure (ICD-10-PCS; principal; 2024-01-21)
PROC: 5A1D70Z Performance of Urinary Filtration, Intermittent, Less than 6 Hours Per Day (ICD-10-PCS; 2024-01-21)
PROC: 5A09357 Assistance with Respiratory Ventilation, Less than 24 Consecutive Hours, Continuous Positive Airway Pressure (ICD-10-PCS; 2024-01-22)
DX: E87.5 Hyperkalemia (principal); N18.6 End stage renal disease; I13.2 Hypertensive heart and chronic kidney disease with heart failure and with stage 5 chronic kidney disease, or end stage renal disease; I50.30 Unspecified diastolic (congestive) heart failure; Z99.2 Dependence on renal dialysis; D63.1 Anemia in chronic kidney disease; E83.39 Other disorders of phosphorus metabolism; I48.91 Unspecified atrial fibrillation; G47.33 Obstructive sleep apnea (adult) (pediatric); F17.210 Nicotine dependence, cigarettes, uncomplicated; E03.9 Hypothyroidism, unspecified; M10.9 Gout, unspecified; I25.10 Atherosclerotic heart disease of native coronary artery without angina pectoris; E78.5 Hyperlipidemia, unspecified; Z82.49 Family history of ischemic heart disease and other diseases of the circulatory system; Z90.710 Acquired absence of both cervix and uterus; Z88.2 Allergy status to sulfonamides; Z79.899 Other long term (current) drug therapy; Z79.2 Long term (current) use of antibiotics; I25.2 Old myocardial infarction
CPT/HCPCS: 36415; 70450; 70551; 80053; 80074; 80320; 82306; 82607; 83735; 84100; 84439; 84443; 84481; 84484; 85025; 87081; 90935; 93005; 93306; 93886; 94660; 96374; G0378; J2470

== ENCOUNTER 2024-09-13 18:29 | Emergency (ER) | payer MEDICARE, OTHER ==
[~2024-09-13] VITALS: Ht 154.9 cm; Wt 54.5 kg
[~2024-09-13 18:29] MED LIST changes: +PANT40TA2 PO; -VANC125C3 PO
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
[2024-09-13 22:11] VITALS: BP 163/65; PULSE 67; RESP 18; TEMP 98.5; O2SAT 100
[2024-09-13] MEDS: ACETAMINOPHEN 500 MG TAB or CAP PO ONE (22:17)
== END 2024-09-13 22:28 | disposition home or self-care (01) ==
LOC: ER 18:29 → EDBD 18:29 → ER 22:26
DX: S13.4XXA Sprain of ligaments of cervical spine, initial encounter (principal); R51.9 Headache, unspecified; I12.0 Hypertensive chronic kidney disease with stage 5 chronic kidney disease or end stage renal disease; N18.6 End stage renal disease; F17.210 Nicotine dependence, cigarettes, uncomplicated; E78.5 Hyperlipidemia, unspecified; I25.2 Old myocardial infarction; M10.9 Gout, unspecified; Z90.710 Acquired absence of both cervix and uterus; Z88.2 Allergy status to sulfonamides; Z79.899 Other long term (current) drug therapy; Z79.01 Long term (current) use of anticoagulants; V43.52XA Car driver injured in collision with other type car in traffic accident, initial encounter; Y93.89 Activity, other specified; Y92.410 Unspecified street and highway as the place of occurrence of the external cause; Y99.8 Other external cause status
CPT/HCPCS: 70450; 72125